=== PATIENT | female | born 1955 | race African-American/Black ===

== ENCOUNTER 2022-01-19 02:04 | Emergency (ER) | payer OTHER ==
--- OUTSIDE RECORDS SUMMARY | 2022-01-19 02:06 | XMS REPORT | Clinical Summary ---
:1955 Author Organization [facility] MD [facility] Address [address] [place] [address] Care Team Providers Name Role Phone Lul Tang MD Unavailable Katiana Ramirez RD Unavailable Unavailable Zeny Parr MD Primary Care Provider Allergies No known active allergies Medications Medication Sig Dispensed Refills Start Date End Date Status cholecalciferol, Take 1,000 0 Ac tive vitamin D3, 1,000 Units by units tablet mouth daily. cyanocobalamin Take 50 mcg 0 Act ting (VITAMIN B-12) 50 mcg by mouth tablet daily. multivitamin Take 1 0 Active (THERAGRAN) tablet tablet by mouth daily. pregabalin (LYRICA) Take 150 mg 0 Active 150 mg capsule by mouth twice daily. aspirin 81 mg EC Take 81 mg 0 Ac tive tablet by mouth. finasteride (PROSCAR) TAKE ONE (1) 0 09/14/2021 Active 1 mg tablet TABLET(S) BY MOUTH ONCE A DAY. spironolactone TAKE ONE (1) 0 11/03/2021 A ctive (ALDACTONE) 50 mg TABLET(S) BY tablet MOUTH ONCE A DAY. propranolol (INDERAL daily. 1 07/23/2017 01/19/20 22 Discontinued LA) 60 mg 24 hr capsule amLODIPine (NORVASC) daily. 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 Cancer Staging: Clinical stage from 11/13: Stage IB (cT1c, cN0, cM0, G3, ER: Negative, SC: Negative, HER2: Negative) - Signed by Andreina Huang MD on 11/13/2017 Pathologic stage from 06/16/2019: No Stag e Recommended (ypT1mi, pN0, cM0, G3, ER- , SC-, HER2-) - Signed by Rena Bai MD on 06/16/2019 Lump in right breast 10/30/2017 Mammography abnormal 10/30/2017 Encounters Date Type Specialty Care Team Description 01/18/2022 Consult Dermatology Vilma Reaves, Postmenopausa l androgenetic alopecia (Primary Dx); Loss of scalp h air; Itching of lesi on of skin; Pain of skin; Hypertrophic brian rgical scar 01/18/2022 Travel 12/25/2021 Orders Only Breast Surgical Rena Bai Loss of sc alp hair Oncology Susanna Pathak, (Primary Dx) 12/07/2021 Office Visit Breast Surgical Rena Bai Cancer of right female Oncology Susanna Pathak, breast, not ot herwise specified 12/07/2021 Ancillary Radiology Yasmany Peraza, Cancer of righ t female Procedure PA breast, not oth erwise specified 12/07/2021 Orders Only Oncology Daren, Triple-negative breast MANUEL Lau cancer <Female> (Primary Dx) 12/07/2021 Orders Only Thoracic Medicine Zeny Parr MD Triple-ne gative breast cancer <Female> (Primary Dx) 12/07/2021 Travel after 01/19/2021 Immunizations Name Administration Dates Next Due Influenza, Unspecified 02/18/2018 Surgical History Surgery Date Site/Laterality Comments COLONOSCOPY 05/19/2013 - Every 3 years - benign 05/18/2014 polyps. HYSTERECTOMY 05/19/1989 - one ovary left 05/18/1990 KNEE SURGERY 05/19/2004 - unsure exactly w hat kind 05/18/2005 of surgery, afte r fall TUMOR REMOVAL 05/19/1983 - malignant fatty tumor 05/18/1984 removal from LEF T leg COLONOSCOPY W/ BIOPSIES 11/05/2017 Medical History Medical History Date Comments Hypertension 20 years ago Regulated with medic ations Migraine Controlled with medi cation Loss of sense of smell 2014 Unspecified lump in unspecified 10/22/2017 Lump in RIGHT breast, Dr. Tang breast discovered 1 week ag o. 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 Mammography abnormal 2015, 2016 RIGHT breast - ivelisse tional view [place], no biopsies. History of radiation therapy 1983 Left leg an d lymph nodes after surgery for removal of malignant fatty tumor. Family History Medical History Relation Name Comments Prostate cancer Brother 1 Joseph Gould Diabetes Brother 2 Rickie Gould Hypertension Father Lai Mckeon Colon cancer Maternal Aunt Eden Smith Hypertension Mother Renea Mckeon Lung cancer Sister Antonietta Chua smoker Breast cancer Neg Hx Ovarian cancer Neg Hx Pancreatic cancer Neg Hx Relation Name Status Comments Brother 1 Joseph Gould Brother 2 Rickie Gould Father Lai Mckeon Maternal Aunt Eden Smith Mother Renea Mckeon Sister Antonietta Chua Social History Tobacco Use Types Packs/Day Years Used Date Never Smoker Smokeless Tobacco: Never Used Alcohol Use Standard Drinks/Week Comments No 0 (1 standard drink = 0.6 oz pure alcoho l) Sex Assigned at Date Recorded Not on file Job Start Date Occupation Industry Not on file Not on file Not on file COVID-19 Exposure Response Date Recorded In the last 10 days, have you been in contact with No / Unsu re 01/18/2022 2:07 PM CDT someone who was confirmed or suspected to have Coronavirus/COVID-19? 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 Plan of Treatment Date Type Specialty Care Team Description 06/10/2022 Office Visit Oncology Judi Mercedes, MANUEL [address] [facility] [address] [place], [place] [address] (Wo rk) 12/06/2022 Lab Lab Zeny Parr MD [address] [place], [place] [address] (Wo rk) 12/06/2022 Ancillary Procedure Radiology Zeny Parr M D [address] [place], [place] [address] (Wo rk) 12/06/2022 Office Visit Oncology Zeny Parr MD [address] [place], [place] [address] (Wo rk) Health Maintenance Due Date Last Done Comments COVID-19 Vaccination (3 - Booster for 01/01/2021 08/01/2020 , 07/11/2020 Pfizer series) Procedures Procedure Name Priority Date/Time Associated Comments Diagnosis MAMMO DIGITAL Routine 12/07/2021 9:53 AM Cancer of right Resul ts for this DIAGNOSTIC BILATERAL CDT female breast, not p rocedure are in W NAGI otherwise specified the resu lts section. after 01/19/2021 Results Mammography Digital Diagnostic Bilateral with Nagi (12/07/2021 9:53 AM CDT) Anatomical Region Laterality Modality Breast Bilateral Mammography Specimen (Source) Anatomical Collection Method Collection Time Re ceived Time Location / / Volume Laterality 12/07/2021 9:54 AM CDT Impressions 12/07/2021 9:54 AM CDT There is no mammographic evidence of malignancy. Follow-up mammogram in 1 year is recomme nded. BI-RADS Category 2: Benign Finding(s) Narrative 12/07/2021 9:54 AM CDT CLINICAL INDICATION: Patient is a 66 year old female and is s een for history of breast cancer MAMMO DIGITAL DIAGNOSTIC BILATERAL W WILLIAM O Digital Mammogram evaluated with Compute r Aided Detection (CAD). COMPARISON: The present examination has been compare d to prior imaging studies performed at an outside location on 04/02/2017, at [facility] on 02/11/2018, and at [facility] on 04/28/2018, 12/01/2018, 12/14/2019 and 11/24/2020. FINDINGS: The breast is heterogeneously dense, whi ch may obscure small masses. There is a post-surgical scar in the rig ht breast. Finding remains unchanged from the prior study. In the left breast, no dominant mass, di stortion, or suspicious calcifications are identified. Tomosynthesis performed in CC and MLO pr ojections. Procedure Note Maximino Preciado MD - 12/07/2021Formattin g of this note might be different from the original. CLINICAL INDICATION: Patient is a 66 year old female and is s een for history of breast cancer MAMMO DIGITAL DIAGNOSTIC BILATERAL W WILLIAM O Digital Mammogram evaluated with Compute r Aided Detection (CAD). COMPARISON: The present examination has been compare d to prior imaging studies performed at an outside location on 04/02/2017, at [facility] on 02/11/2018, and at [facility] on 04/28/2018, 12/01/2018, 12/14/2019 and 11/24/2020. FINDINGS: The breast is heterogeneously dense, whi ch may obscure small masses. There is a post-surgical scar in the rig ht breast. Finding remains unchanged from the prior study. In the left breast, no dominant mass, di stortion, or suspicious calcifications are identified. Tomosynthesis performed in CC and MLO pr ojections. IMPRESSION: There is no mammographic evidence of mal ignancy. Follow-up mammogram in 1 year is recomme nded. BI-RADS Category 2: Benign Finding(s) Yasmany PERALTA IMRah MAMMOGRAPHY ORDERABLES after 01/19/2021 Insurance Payer Benefit Plan Subscriber ID Effective Phone Address Typ e / Group Dates MEDICARE MEDICARE PART [id number] 2020-Prese [phone] [facility] Medicare A AND B nt [address] [place] [address] [employer] MANAGED A[employer] HMO [id number] 2020-Pres [address] HMO [id number] [place] [address] Grace Onofre Personal/Family Self 1955 [address] (Home) [place] [address] Grace Onofre Personal/Family Self 1955 [address] (Home) [place] [address] Care Teams Cardiovascular Technician Relationship Specialty Start Date End Date Lul Tang, PCP - External Referring 10/23/[address] [place] [address] [place], [place] [id number] Zeny Parr MD PCP - General Medical Oncology 03/11/[address] [place] [id number] Katiana Ramirez, RD Clinical Dietitian Nutrition 07/13/[address] [place] [id number]
--- OUTSIDE RECORDS SUMMARY | 2022-01-19 02:09 | XMS REPORT | Continuity of Care Document ---
:1955 Author Organization [facility] t Address [address] [place] [address] Care Team Providers Name Role Phone [phone] Primary Care Physician Unavailable AKIL CHENEY Attending Clinician Unavailable Akil Cheney MD Attending Clinician Gaviota Bai MD Attending Clinician [phone] GAVIOTA BAI Attending Clinician Unavailable Yasmany Mccall Attending Clinician YASMANY BOONE Attending Clinician Unavailable Judi Padilla Attending Clinician Theresa Parr MD Attending Clinician Josiah Jiménez Attending Clinician Gaviota Bai Attending Clinician [phone] TT, THERESA SANDERS Attending Clinician Unavailable Gaviota Bai Admitting Clinician [phone] TU, THERESA SANDERS Admitting Clinician Unavailable Payers Payer Name Policy Type Policy Number Effective Date Expiration Date Yousuf calzada MEDICARE PART A [id number] 2020 AND B 00:00:00 JOSE O [id number] 2020 00:00:00 Problems Condition Condition Condition Status Onset Resolution Last Treating Co mments Source Name Details Category Date Date Treatment Clinician Date 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 00:00: [place] cancer cancer 00 [facility] 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[place] of carcinoma carcinoma [place] upper 00 outer outer Anderso quadrant quadrant n of right of right Cancer female female Center breast breast Lump in Lump in Disease Active Univers right right 6- ity of breast breast 00:00: [place] 00 MD [facility] Mammograph Mammograph Disease Active U nivers y abnormal y abnormal - it y of 00:00: [place] 00 MD [facility] Essential Essential Problem 2018-12-01 Memoria (primary) (primary) 12:56:29 l hypertensi hypertensi He rmann on on 12/01/2018 [facility] Unspecifie Unspecifi Problem 2018-12-01 Memoria d ed 12:56:29 l osteoarthr osteoarthr He rmann itis, itis, unspecifie unspecifie d site d site 12/01/2018 [facility] 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) (current) Herm obinna drug drug therapy therapy 12/01/2018 [facility] Hypertensi Hypertens Problem Active 2021-11-10 Memoria ve ting 03:52:14 l disorder, disorder, Herm obinna systemic systemic arterial arterial (disorder) (disorder) Active Problem 11/10/2021 [facility] [place] Insomnia Insomnia Problem Active 2021-11-10 Memoria (disorder) (disorder) 03:52:14 l Active [place] Problem 11/10/2021 [facility] [place] Lumbosacra Lumbosacr Problem Active 2021-11-10 Memoria l plexus al plexus 03:52:14 l neuropathy neuropathy He rmann (disorder) (disorder) Active Problem 11/10/2021 [facility] [place] Lymphedema Lymphedem Problem Active 2021-11-10 Memoria (disorder) a 03:52:14 l (disorder) Manolo n Active Problem 11/10/2021 [facility] [place] Malignant Malignant Problem Active 2021-11-10 Memoria tumor of tumor of 03:52:14 l breast breast Omer (disorder) (disorder) Active Problem 11/10/2021 [facility] [place] Peripheral Periphera Problem Active 2021-11-10 Memoria nerve l nerve 03:52:14 l disease disease [place] (disorder) (disorder) Active Problem 11/10/2021 [facility] [place] Simple Simple Problem Active 2021-11-10 Mem oria obesity obesity 03:52:14 l (disorder) (disorder) He rmann Active Problem [facility]10[facility]21 [facility] [place] History of Past Illness Condition Condition Condition Status Onset Resolution Last Treating Co mments Source Name Details Category Date Date Treatment Clinician Date Encounter Problem 2018-12-02 2018-12-02 Memoria for other Encounter 2- 11:32:56 11:32:56 l administra for other 05:54: Her arellano tive administra 41 examinatio tive ns examinatio ns 06/23/2018 12/02/2018 [facility] [place] Malignant Malignant Problem 2018-12-01 2018-12-01 Memoria neoplasm neoplasm 1- 12:56:29 12:56:29 l of of 05:05: [place] unspecifie unspecifie 59 d site of d site of right right female female breast breast 05/22/2018 9 [facility] [place] [place] Allergies, Adverse Reactions, Alerts This patient has no known allergies or adverse reactions. Family History Family Member Diagnosis Comments Start Date Stop Date Source Natural brother Prostate cancer [facility] Natural brother Diabetes [facility] Natural father Hypertension [facility] Maternal aunt Colon cancer [facility] Natural mother Hypertension [facility] Natural sister Lung cancer [facility] Family member Breast cancer [facility] Family member Ovarian cancer [facility] Family member Pancreatic cancer [facility] Social History Social Habit Start Date Stop Date Quantity Comments Source Exposure to 2022-01-08 2022-01-18 Not sure [facility]-CoV-2 00:00:00 14:07:00 [place] MD Moncho limon (event) Cancer [place] Alcohol intake 2022-01-18 2022-01-18 Current [facility] 00:00:00 00:00:00 non-drinker of [place] MD Ariel botello alcohol (finding) Cancer Center Social History 2018-05-13 2018-05-[address] [facility] 17:57:45 17:57:45 Tobacco use and 2017-10-28 2017-10-28 Smokeless tobacco Un iversity of exposure 00:00:00 00:00:00 non-user [place] MD [facility] Sex Assigned At [birth year] [facility] 00:00:00 00:00:00 [place] [facility] Smoking Status Start Date Stop Date Source Never smoked tobacco [facility] Medications Ordered Filled Start Stop Current Ordering Indication Dosage Frequency Signature Comments Components Source Medication Medication Date Date Medication? Clinician (SIG) Name Name cholecalcif Yes 1000U Take 1,000 Univers ghassan, 9-02 Units by ity of vitamin D3, 14:19: mouth [place] 1,000 units 07 daily. tablet [facility] cyanocobala Yes 50ug Take 50 Uni vers min 9-02 mcg by ity of (VITAMIN 14:19: mouth [place] B-12) 50 07 daily. mcg tablet [facility] multivitami Yes 1{tbl} Take 1 Un nate n 9-02 tablet by ity of (THERAGRAN) 14:19: mouth [place] tablet 07 daily. MD [facility] pregabalin Yes 150mg Take 150 Un nate (LYRICA) 9-02 mg by ity of 150 mg 14:19: mouth [place] capsule 07 twice MD daily. [facility] aspirin 81 Yes 81mg Take 81 mg U nivers mg EC 9-02 by mouth. ity of tablet 14:19: [place] [facility] spironolact Yes TAKE ONE Un nate one 6-18 (1) ity of (ALDACTONE) 00:00: TABLET(S) [place] 50 mg 00 BY MOUTH tablet ONCE A [facility]. [facility] finasteride Yes TAKE ONE Un nate (PROSCAR) 1 4-29 (1) ity of mg tablet 00:00: TABLET(S) [place] as 00 BY MOUTH ONCE A . [facility] pregabalin Yes 100 mg = 1 M emoria 100 MG Oral 2-05 cap, PO, l Capsule 18:09: BID, # 60 Merissa nn [Lyrica] 00 cap, 3 Refill(s) pregabalin Yes 100 mg = 1 M emoria 100 MG Oral 2-05 cap, PO, l Capsule 18:09: BID, # 60 Merissa nn [Lyrica] 00 cap, 3 Refill(s) pregabalin No 150 mg = 1 M emoria 150 MG Oral 1-30 cap, PO, l Capsule 19:16: BID, # 60 Merissa nn [Lyrica] 00 cap, 2 Refill(s), called to pharmacy pregabalin No 150 mg = 1 M emoria 150 MG Oral 1-30 cap, PO, l Capsule 19:16: BID, # 60 Merissa nn [Lyrica] 00 cap, 2 Refill(s), called to pharmacy pregabalin 2018-05 Yes 150 mg = 1 M emoria 150 MG Oral 0-15 cap, PO, l Capsule 18:26: BID, # 60 Merissa nn [Lyrica] 28 cap, 2 Refill(s), called to pharmacy pregabalin 2018-05 Yes 150 mg = 1 M emoria 150 MG Oral 0-15 cap, PO, l Capsule 18:26: BID, # 60 Merissa nn [Lyrica] 28 cap, 2 Refill(s), called to pharmacy pregabalin Yes 150 mg = 1 M emoria 150 MG Oral 7-01 cap, PO, l Capsule 19:55: BID, # 60 Merissa nn [Lyrica] 01 cap, 2 Refill(s), called to pharmacy pregabalin Yes 150 mg = 1 M emoria 150 MG Oral 7-01 cap, PO, l Capsule 19:55: BID, # 60 Merissa nn [Lyrica] 01 cap, 2 Refill(s), called to pharmacy pregabalin Yes 150 mg = 1 M emoria 150 MG Oral 3-20 cap, PO, l Capsule 23:18: BID, # 60 Merissa nn [Lyrica] 00 cap, 2 Refill(s), called to pharmacy pregabalin Yes 150 mg = 1 M emoria 150 MG Oral 3-20 cap, PO, l Capsule 23:18: BID, # 60 Merissa nn [Lyrica] 00 cap, 2 Refill(s), called to pharmacy acetaminoph 2017-05 No Notes: Do M emoria en-codeine 07-15 not exceed l #3 16:55: 4gm/day of acetaminop hen. (Same as: Tylenol with Codeine # 3) Acetaminoph 2017-05 No Notes: Do M emoria en 07-15 not exceed l 16:55: 4 gm/day. (Same as: Tylenol) acetaminoph 2017-05 No Notes: Do M emoria en-codeine - not exceed l #3 16:55: 4gm/day of acetaminop hen. (Same as: Tylenol with Codeine # 3) Acetaminoph 2017-05 No Notes: Do M emoria en 07-15 not exceed l 16:55: 4 gm/day. (Same as: Tylenol) Meperidine 2017-05 No Notes: Memor ia 07-15 (Same as: l 16:45: Demerol) "Use Precaution in Elderly, Seizure disorders, and Renal impairment " Ondansetron 2017-05 No Notes: Geo michael 07-15 (Same as: l 16:45: Zofran) MEDICATION WASTE Product Size: 4 mg Product Wasted: ___ mg Naloxone 2017-05 No Notes: Memoria 2-27 Same as l 16:45: Narcan Flumazenil 2017-05 No Notes: Memor ia 2-27 (Same as: l 16:45: Romazicon) Hydromorpho 2017-05 No Notes: Geo michael ne 2-27 Same as: l 16:45: Dilaudid Morphine 2017-05 No 2 mg, 1 Memori a 2-27 mL, Route: l 16:45: IVP, Drug form: SOLN, Q5Min, Dosing Weight 78.892, kg, PRN Pain Score 4-6, Start date: 05/14/18 10:45:00 BUSINESS EDUCATION PROFESSOR, Duration: 5 doses or times, Stop date: Limited # of times Labetalol 2017-05 No Notes: Memori a 2-27 (Same as: l 16:45: Normodyne, Trandate) Push over 2 minutes Give bolus over 2-3 minutes. Calcium 2017-05 No 1,000 mL, Memor ia Chloride - Rate: 125 l 0.0014 16:45: ml/hr, MEQ/ML / 00 Infuse Potassium over: 8 Chloride hr, Route: 0.004 IV, Dosing MEQ/ML / Weight Sodium 78.892 kg, Chloride Total 0.103 Volume: MEQ/ML / 1,000, Sodium Start Lactate date: 0.028 05/14/18 MEQ/ML 10:45:00 Injectable BUSINESS EDUCATION PROFESSOR, Solution Duration: 30 day, Stop date: 06/13/18 10:44:00 BUSINESS EDUCATION PROFESSOR, 1.87, m2 Meperidine 2017-05 No Notes: Memor ia 2-27 (Same as: l 16:45: Demerol) "Use Precaution in Elderly, Seizure disorders, and Renal impairment " Ondansetron 2017-05 No Notes: Geo michael 2-27 (Same as: l 16:45: Zofran) MEDICATION WASTE Product Size: 4 mg Product Wasted: ___ mg Naloxone 2017-05 No Notes: Memoria 2-27 Same as l 16:45: Narcan Flumazenil 2017-05 No Notes: Memor ia 2- (Same as: l 16:45: Romazicon) Hydromorpho 2017-05 No Notes: Geo michael ne 07-15 Same as: l 16:45: Dilaudid Morphine 2017-05 No 2 mg, 1 Memori a 2-27 mL, Route: l 16:45: IVP, Drug form: SOLN, Q5Min, Dosing Weight 78.892, kg, PRN Pain Score 4-6, Start date: 05/14/18 10:45:00 BUSINESS EDUCATION PROFESSOR, Duration: 5 doses or times, Stop date: Limited # of times Labetalol 2017-05 No Notes: Memori a 2-27 (Same as: l 16:45: Normodyne, Trandate) Push over 2 minutes Give bolus over 2-3 minutes. Calcium 2017-05 No 1,000 mL, Memor ia Chloride 07-15 Rate: 125 l 0.0014 16:45: ml/hr, MEQ/ML / 00 Infuse Potassium over: 8 Chloride hr, Route: 0.004 IV, Dosing MEQ/ML / Weight Sodium 78.892 kg, Chloride Total 0.103 Volume: MEQ/ML / 1,000, Sodium Start Lactate date: 0.028 05/14/18 MEQ/ML 10:45:00 Injectable BUSINESS EDUCATION PROFESSOR, Solution Duration: 30 day, Stop date: 06/13/18 10:44:00 BUSINESS EDUCATION PROFESSOR, 1.87, m2 ondansetron 2017-05 No Route: IV, Memoria (ANES) 07-15 Drug form: l 16:34: INJ, ONCE, Stop date: 05/14/18 10:34:00 BUSINESS EDUCATION PROFESSOR ondansetron 2017-05 No Route: IV, Memoria (ANES) - Drug form: l 16:34: INJ, ONCE, Stop date: 05/14/18 10:34:00 BUSINESS EDUCATION PROFESSOR phenylephri 2017-05 No Route: IV, Memoria ne (ANES) 07-15 Drug form: l 15:14: INJ, ONCE, Stop date: 05/14/18 9:14:00 BUSINESS EDUCATION PROFESSOR phenylephri 2017-05 No Route: IV, Memoria ne (ANES) 07-15 Drug form: l 15:14: INJ, ONCE, Stop date: 05/14/18 9:14:00 BUSINESS EDUCATION PROFESSOR metoclopram 2017-05 No Route: IV, Memoria benoit (ANES) 07-15 Drug form: l 15:09: INJ, ONCE, [place] 00 Stop date: 05/14/18 9:09:00 BUSINESS EDUCATION PROFESSOR ceFAZolin 2017-05 No Route: IV, Me moria (ANES) 07-15 Drug form: l 15:09: INJ, ONCE, Stop date: 05/14/18 9:09:00 BUSINESS EDUCATION PROFESSOR fentaNYL 2017-05 No Route: IV, Mem oria (ANES) 07-15 Drug form: l 15:09: INJ, ONCE, Stop date: 05/14/18 9:09:00 BUSINESS EDUCATION PROFESSOR propofol 2017-05 No Route: IV, Mem oria (ANES) 07-15 Drug form: l 15:09: INJ, ONCE, Stop date: 05/14/18 9:09:00 BUSINESS EDUCATION PROFESSOR lidocaine 2017-05 No Route: IV, Me moria (ANES) 07-15 Drug form: l 15:09: INJ, ONCE, Stop date: 05/14/18 9:09:00 BUSINESS EDUCATION PROFESSOR metoclopram 2017-05 No Route: IV, Memoria benoit (ANES) 07-15 Drug form: l 15:09: INJ, ONCE, Stop date: 05/14/18 9:09:00 BUSINESS EDUCATION PROFESSOR ceFAZolin 2017-05 No Route: IV, Me moria (ANES) 07-15 Drug form: l 15:09: INJ, ONCE, Stop date: 05/14/18 9:09:00 BUSINESS EDUCATION PROFESSOR fentaNYL 2017-05 No Route: IV, Mem oria (ANES) 07-15 Drug form: l 15:09: INJ, ONCE, [place] 00 Stop date: 05/14/18 9:09:00 BUSINESS EDUCATION PROFESSOR propofol 2017-05 No Route: IV, Mem oria (ANES) 07-15 Drug form: l 15:09: INJ, ONCE, [place] 00 Stop date: 05/14/18 9:09:00 BUSINESS EDUCATION PROFESSOR lidocaine 2017-05 No Route: IV, Me moria (ANES) 07-15 Drug form: l 15:09: INJ, ONCE, [place] 00 Stop date: 05/14/18 9:09:00 BUSINESS EDUCATION PROFESSOR dexamethaso 2017-05 No Route: IV, Memoria ne (ANES) 07-15 Drug form: l 15:04: INJ, ONCE, [place] Stop date: 05/14/18 9:04:00 BUSINESS EDUCATION PROFESSOR midazolam 2017-05 No Route: IV, Me moria (ANES) 07-15 Drug form: l 15:04: SOLN, [place] 00 ONCE, Stop date: 05/14/18 9:04:00 BUSINESS EDUCATION PROFESSOR diphenhydrA 2017-05 No Route: IV, Memoria MINE (ANES) 07-15 Drug form: l 15:04: INJ, ONCE, [place] 00 Stop date: 05/14/18 9:04:00 BUSINESS EDUCATION PROFESSOR dexamethaso 2017-05 No Route: IV, Memoria ne (ANES) 07-15 Drug form: l 15:04: INJ, ONCE, Omer 00 Stop date: 05/14/18 9:04:00 BUSINESS EDUCATION PROFESSOR midazolam 2017-05 No Route: IV, Me moria (ANES) 07-15 Drug form: l 15:04: SOLN, [place] ONCE, Stop date: 05/14/18 9:04:00 BUSINESS EDUCATION PROFESSOR diphenhydrA 2017-05 No Route: IV, Memoria MINE (ANES) 07-15 Drug form: l 15:04: INJ, ONCE, [place] 00 Stop date: 05/14/18 9:04:00 BUSINESS EDUCATION PROFESSOR Lactated 2017-05 No Route: IV, Mem oria Ringers 07-15 Total l Injection 13:53: Volume: Merissa nn IV (ANES) 00 1,000, 1000 mL Start date: 05/14/18 7:53:00 BUSINESS EDUCATION PROFESSOR, Stop date: 05/14/18 8:53:00 BUSINESS EDUCATION PROFESSOR Lactated 2017-05 No Route: IV, Mem oria Ringers 07-15 Total l Injection 13:53: Volume: Merissa nn IV (ANES) 00 1,000, 1000 mL Start date: 05/14/18 7:53:00 BUSINESS EDUCATION PROFESSOR, Stop date: 05/14/18 8:53:00 BUSINESS EDUCATION PROFESSOR Famotidine 2017-05 No 20 mg, 1 Mem oria 20 MG Oral 07-15 tab, l Tablet 13:00: Route: PO, Merissa nn [Pepcid] 00 Drug form: TAB, PRE OP, Dosing Weight 79.091, kg, Start date: 05/14/18 7:00:00 BUSINESS EDUCATION PROFESSOR, Duration: 30 day, Stop date: 06/13/18 6:59:00 BUSINESS EDUCATION PROFESSOR Celebrex 2018-1 No 200 mg, Memori a 2-27 Route: PO, l 13:00: Drug form: [place] CAP ONCALL, Dosing Weight 79.091, kg, Start date: 05/14/18 7:00:00 BUSINESS EDUCATION PROFESSOR, Duration: 30 day, Stop date: 06/13/18 6:59:00 BUSINESS EDUCATION PROFESSOR Famotidine 2018- No 20 mg, Memor ia 2- Route: l 13:00: IVP, Omer ONCALL, Dosing Weight 79.091, kg, Start date: 05/14/18 7:00:00 BUSINESS EDUCATION PROFESSOR, Duration: 1 doses or times Famotidine 2018- No 20 mg, 1 Mem oria 20 MG Oral 2-27 tab, l Tablet 13:00: Route: PO, Merissa nn [Pepcid] 00 Drug form: TAB, PRE OP, Dosing Weight 79.091, kg, Start date: 05/14/18 7:00:00 BUSINESS EDUCATION PROFESSOR, Duration: 30 day, Stop date: 06/13/18 6:59:00 BUSINESS EDUCATION PROFESSOR Celebrex 2018-1 No 200 mg, Memori a 2-27 Route: PO, l 13:00: Drug form: Omer ABRAM ONCALL, Dosing Weight 79.091, kg, Start date: 05/14/18 7:00:00 BUSINESS EDUCATION PROFESSOR, Duration: 30 day, Stop date: 06/13/18 6:59:00 BUSINESS EDUCATION PROFESSOR Famotidine 2018-1 No 20 mg, Memor ia 2-27 Route: l 13:00: IVP, O[place] 00 ONCALL, Dosing Weight 79.091, kg, Start date: 05/14/18 7:00:00 BUSINESS EDUCATION PROFESSOR, Duration: 1 doses or times Acetaminoph 2018- No 1,000 mg, M emoria en 2- Route: PO, l 12:17: ONCE, Omer Dosing Weight 79.091, kg, PRN Pain Score 1-3, Start date: 05/14/18 6:17:00 BUSINESS EDUCATION PROFESSOR Calcium 2018-1 No 1,000 mL, Memor ia Chloride 07-15 Rate: 25 l 0.0014 12:17: ml/hr, Omer MEQ/ML / 00 Infuse Potassium over: 40 Chloride hr, Route: 0.004 IV, Dosing MEQ/ML / Weight Sodium 79.091 kg, Chloride Total 0.103 Volume: MEQ/ML / 1,000, Sodium Start Lactate date: 0.028 05/14/18 MEQ/ML 6:17:00 Injectable BUSINESS EDUCATION PROFESSOR, Solution Duration: 30 day, Stop date: 06/13/18 6:16:00 BUSINESS EDUCATION PROFESSOR, 1.88, m2 Acetaminoph 2017-05 No 1,000 mg, M emoria en 07-15 Route: PO, l 12:17: ONCE, Dosing Weight 79.091, kg, PRN Pain Score 1-3, Start date: 05/14/18 6:17:00 BUSINESS EDUCATION PROFESSOR Calcium 2017-05 No 1,000 mL, Memor ia Chloride 07-15 Rate: 25 l 0.0014 12:17: ml/hr, [place] MEQ/ML / 00 Infuse Potassium over: 40 Chloride hr, Route: 0.004 IV, Dosing MEQ/ML / Weight Sodium 79.091 kg, Chloride Total 0.103 Volume: MEQ/ML / 1,000, Sodium Start Lactate date: 0.028 18 MEQ/ML 6:17:00 Injectable BUSINESS EDUCATION PROFESSOR, Solution Duration: 30 day, Stop date: 06/13/18 6:16:00 BUSINESS EDUCATION PROFESSOR, 1.88, m2 pregabalin 2017-05 No 150 mg = 1 M emoria 150 MG Oral 2-12 cap, PO, l Capsule 15:26: BID, # 60 Merissa nn [Lyrica] 00 cap, 2 Refill(s) pregabalin 2017-05 No 150 mg = 1 M emoria 150 MG Oral 2-12 cap, PO, l Capsule 15:26: BID, # 60 Merissa nn [Lyrica] 00 cap, 2 Refill(s) Propranolol 2017-05 Yes 60 mg, PO, Memoria 2-12 Daily l 14:44: gabapentin 2017-05 No 600 mg, Geo michael 2-12 PO, TID, 0 l 14:44: Refill(s) Tramadol 2017-05 No 50 mg, PO, Mem oria 2-12 PRN, PRN l 14:44: Pain Amlodipine 2017-05 Yes 10 mg, PO, M emoria 2-12 Daily, 0 l 14:44: Refill(s) Propranolol 2017-05 Yes 60 mg, PO, Memoria 2-12 Daily l 14:44: gabapentin 2017-05 No 600 mg, Geo michael 2-12 PO, TID, 0 l 14:44: Refill(s) Tramadol 2017-05 No 50 mg, PO, Mem oria 2-12 PRN, PRN l 14:44: Pain Amlodipine 2017-05 Yes 10 mg, PO, M emoria 2-12 Daily, 0 l 14:44: Refill(s) cyanocobala Yes 1000ug QD Take 1,[address] [facility] [address] min 7-03 [facility]cg [facility] (VITAMIN 16:17: mouth Medical B-12) 1000 01 daily. [place] MCG tablet aspirin 81 Yes 81mg QD Take [address] MG EC 7-03 by [facility] tablet 16:17: daily. [address] amLODIPine Yes 10mg QD Take [address] (NORVASC) 7-03 by [facility] 10 MG 16:17: daily. Medical tablet [address] [place] [address] propranolol Yes 60mg QD Take [address] (INDERAL) 7-03 by mouth [facility] 60 MG 16:17: daily. Medical tablet [address] [place] [address] topiramate Yes 50mg Q.5D Take [address] (TOPAMAX) 7-03 by mouth 2 [facility] 50 MG 16:17: (two) Medical tablet 01 times Center daily. cholecalcif Yes 1000U QD Take 1,[address] ghassan, 7-03 Units by [facility] vitamin D3, 16:17: mouth Medic al (VITAMIN daily. [place] D3) 1,000 unit capsule propranolol 2021- No daily. Uni vers (INDERAL 07-23 ity of [place]) 60 mg 00:00: 00:00 [place] 24 hr 00 :00 capsule Andstephanieo n [facility] amLODIPine 2021- No daily. Univ ers (NORVASC) 07-23 ity of 10 mg 00:00: 00:00 Margarito tablet 00 :00 MD [facility] Immunizations Ordered Filled Immunization Date Status Comments [facility] e Immunization Name Name Influenza, 2018-02-18 [facility] Vital Signs Vital Name Observation Time Observation Value Comments Source Systolic blood 2022-01-18 19:13:21 115 mm[Hg] Univer sity of pressure Margarito [facility] Diastolic blood 2022-01-18 19:13:21 73 mm[Hg] Unive rsity of pressure [place] MD [facility] Heart rate 2022-01-18 19:13:21 77 /min [facility] [place] [facility] MD [facility] Body temperature 2022-01-18 19:13:21 [facility].89 [facility] Respiratory rate 2022-01-18 19:13:21 18 /min [facility] Body weight 2022-01-18 19:13:21 107.4 kg Universi ty [facility] MD [facility] BMI 2022-01-18 19:13:21 43.57 kg/m2 Universi ty [facility] MD [facility] Systolic (mm Hg) 2021-11-07 18:33:00 Geo rial [place] Diastolic (mm Hg) 2021-11-07 18:33:00 Mem orial [place] Heart Rate 2021-11-07 18:33:00 [facility] [place] Respitory Rate 2021-11-07 18:33:00 Memori al [place] Height 2021-11-07 18:33:00 154.94 cm [facility] [place] Weight 2021-11-07 18:33:00 [facility] [place] BMI Calculated 2021-11-07 18:33:00 Memori al [place] Systolic (mm Hg) 2021-02-06 15:36:00 Geo rial [place] Diastolic (mm Hg) 2021-02-06 15:36:00 Mem orial [place] Heart Rate 2021-02-06 15:36:00 [facility] [place] Respitory Rate 2021-02-06 15:36:00 Memori al [place] Height 2021-02-06 15:36:00 154.94 cm [facility] [place] Weight 2021-02-06 15:36:00 [facility] [place] BMI Calculated 2021-02-06 15:36:00 Memori al [place] Height 2020-05-05 21:30:00 157.48 cm [facility] [place] Weight 2020-05-05 21:30:00 [facility] [place] BMI Calculated 2020-05-05 21:30:00 Memori al [place] Systolic (mm Hg) 2020-05-05 21:30:00 Geo rial [place] Diastolic (mm Hg) 2020-05-05 21:30:00 Mem orial [place] Heart Rate 2020-05-05 21:30:00 [facility] [place] Respitory Rate 2020-05-05 21:30:00 Memori al [place] Systolic (mm Hg) 2019-06-23 17:48:00 Geo rial [place] Diastolic (mm Hg) 2019-06-23 17:48:00 Mem orial [place] Heart Rate 2019-06-23 17:48:00 [facility] [place] Respitory Rate 2019-06-23 17:48:00 Memori al [place] Height 2019-06-23 17:48:00 154.94 cm [facility] [place] Weight 2019-06-23 17:48:00 [facility] [place] BMI Calculated 2019-06-23 17:48:00 Memori al [place] Systolic (mm Hg) 2019-03-25 17:47:00 Geo rial [place] Diastolic (mm Hg) 2019-03-25 17:47:00 Mem orial [place] Heart Rate 2019-03-25 17:47:00 [facility] [place] Height 2019-03-25 17:47:00 152.4 cm [facility] [place] Weight 2019-03-25 17:47:00 [facility] [place] BMI Calculated 2019-03-25 17:47:00 Memori al [place] Systolic (mm Hg) 2018-12-31 19:32:00 Geo rial [place] Diastolic (mm Hg) 2018-12-31 19:32:00 Mem orial [place] Heart Rate 2018-12-31 19:32:00 [facility] [place] Respitory Rate 2018-12-31 19:32:00 Memori al [place] Height 2018-12-31 19:32:00 152.4 cm [facility] [place] Weight 2018-12-31 19:32:00 [facility] [place] BMI Calculated 2018-12-31 19:32:00 Memori al [place] Weight 2018-11-25 18:27:00 [facility] BMI Calculated 2018-11-25 18:27:00 Memori al [place] Height 2018-11-25 18:27:00 152.4 cm [facility] [place] Heart Rate 2018-11-25 18:27:00 [facility] [place] Systolic (mm Hg) 2018-11-25 18:27:00 Geo rial [place] Diastolic (mm Hg) 2018-11-25 18:27:00 Mem orial [place] Respitory Rate 2018-11-25 18:27:00 Memori al [place] BMI Calculated 2018-09-02 18:17:00 Memori al [place] Weight 2018-09-02 18:17:00 [facility] [place] Height 2018-09-02 18:17:00 154.94 cm [facility] Heart Rate 2018-09-02 18:17:00 [facility] [place] Respitory Rate 2018-09-02 18:17:00 Memori al [place] Systolic (mm Hg) 2018-09-02 18:17:00 Geo rial [place]mer Diastolic (mm Hg) 2018-09-02 18:17:00 Mem orial [place] Systolic (mm Hg) 2018-06-18 16:21:00 Geo rial [place] Diastolic (mm Hg) 2018-06-18 16:21:00 Mem orial [place] Heart Rate 2018-06-18 16:21:00 [facility] [place] Respitory Rate 2018-06-18 16:21:00 Memori al [place] Height 2018-06-18 16:21:00 149.86 cm [facility] [place] Weight 2018-06-18 16:21:00 [facility] BMI Calculated 2018-06-18 16:21:00 Memori al Omer BMI Calculated 2018-05-26 21:28:00 [facility] Height 2018-05-26 21:28:00 152.4 cm [facility] Weight 2018-05-26 21:28:00 [facility] Systolic (mm Hg) 2018-05-26 21:28:00 [facility] Diastolic (mm Hg) 2018-05-26 21:28:00 [facility] Respitory Rate 2018-05-26 21:28:00 [facility] Heart Rate 2018-05-26 21:28:00 [facility] Systolic (mm Hg) 2018-05-14 18:30:00 Geo [facility] Diastolic (mm Hg) 2018-05-14 18:30:00 [facility] Respitory Rate 2018-05-14 18:30:00 [facility] Systolic (mm Hg) 2018-05-14 18:00:00 [facility] Diastolic (mm Hg) 2018-05-14 18:00:00 [facility] Respitory Rate 2018-05-14 18:00:00 [facility] Respitory Rate 2018-05-14 17:45:00 [facility] Systolic (mm Hg) 2018-05-14 17:45:00 Geo [facility] Diastolic (mm Hg) 2018-05-14 17:45:00 [facility] Heart Rate 2018-05-14 12:30:00 [facility] Weight 2018-05-14 12:08:00 [facility] BMI Calculated 2018-05-14 12:08:00 [facility] Height 2018-05-13 16:45:00 154.94 cm [facility] BMI Calculated 2018-04-29 14:42:00 [facility] Height 2018-04-29 14:42:00 152.4 cm [facility] Weight 2018-04-29 14:42:00 [facility] Heart Rate 2018-04-29 14:42:00 [facility] Systolic (mm Hg) 2018-04-29 14:42:00 Geo [facility] Diastolic (mm Hg) 2018-04-29 14:42:00 [facility] Procedures Procedure Date / Time Performing Clinician Source Performed MAMMO DIGITAL 2021-12-07 14:53:00 Yasmany Boone [place] DIAGNOSTIC BILATERAL W MD [facility] Ar[facility] Biopsy [facility] Hyste[facility] Plan of Care Planned Activity Planned Date Details Comments Source Future Scheduled 2022-01-18 COVID-19 Vaccination Uni versity [place] Test 14:53:08 (3 - Booster for MD Perez Cancer Pfizer series) [code Center = COVID-19 Vaccination (3 - Booster for Pfizer series)] Encounters Start End Encounter Admission Attending Care Care Encounter Source Date/Time Date/Time Type Type Clinicians Facility Department ID 2022-11-07 2022-11-07 Outpatient MHIE IE [id number] [facility] 14:30:00 14:30:00 14 tolu [facility] 2022-11-07 2022-11-07 [id number] 14:30:00 14:30:00 14 tolu [facility] 2022-01-18 2022-01-18 Outpatient KENYA CHENEY MDA MDA [id number] 14:07:29 15:08:55 AKIL valverde 2022-01-18 2022-01-18 Carlos Cheney, 1.2.840.1 [id number] [facility] [place] [facility] 14:00:00 15:08:55 Akil 36147.1.1 ity of 3.412.2.7 [place] .3.021999 MD Sanchez8 [facility] 2022-01-18 2022-01-18 Travel 1.2.840.1 1.2.082.329 [id number] Univers 00:00:00 00:00:00 18538.1.1 350.1.13.41 ity of 3.412.2.7 [place].3.698 [place] .3.683592 084.8 MD Sanchez8 [facility] 2021-12-25 2021-12-25 Isamar Bai, 1.2.840.1 [id number] Univers 00:00:00 00:00:00 Only Gaviota Mullins 14173.1.1 it y of [place] 3.412.2.7 [place] .3.801680 MD Sanchez8 [facility] 2021-12-07 2021-12-07 Office Bhumika, 1.2.840.1 [id number] Univers 13:30:00 13:30:00 Visit Gaviota Mullins 49388.1.1 it y of [place] 3.412.2.7 [place] .3.049841 MD Sanchez8 [facility] 2021-12-07 2021-12-07 Outpatient KENYA BAI MDA MDA [id number] 10:43:24 11:24:57 GAVIOTA valverde 2021-12-07 2021-12-07 Omkar Boone, 1.2.840.1 [id number] Univers 09:15:00 10:15:00 Procedure Yasmany 90772.1.1 it y of 3.412.2.7 [place] .3.799595 MD Sanchez8 [facility] 2021-12-07 2021-12-07 Outpatient KENYA MELY YUSRA [facility] [id number] 09:16:23 09:16:23 YASMANY Bernal [facility] 2021-12-07 2021-12-07 Orders Daren, 1.2.840.1 [id number] Univers 00:00:00 00:00:00 Only Judi 75715.1.1 ity of 3.412.2.7 [place] .3.177677 MD Sanchez8 [facility] 2021-12-07 2021-12-07 Orders Keshav Theresa 1.2.840.1 [id number] Univers 00:00:00 00:00:00 Only 69009.1.1 ity of 3.412.2.7 [place] .3.464472 MD Sanchez8 [facility] 2021-12-07 2021-12-07 Travel 1.2.840.1 1.2.003.852 [id number] Univers 00:00:00 00:00:00 20038.1.1 350.1.13.41 ity of 3.412.2.7 2.[place].3.698 [place] .3.3077[place] 084.8 .[address] [facility] 2021-11-07 2021-11-08 Outpatient nullFlavo MNA [id number] [facility] 18:15:00 04:59:59 r Neurology 13 l Harleen Tello 2021-11-07 2021-11-08 Outpatient nullFlavo MNA [id number] [facility] 18:15:00 04:59:59 r Neurology 13 l Harleen Tello 2021-11-07 2021-11-07 Outpatient KATELIN Jiménez [id number] 13:15:00 23:59:59 Josiah Hoyt 2021-11-07 2021-11-07 Outpatient MHIE IE [id number] [facility] 13:15:00 13:15:00 13 l Omer 2021-02-06 2021-02-07 Outpatient nullFlavo MNA [id number] [facility] 15:15:00 04:59:59 r Neurology 12 l Harleen Tello 2021-02-06 2021-02-07 Outpatient nullFlavo MNA [id number] [facility] 15:15:00 04:59:59 r Neurology 12 l Harleen Mccallann 2021-02-06 2021-02-06 Outpatient Tino [facility] [id number] 10:15:00 23:59:59 Josiah 12 Lai 2021-02-06 2021-02-06 Outpatient MHIE IE [id number] [facility] 10:15:00 10:15:00 12 tolu Tello 2020-12-08 2020-12-08 Outpatient KENYA YUSRA BAI MDA [id number] 11:03:18 11:45:16 GAVIOTA valverde 2020-11-24 2020-11-24 Outpatient KENYA BOONE MDA MDA [id number] MD 10:41:14 10:41:14 YASMANY valverde 2020-05-05 2020-05-06 Outpatient nullFlavo MNA [id number] [facility] 21:15:00 05:59:59 r Neurology 11 l Harleen Mccallann 2020-05-05 2020-05-06 Outpatient nullFlavo MNA [id number] [facility] 21:15:00 05:59:59 r Neurology 11 l Harleen Omer 2020-05-05 2020-05-05 Outpatient Tino [facility] [id number] 15:15:00 23:59:59 Josiah 11 Lai 2020-05-05 2020-05-05 Outpatient MHIE MHIE [id number] [facility] 15:15:00 15:15:00 11 l Omer 2020-01-10 2020-01-12 Outside nullFlavo MNA [id number] [facility]oria 17:42:23 04:59:59 Medical r Neurology 02 l [facility] 2020-01-10 2020-01-12 Outside nullFlavo MNA [id number] [facility] 17:42:23 04:59:59 Medical r Neurology 02 l Records Harleen Tello 2020-01-10 2020-01-11 Outpatient MHMISCHER MHMISCHER [id number] 12:42:23 23:59:59 02 2019-10-20 2019-10-20 Ambulatory nullFlavo MNA [id number] [facility] 18:15:00 18:15:00 Pre-Reg r Neurology 10 l Harleen Tello 2019-10-20 2019-10-20 Ambulatory nullFlavo MNA [id number] [facility] 18:15:00 18:15:00 Pre-Reg r Neurology 10 l Harleen Tello 2019-10-20 2019-10-20 Outpatient MHIE MHIE [id number] [facility] 13:15:00 13:15:00 10 tolu Tello 2019-10-20 2019-10-20 [id number] 13:15:00 13:15:00 Josiah Keenan Lai 2019-06-23 2019-06-24 Outpatient nullFlavo MNA [id number] Memoria 17:30:00 05:59:59 r Neurology 09 l Harleen Tello 2019-06-23 2019-06-24 Outpatient nullFlavo MNA [id number] [facility] 17:30:00 05:59:59 r Neurology 09 l Harleen Tello 2019-06-23 2019-06-23 [facility] [id number] 11:30:00 23:59:59 Josiah 09 Lai 2019-06-23 2019-06-23 Outpatient MHIE MHIE [id number] Memoria 11:30:00 11:30:00 09 tolu Tello 2019-03-25 2019-03-26 Outpatient nullFlavo MNA [id number] [facility] 17:30:00 05:59:59 r Neurology 08 tolu Tello 2019-03-25 2019-03-26 Outpatient nullFlavo MNA [id number] [facility] 17:30:00 05:59:59 r Neurology 08 tolu Tello 2019-03-25 2019-03-25 [facility]patient [facility] [id number] 11:30:00 23:59:59 Josiah 08 Lai 2019-03-25 2019-03-25 Outpatient MHIE MHIE [id number] [facility] 11:30:00 11:30:00 08 tolu Tello 2018-12-31 2019-01-01 Outpatient nullFlavo MNA [id number] [facility] 21:00:00 04:59:59 r Neurology 07 tolu Tello 2018-12-31 2019-01-01 Outpatient nullFlavo MNA [id number] [facility] 21:00:00 04:59:59 r Neurology 07 tolu Can[facility]o [facility] 2018-12-31 2018-12-31 [id number] 16:00:00 23:59:59 Josiah Bryce Hoyt 2018-12-31 2018-12-31 Outpatient MHIE MHIE [id number] [facility] 16:00:00 16:00:00 07 tolu Tello 2018-11-25 2018-11-26 Outpatient nullFlavo MNA [id number] [facility] 18:30:00 04:59:59 r Neurology 06 tolu [facility] [place] 2018-11-25 2018-11-26 Outpatient nullFlavo MNA [id number] [facility] 18:30:00 04:59:59 r Neurology 06 tolu [facility] 2018-11-25 2018-11-25 [id number] 13:30:00 23:59:59 Josiah Jed Hoyt 2018-11-25 2018-11-25 Outpatient MHIE IE [id number] [facility] 13:30:00 13:30:00 06 tolu [place] 2018-09-02 2018-09-03 Outpatient nullFlavo MNA [id number] [facility] 18:15:00 04:59:59 r Neurology 05 tolu [facility]o [facility] 2018-09-02 2018-09-03 Outpatient nullFlavo MNA [id number] [facility] 18:15:00 04:59:59 r Neurology 05 tolu [facility]seco [facility] 2018-09-02 2018-09-02 Outpatient BEBE JiménezSCHCRYSTAL [facility] [id number] 13:15:00 23:59:59 Josiahcameron Hoyt 2018-09-02 2018-09-02 Outpatient MHIE MHIE [id number] Memoria 13:15:00 13:15:00 05 tolu Omer 2018-07-14 2018-07-14 Outpatient MHIE MHIE [id number] [facility]oria 13:45:00 13:45:00 02 tolu [place] 2018-07-14 2018-07-14 Outpatient MHIE MHIE [id number] [facility]oria 13:45:00 13:45:00 02 tolu Omer 2018-07-01 2018-07-01 Outpatient MHIE MHIE [id number] [facility]oria 11:30:00 11:30:00 04 tolu Omer 2018-07-01 2018-07-01 Outpatient MHIE MHIE [id number] [facility] 11:30:00 11:30:00 04 tolu Omer 2018-06-18 2018-06-19 Outpatient nullFlavo MNA [id number] [facility] 16:00:00 05:59:59 r Neurology 03 l [facility] 2018-06-18 2018-06-19 Outpatient nullFlavo MNA [id number] [facility] 16:00:00 05:59:59 r Neurology 03 l [facility] 2018-06-17 2018-06-19 Phone nullFlavo MNA [id number] [facility]oria 19:26:00 05:59:59 Message r Neurology 00 l [facility] 2018-06-17 2018-06-19 Phone nullFlavo MNA [id number] [facility]oria 19:26:00 05:59:59 Message r Neurology 00 l [facility] 2018-06-18 2018-06-18 Outpatient Tino MISCHER MHMISCHER [id number] 10:00:00 23:59:59 Josiah Luna Lai 2018-06-17 2018-06-18 Outpatient MHMISCHER MHMISCHER [id number] 13:26:00 23:59:59 00 2018-06-18 2018-06-18 Outpatient MHIE MHIE [id number] Memoria 10:00:00 10:00:00 03 tolu Omer 2018-05-26 2018-05-27 Outpatient nullFlavo MNA [id number] [facility] 21:15:00 05:59:59 r Neurology 01 tolu [facility] 2018-05-26 2018-05-27 Outpatient nullFlavo MNA [id number] [facility] 21:15:00 05:59:59 r Neurology 01 l [facility] St[facility]ikolay Tello 2018-05-26 2018-05-26 Outpatient BEBE [facility]SCHER [facility] [id number] 15:15:00 23:59:59 Josiah Kayley Hoyt 2018-05-26 2018-05-26 Outpatient MHIE MHIE [id number] Memoria 15:15:00 15:15:00 01 tolu Tello 2018-05-14 2018-05-15 Outpt Diag nullFlavo [facility] [id number] Memoria 14:59:00 05:59:00 Services r Outpatient 01 l Imaging [facility] 2018-05-14 2018-05-15 Outpt Diag nullFlavo [facility] [id number] Memoria 14:59:00 05:59:00 Services r Outpatient 01 l [facility] 2018-05-14 2018-05-14 Outpatient IRVIN Bai [facility] [id number] 08:59:00 23:59:00 Monique [place] 2018-05-14 2018-05-14 Day nullFlavo [facility] [id number] Memoria 12:10:58 18:48:00 Surgery r [facility] 00 l [facility] [place] 2018-05-14 2018-05-14 Day nullFlavo [facility] [id number] [facility] 12:10:58 18:48:00 Surgery r [facility] 00 l [facility] Mer[place] 2018-05-14 2018-05-14 Outpatient Bhumika SL [facility] [id number] 06:10:58 12:48:00 Monique [place] 2018-05-13 2018-05-14 Outpt Diag nullFlavo [facility] [id number] Memoria 15:07:00 05:59:00 Services r Outpatient 00 l [facility] 2018-05-13 2018-05-14 Outpt Diag nullFlavo [facility] [id number] Memoria 15:07:00 05:59:00 Services r Outpatient 00 l [facility] 2018-05-13 2018-05-13 Outpatient Bhumika [id number] 09:07:00 23:59:00 MoniqueSusanna [place] 2018-04-29 2018-04-30 Outpatient nullFlavo [facility] [id number] Memoria 14:00:00 05:59:59 r Neurology 00 l [facility] Tello 2018-04-29 2018-04-30 Outpatient nullFlavo MNA [id number] Memoria 14:00:00 05:59:59 r Neurology 00 l Harleen Mccallann 2018-04-29 2018-04-29 Outpatient T[facility] [id number] 08:00:00 23:59:59 Josiah 00 Lai 2018-04-29 2018-04-29 Outpatient NATASHAIE EJ [id number] Memoria 08:00:00 08:00:00 00 l [facility]mer Results Test Description Test Time Test Comments Results Result Comments Source ANEMIA STUDY 2018-06-15 20:01:00 Test Item Value Reference Range Interpretation Comme nts Vitamin B12 Lvl (test code = Vitamin B12 Lvl) [facility]t 200-1100 [id number] 20:01:00 Test Item Value Reference Range Interpretation Comments Vitamin B12 Lvl (test code = Vitamin no gt 200-1100 B12 Lvl) [facility]2019-01-28 20:01:00 Test Item Value Reference Range Interpretation Comments VITAMIN B1 (THIAMINE) WHOLE BLOOD (test 98 78-185 code = VITAMIN B1 (THIAMINE) WHOLE BLOOD) [facility] 20:01:00 Test Item Value Reference Range Interpretation Comments KENNY Ser Interp (test code = KENNY SEE COMMENT Ser Interp) [facility]2019-01-28 20:01:00 Test Item Value Reference Range Interpretation Comments VITAMIN B1 (THIAMINE) WHOLE BLOOD (test 98 78-185 code = VITAMIN B1 (THIAMINE) WHOLE BLOOD) [facility]ByudtjuIXSZQHLDKQ5092-98-08 20:01:00 Test Item Value Reference Range Interpretation Comments KENNY Ser Interp (test code = KENNY SEE COMMENT Ser Interp) [facility]2018-12-26 18:10:00 Test Item Value Reference Range Interpretation Comments Creatinine Lvl (test code = Creatinine 1.01 0.50-1.40 Lvl) [facility]2018-12-26 18:10:00 Test Item Value Reference Range Interpretation Comments Sodium Lvl (test code = Sodium Lvl) 140 135-145 [facility]2018-12-26 18:10:00 Test Item Value Reference Range Interpretation Comments BUN (test code = BUN) 34 7-22 [facility]2018-12-26 18:10:00 Test Item Value Reference Range Interpretation Comments B/C Ratio (test code = B/C Ratio) 34 1 6-25 [facility]2018-12-26 18:10:00 Test Item Value Reference Range Interpretation Comments AGAP (test code = AGAP) 13.5 10.0-20.0 [facility]2018-12-26 18:10:00 Test Item Value Reference Range Interpretation Comments A/G Ratio (test code = A/G Ratio) 0.9 1 0.7-1.6 [place] 197588-12-26 18:10:00 Test Item Value Reference Range Interpretation Comments Globulin (test code = Globulin) 4.0 2.7-4.2 [facility]fygdWSXSRXPGIY2599-35-60 18:10:00 Test Item Value Reference Range Interpretation Comments Platelet (test code = Platelet) 195 133-450 [facility] MarshallIlvmjrfSIEPIHIQLF6932-54-75 18:10:00 Test Item Value Reference Range Interpretation Comments MPV (test code = MPV) 8.5 7.4-10.4 [facility] MarshallIegmzfzGAJXZHWUAQ8550-58-31 18:10:00 Test Item Value Reference Range Interpretation Comments RDW (test code = RDW) 15.2 11.5-14.5 [facility] MarshallIefqyehMESNYJOEUK9134-08-05 18:10:00 Test Item Value Reference Range Interpretation Comments Hct (test code = Hct) 35.1 36.0-48.0 [facility] MarshallGzpurmoWCHFGXOXHC9035-37-34 18:10:00 Test Item Value Reference Range Interpretation Comments MCH (test code = MCH) 30.2 pg 27.0-31.0 [facility] MarshallLbehcepAIIFVXCMNO5361-71-16 18:10:00 Test Item Value Reference Range Interpretation Comments MCV (test code = MCV) 93.7 80.0-98.0 [facility] MarshallRplmafvIUTNYGOKJP5745-56-44 18:10:00 Test Item Value Reference Range Interpretation Comments MCHC (test code = MCHC) 32.2 32.0-36.0 [facility] MarshallCctwclwUBBPSUJJAS3478-05-91 18:10:00 Test Item Value Reference Range Interpretation Comments Hgb (test code = Hgb) 11.3 12.0-16.0 [place] 270568-12-26 18:10:00 Test Item Value Reference Range Interpretation Comments RBC (test code = RBC) 3.75 4.20-5.40 [facility] MarshallNltpqbiIZQIDNTPQW0929-99-73 18:10:00 Test Item Value Reference Range Interpretation Comments WBC (test code = WBC) 5.4 3.7-10.4 [facility] M[id number] 18:10:00 Test Item Value Reference Range Interpretation Comments Basophils (test code = 0.8 See_Comment [Aut omated message] The Basophils) system which ge nerated this result tra nsmitted reference range : <=1.0. The reference r payam was not used to int erpret this result as normal/abnormal . [facility] MarshallMqqauivCEVIHTEXUC3771-46-35 18:10:00 Test Item Value Reference Range Interpretation Comments Eosinophils # (test code 0.1 See_Comment [A utomated message] The = Eosinophils #) system wh h generated this result tra nsmitted reference range : <=0.5. The reference r payam was not used to int erpret this result as normal/abnormal . [facility] MarshallFmvjbexWCNGPKMZBA7044-49-63 18:10:00 Test Item Value Reference Range Interpretation Comments Monocytes # (test code 0.5 See_Comment [Aut omated message] The = Monocytes #) system which generated this result tra nsmitted reference range : <=0.8. The reference r payam was not used to int erpret this result as normal/abnormal . [facility] MarshallEtomrikEGYWNPUWZF4725-21-59 18:10:00 Test Item Value Reference Range Interpretation Comments Eosinophils (test code = 2.2 See_Comment [A utomated message] The Eosinophils) system which ge nerated this result tra nsmitted reference range : <=4.0. The reference r payam was not used to int erpret this result as normal/abnormal . [facility] MarshallKexfiqbRONUJAFQMJ1168-04-37 18:10:00 Test Item Value Reference Range Interpretation Comments Monocytes (test code = Monocytes) 9.7 2.0-12.0 [facility] MarshallFtwxojaEQSOTZWPYI6794-68-22 18:10:00 Test Item Value Reference Range Interpretation Comments Lymphocytes # (test code = Lymphocytes 1.4 1.0-5.5 #) [facility] M[id number] 18:10:00 Test Item Value Reference Range Interpretation Comments Neutrophils # (test code = Neutrophils 3.4 1.5-8.1 #) [facility] MarshallCpghtldWWWCZJHUJW9352-41-31 18:10:00 Test Item Value Reference Range Interpretation Comments Segs (test code = Segs) 61.7 45.0-75.0 [place] 270568-12-26 18:10:00 Test Item Value Reference Range Interpretation Comments Lymphocytes (test code = Lymphocytes) 25.6 20.0-40.0 [place] 270568-12-26 18:10:00 Test Item Value Reference Range Interpretation Comments RBC (test code = RBC) 3.75 4.20-5.40 [place] 197588-12-26 18:10:00 Test Item Value Reference Range Interpretation Comments eGFR (test code = eGFR) 69 [facility]2018-12-26 18:10:00 Test Item Value Reference Range Interpretation Comments Albumin Lvl (test code = Albumin Lvl) 3.5 3.5-5.0 [facility]2018-12-26 18:10:00 Test Item Value Reference Range Interpretation Comments AST (test code = AST) 19 See_Comment [Auto mated message] The system which ge nerated this result transmit belia reference range : <=37. The reference range was not used to interpr et this result as leidy l/abnormal. [facility]2018-12-26 18:10:00 Test Item Value Reference Range Interpretation Comments ALT (test code = ALT) 19 See_Comment [Auto mated message] The system which ge nerated this result transmit belia reference range : <=65. The reference range was not used to interpr et this result as leidy l/abnormal. [facility]2018-12-26 18:10:00 Test Item Value Reference Range Interpretation Comments Alk Phos (test code = Alk Phos) 34 39-136 [facility]2018-12-26 18:10:00 Test Item Value Reference Range Interpretation Comments Bili Total (test code = Bili Total) 0.8 0.2-1.3 [place] 197588-12-26 18:10:00 Test Item Value Reference Range Interpretation Comments Glucose Lvl (test code = Glucose Lvl) 93 70-99 [place] 197588-12-26 18:10:00 Test Item Value Reference Range Interpretation Comments Total Protein (test code = Total 7.5 6.4-8.4 Protein) [facility]2018-12-26 18:10:00 Test Item Value Reference Range Interpretation Comments Calcium Lvl (test code = Calcium Lvl) 10.0 8.5-10.5 [facility]2018-12-26 18:10:00 Test Item Value Reference Range Interpretation Comments CO2 (test code = CO2) 25 24-32 [facility] M[id number] 18:10:00 Test Item Value Reference Range Interpretation Comments WBC (test code = WBC) 5.4 3.7-10.4 [facility]2018-12-26 18:10:00 Test Item Value Reference Range Interpretation Comments Chloride Lvl (test code = Chloride Lvl) 105 95-109 [facility]2018-12-26 18:10:00 Test Item Value Reference Range Interpretation Comments Potassium Lvl (test code = Potassium 3.5 3.5-5.1 Lvl) [facility] M[id number] 18:10:00 Test Item Value Reference Range Interpretation Comments Basophils (test code = 0.8 See_Comment [Aut omated message] The Basophils) system which ge nerated this result tra nsmitted reference range : <=1.0. The reference r payam was not used to int erpret this result as normal/abnormal . [facility] M[id number] 18:10:00 Test Item Value Reference Range Interpretation Comments Eosinophils # (test code 0.1 See_Comment [A utomated message] The = Eosinophils #) system whic h generated this result tra nsmitted reference range : <=0.5. The reference r payam was not used to int erpret this result as normal/abnormal . [facility] Ma[id number] 18:10:00 Test Item Value Reference Range Interpretation Comments Monocytes # (test code 0.5 See_Comment [Aut omated message] The = Monocytes #) system which generated this result tra nsmitted reference range : <=0.8. The reference r payam was not used to int erpret this result as normal/abnormal . [facility] M[id number] 18:10:00 Test Item Value Reference Range Interpretation Comments Eosinophils (test code = 2.2 See_Comment [A utomated message] The Eosinophils) system which ge nerated this result tra nsmitted reference range : <=4.0. The reference r payam was not used to int erpret this result as normal/abnormal . [place] 270568-12-26 18:10:00 Test Item Value Reference Range Interpretation Comments Monocytes (test code = Monocytes) 9.7 2.0-12.0 [facility] M[id number] 18:10:00 Test Item Value Reference Range Interpretation Comments Lymphocytes # (test code = Lymphocytes 1.4 1.0-5.5 #) [facility] M[id number] 18:10:00 Test Item Value Reference Range Interpretation Comments Neutrophils # (test code = Neutrophils 3.4 1.5-8.1 #) [place] 270568-12-26 18:10:00 Test Item Value Reference Range Interpretation Comments Segs (test code = Segs) 61.7 45.0-75.0 [place] 270568-12-26 18:10:00 Test Item Value Reference Range Interpretation Comments Lymphocytes (test code = Lymphocytes) 25.6 20.0-40.0 [facility]2018-12-26 18:10:00 Test Item Value Reference Range Interpretation Comments eGFR (test code = eGFR) 69 [facility]2018-12-26 18:10:00 Test Item Value Reference Range Interpretation Comments Albumin Lvl (test code = Albumin Lvl) 3.5 3.5-5.0 [facility]2018-12-26 18:10:00 Test Item Value Reference Range Interpretation Comments AST (test code = AST) 19 See_Comment [Auto mated message] The system which ge nerated this result transmit belia reference range : <=37. The reference range was not used to interpr et this result as leidy l/abnormal. [place] [id number] 18:10:00 Test Item Value Reference Range Interpretation Comments ALT (test code = ALT) 19 See_Comment [Auto mated message] The system which ge nerated this result transmit belia reference range : <=65. The reference range was not used to interpr et this result as leidy l/abnormal. [place] 197588-12-26 18:10:00 Test Item Value Reference Range Interpretation Comments Alk Phos (test code = Alk Phos) 34 39-136 [facility]2018-12-26 18:10:00 Test Item Value Reference Range Interpretation Comments Bili Total (test code = Bili Total) 0.8 0.2-1.3 [facility]2018-12-26 18:10:00 Test Item Value Reference Range Interpretation Comments Glucose Lvl (test code = Glucose Lvl) 93 70-99 [facility]2018-12-26 18:10:00 Test Item Value Reference Range Interpretation Comments Total Protein (test code = Total 7.5 6.4-8.4 Protein) [facility]2018-12-26 18:10:00 Test Item Value Reference Range Interpretation Comments Calcium Lvl (test code = Calcium Lvl) 10.0 8.5-10.5 [facility]2018-12-26 18:10:00 Test Item Value Reference Range Interpretation Comments CO2 (test code = CO2) 25 24-32 [facility]2018-12-26 18:10:00 Test Item Value Reference Range Interpretation Comments Chloride Lvl (test code = Chloride Lvl) 105 95-109 [facility]2018-12-26 18:10:00 Test Item Value Reference Range Interpretation Comments Potassium Lvl (test code = Potassium 3.5 3.5-5.1 Lvl) [facility]2018-12-26 18:10:00 Test Item Value Reference Range Interpretation Comments Creatinine Lvl (test code = Creatinine 1.01 0.50-1.40 Lvl) [facility]2018-12-26 18:10:00 Test Item Value Reference Range Interpretation Comments Sodium Lvl (test code = Sodium Lvl) 140 135-145 [facility]2018-12-26 18:10:00 Test Item Value Reference Range Interpretation Comments BUN (test code = BUN) 34 7-22 [facility]2018-12-26 18:10:00 Test Item Value Reference Range Interpretation Comments B/C Ratio (test code = B/C Ratio) 34 1 6-25 [facility]2018-12-26 18:10:00 Test Item Value Reference Range Interpretation Comments AGAP (test code = AGAP) 13.5 10.0-20.0 [facility] [id number] 18:10:00 Test Item Value Reference Range Interpretation Comments A/G Ratio (test code = A/G Ratio) 0.9 1 0.7-1.6 [facility] [id number] 18:10:00 Test Item Value Reference Range Interpretation Comments Globulin (test code = Globulin) 4.0 2.7-4.2 [id number] 18:10:00 Test Item Value Reference Range Interpretation Comments Platelet (test code = Platelet) 195 133-450 [facility] [id number] 18:10:00 Test Item Value Reference Range Interpretation Comments MPV (test code = MPV) 8.5 7.4-10.4 [facility] [id number] 18:10:00 Test Item Value Reference Range Interpretation Comments RDW (test code = RDW) 15.2 11.5-14.5 [facility] [id number] 18:10:00 Test Item Value Reference Range Interpretation Comments Hct (test code = Hct) 35.1 36.0-48.0 [facility] [id number] 18:10:00 Test Item Value Reference Range Interpretation Comments MCH (test code = MCH) 30.2 pg 27.0-31.0 [facility] [id number] 18:10:00 Test Item Value Reference Range Interpretation Comments MCV (test code = MCV) 93.7 80.0-98.0 [facility] [id number] 18:10:00 Test Item Value Reference Range Interpretation Comments MCHC (test code = MCHC) 32.2 32.0-36.0 [facility] [id number] 18:10:00 Test Item Value Reference Range Interpretation Comments Hgb (test code = Hgb) 11.3 12.0-16.0 [facility] INS W/PORT [id number] 17:06:00Reason for Exam:->C50.919FINAL REPORT HISTORY: Breast cancer PROCEDURE: Following informed written consent, the patient's left cervical region and anterior chest wall were prepped draped in the usual sterile manner and maximum sterile barrier techniques were utilized. 2% lidocaine was given locally for anesthesia. Additionally, the patient received 1 mg IV Versed and 50 mcg IV fentanyl for conscious sedation and pain control. Vital signs were monitored and remained stable. Conscious sedation and continuous patient monitoring were performed by the attending radiologist and a registered nurse for approximately 30 minutes during the procedure. Access was gained to the left internal jugular vein using ultrasound guidance a micropuncture needle. A short transverse incision was made in the left anterior chest wall. Using blunt dissection, a subcutaneous pocket was created just beneath the incision. The por ta catheter was tunneled from the pocket to the jugular access site in place through a peel-away sheath into position centrally under fluoroscopic control. The catheter was cut to appropriate length and attached to the portacatheter reservoir which was subsequently buried in the subcutaneous. The pocket was irrigated using an antibiotic solution enclosed using 3-0 Monocryl resorbable suture. Steri-Strips, dermabond and a sterile bandage were applied. There were no immediate complications. Patient was discharged from the department in stable condition. FINDINGS: Spot film of the chest following portacatheter placement demonstrates the portacatheter to lie in expected position with its tip over the caval atrial junction. There is no pneumothorax. Ultrasound image obtained prior to port placement demonstrates a patent and compressible left internal jugular vein without evidence for thrombosis. Ultrasound image of the left internal jugular vein was obtained and archived on PACs. IMPRESSION: 1. Successful uncomplicated placement of a left internal jugular chest port. Fluoroscopy time: 0.5 minutesEstimated dose in (Ka,r): 4 mGy Signed: Shavon Hubbard MDReport Verified Date/Time: 11/18/2017 17:06:51 Reading Location: [facility] Radiology Reading Room RAD, CHEST, 1 VIEW, NON [id number] 16:03:00Reason for Exam:->[id number] FINAL REPORT Chest, 1 view. History: Port-A-Cath placement. Comparison: None available. Discussion: Left chest wall Port-A-Cath with tip overlying the cavoatrial junction. No pneumothorax. The cardiomediastinal silhouette and pulmonary vasculature are unremarkable. The lungs are clear without evidence of consolidation or effusion. Left humerus is oriented inferior to the glenoid.Otherwise the soft tissues and osseous structures are intact. IMPRESSION: Left chest wall Port-A-Cath with tip overlying the cavoatrial junction, no pneumothorax. Signed: Kirk Morris MDReport Verified Date/Time: 11/18/2017 16:03:06 Reading Location: [address] Transitional Reading Room CBC W/PLT COUNT & AUTO [id number] 13:03:00 Test Item Value Reference Range Interpretation Comments WHITE BLOOD CELL COUNT (BEAKER) 5.1 K/ L 4.0-10.0 (test code = 775) RED BLOOD CELL COUNT (BEAKER) 5.02 M/ L 4.00-5.00 H (test code = 761) HEMOGLOBIN (BEAKER) (test code = 13.9 GM/DL 12.0-15.0 410) HEMATOCRIT (BEAKER) (test code = 43.7 % 36.0-45.0 411) MEAN CORPUSCULAR VOLUME (BEAKER) 87.1 fL 82.0-99.0 (test code = 753) MEAN CORPUSCULAR HEMOGLOBIN 27.8 pg 27.0-33.0 (BEAKER) (test code = 751) MEAN CORPUSCULAR HEMOGLOBIN CONC 31.9 GM/DL 32.0-36.0 L (BEAKER) (test code = 752) RED CELL DISTRIBUTION WIDTH 14.9 % 10.3-14.2 H (BEAKER) (test code = 412) PLATELET COUNT (BEAKER) (test 222 K/CU MM 150-430 code = 756) MEAN PLATELET VOLUME (BEAKER) 8.4 fL 6.5-10.5 (test code = 754) NUCLEATED RED BLOOD CELLS 0 /100 WBC 0-0 (BEAKER) (test code = 413) NEUTROPHILS RELATIVE PERCENT 45 % (BEAKER) (test code = 429) LYMPHOCYTES RELATIVE PERCENT 43 % (BEAKER) (test code = 430) MONOCYTES RELATIVE PERCENT 8 % (BEAKER) (test code = 431) EOSINOPHILS RELATIVE PERCENT 3 % (BEAKER) (test code = 432) BASOPHILS RELATIVE PERCENT 1 % (BEAKER) (test code = 437) NEUTROPHILS ABSOLUTE COUNT 2.30 K/ L 1.80-8.00 (BEAKER) (test code = 670) LYMPHOCYTES ABSOLUTE COUNT 2.20 K/ L 1.48-4.50 (BEAKER) (test code = 414) MONOCYTES ABSOLUTE COUNT (BEAKER) 0.40 K/ L 0.00-1.30 (test code = 415) EOSINOPHILS ABSOLUTE COUNT 0.20 K/ L 0.00-0.50 (BEAKER) (test code = 416) BASOPHILS ABSOLUTE COUNT (BEAKER) 0.00 K/ L 0.00-0.20 (test code = 417) [id number] 12:58:00 Test Item Value Reference Range Interpretation Comments PROTIME (BEAKER) (test code = 759) 10.4 sec 9.3-12.0 INR (BEAKER) (test code = 370) 1.0 <=5.9 PARTIAL THROMBOPLASTIN TIME (BEAKER) 23.4 sec 23.0-35.0 (test code = 760) RECOMMENDED COUMADIN/WARFARIN INR THERAPY RANGESSTANDARD DOSE: 2.0 - 3.0 Includes: PROPHYLAXIS for venous thrombosis, systemic embolization; TREATMENT for venous thrombosis and/or pulmonary embolus.HIGH RISK: Target INR is 2.5-3.5 for patients with mechanical heart valves.Final Information (Auto Output)Final Information (Auto Output)Final Information (Auto Output)
[2022-01-19 03:40] LABS: Absolute Lymphocytes (CBC) 1.3 K/uL (0.7-4.9); Hematocrit 39.6 % (36.0-45.0); Lymphocytes % 17.6 % (15.3-44.8); MCV 85.4 fL (80-100); MPV 7.6 fL (7.6-11.3); RBC Red Blood Cell Count 4.64 M/uL (3.86-4.86)
[2022-01-19 03:44] LABS: Protime INR 1.02
[2022-01-19] MEDS ORDERED: KETOROLAC 30 MG/ML INJ ONE (03:45)
[2022-01-19] MEDS ORDERED: MORPHINE 2 MG/ML SYR ONE (03:45)
[2022-01-19] MEDS ORDERED: ASPIRIN 81 MG CHEWABLE TABLET ONE (03:45)
[2022-01-19] MEDS ORDERED: ONDANSETRON 4 MG/2 ML VIAL ONE (03:45)
[2022-01-19 04:24] LABS: Albumin 3.5 g/dL (3.4-5.0); Bilirubin Direct 0.1 mg/dL (0-0.2); Bilirubin Total 0.6 mg/dL (0.2-1.0); Magnesium 1.9 mg/dL (1.8-2.4); Potassium 4.4 mmol/L (3.5-5.1); Protein, Total 7.7 g/dL (6.4-8.2); Troponin High Sensitivity 7.9 pg/mL (<58.9)
--- NOTE | 2022-01-19 04:38 | EDPHYS ---
Physician Documentation [facility] Name: Grace Onofre Age: 66 yrs Sex: Female : 1955 Arrival Date: 01/19/2022 Time: 02:09 Bed 6 Private MD: DANIELLE Physician Fran Todd HPI: 01/19 02:41 This 66 yrs old Black Female presents to ER via Ambulatory with complaints of Arm Pain, christina LEFT. 02:41 The patient or guardian complains of pain, that is acute. The complaints affect the christina left bicep, dorsal aspect of left forearm, left tricep and palmar aspect of left forearm. Context: The problem was sustained at home, resulted from unknown cause. Onset: The symptoms/episode began/occurred and improved. Treatment prior to arrival includes: no previous treatment. Modifying factors: The symptoms are alleviated by nothing. the symptoms are aggravated by nothing. Associated signs and symptoms: The patient has no apparent associated signs or symptoms. Severity of symptoms: At their worst the symptoms were mild, in the emergency department the symptoms are unchanged. The patient has not experienced similar symptoms in the past. Historical: - Allergies: 02:19 No Known Allergies; as6 - Home Meds: 02:19 finasteride 1 mg oral tab 1 tab once daily [Active]; spironolactone 50 mg Oral tab 1 as6 tab once daily [Active]; pregabalin 150 mg Oral cap 1 cap 2 times per day [Active]; - PMHx: 02:19 Hypertensive disorder; as6 - PSHx: 02:19 breast; Total abdominal hysterectomy; as6 - Immunization history:: Client reports receiving the 2nd dose of the Covid vaccine, [employer]. - Social history:: Smoking status: Patient denies any tobacco usage or history of. - Family history:: not pertinent. ROS: 02:41 Constitutional: Negative for fever, chills, and weight loss, Eyes: Negative for injury, christina pain, redness, and discharge, ENT: Negative for injury, pain, and discharge, Neck: Negative for injury, pain, and swelling, Cardiovascular: Negative for chest pain, palpitations, and edema, Respiratory: Negative for shortness of breath, cough, wheezing, and pleuritic chest pain, Abdomen/GI: Negative for abdominal pain, nausea, vomiting, diarrhea, and constipation, Back: Negative for injury and pain, : Negative for injury, bleeding, discharge, and swelling, MS/Extremity: Negative for injury and deformity, Skin: Negative for injury, rash, and discoloration, Neuro: Negative for headache, weakness, numbness, tingling, and seizure, Psych: Negative for depression, anxiety, suicide ideation, homicidal ideation, and hallucinations, Allergy/Immunology: Negative for hives, rash, and allergies, Endocrine: Negative for neck swelling, polydipsia, polyuria, polyphagia, and marked weight changes, Hematologic/Lymphatic: Negative for swollen nodes, abnormal bleeding, and unusual bruising. Exam: 02:41 Constitutional: This is a well developed, well nourished patient who is awake, alert, christina and in no acute distress. Head/Face: Normocephalic, atraumatic. Eyes: Pupils equal round and reactive to light, extra-ocular motions intact. Lids and lashes normal. Conjunctiva and sclera are non-icteric and not injected. Cornea within normal limits. Periorbital areas with no swelling, redness, or edema. ENT: Nares patent. No nasal discharge, no septal abnormalities noted. Tympanic membranes are normal and external auditory canals are clear. Oropharynx with no redness, swelling, or masses, exudates, or evidence of obstruction, uvula midline. Mucous membranes moist. Neck: Trachea midline, no thyromegaly or masses palpated, and no cervical lymphadenopathy. Supple, full range of motion without nuchal rigidity, or vertebral point tenderness. No Meningismus. Chest/axilla: Normal chest wall appearance and motion. Nontender with no deformity. No lesions are appreciated. Cardiovascular: Regular rate and rhythm with a normal S1 and S2. No gallops, murmurs, or rubs. Normal PMI, no JVD. No pulse deficits. Respiratory: Lungs have equal breath sounds bilaterally, clear to auscultation and percussion. No rales, rhonchi or wheezes noted. No increased work of breathing, no retractions or nasal flaring. Abdomen/GI: Soft, non-tender, with normal bowel sounds. No distension or tympany. No guarding or rebound. No evidence of tenderness throughout. Back: No spinal tenderness. No costovertebral tenderness. Full range of motion. Skin: Warm, dry with normal turgor. Normal color with no rashes, no lesions, and no evidence of cellulitis. MS/ Extremity: Pulses equal, no cyanosis. Neurovascular intact. Full, normal range of motion. Neuro: Awake and alert, GCS 15, oriented to person, place, time, and situation. Cranial nerves II-XII grossly intact. Motor strength 5/5 in all extremities. Sensory grossly intact. Cerebellar exam normal. Normal gait. Psych: Awake, alert, with orientation to person, place and time. Behavior, mood, and affect are within normal limits. 02:41 Musculoskeletal/extremity: ROM: Circulation is intact in all extremities. Sensation intact. Compartment Syndrome exam of affected extremity: is normal. DVT Exam: No signs of deep vein thrombosis. no pain, no swelling, no tenderness, negative Homans' sign noted on exam, no appreciated bluish discoloration, no erythema, no increased warmth. 03:34 ECG was reviewed by the Attending Physician. [facility] Vital Signs: 02:16 BP 128 / 66; Pulse 85; Resp 18 S; Temp 97.9(O); Pulse Ox 100% on R/A; Weight 106.59 kg as6 (R); Height 5 ft. 2 in. (157.48 cm) (R); Pain 5/10; 02:34 BP 159 / 98; Pulse 80; Resp 16 S; Pulse Ox 100% on R/A; Pain 5/10; ha1 03:44 Pulse 82; Resp 16; Pulse Ox 100% on R/A; kd3 05:16 BP 127 / 76; Pulse 78; Resp 17; Pulse Ox 100% on R/A; ll3 02:16 Body Mass Index 42.98 (106.59 kg, 157.48 cm) as6 MDM: 02:24 Patient medically screened. [facility] 02:44 Differential diagnosis: contusion, tendonitis. Data reviewed: vital signs, nurses [facility] notes, lab test result(s), EKG, radiologic studies, CT scan, plain films. Data interpreted: Pulse oximetry: is not applicable for this patient encounter. on room air is 100 %. Test interpretation: by ED physician or midlevel provider: ECG, plain radiologic studies. Counseling: I had a detailed discussion with the patient and/or guardian regarding: the historical points, exam findings, and any diagnostic results supporting the discharge/admit diagnosis, lab results, radiology results. 09/03 02:41 Order name: Basic Metabolic Panel; Complete Time: 04:35 [facility] 01/19 02:41 Order name: CBC with Diff; Complete Time: 03:50 [facility] 01/19 02:41 Order name: LFT's; Complete Time: 04:35 [facility] 01/19 02:41 Order name: Magnesium; Complete Time: 04:35 [facility] 01/19 02:41 Order name: NT PRO-BNP; Complete Time: 04:35 [facility] 01/19 02:41 Order name: PT-INR; Complete Time: 03:50 [facility] 01/19 02:41 Order name: Troponin HS; Complete Time: 04:35 [facility] 01/19 02:41 Order name: XRAY Chest (1 view) [facility] 01/19 02:41 Order name: EKG; Complete Time: 02:42 [facility] 01/19 04:36 Order name: Troponin High Sensitivity [facility] 01/19 02:41 Order name: Cardiac monitoring; Complete Time: 03:13 [facility] 01/19 02:41 Order name: EKG - Nurse/Tech; Complete Time: 03:13 [facility] 01/19 02:41 Order name: IV Saline Lock; Complete Time: 03:33 [facility] 01/19 02:41 Order name: Labs collected and sent; Complete Time: 03:33 [facility] 01/19 02:41 Order name: O2 Per Protocol; Complete Time: 03:12 [facility] 01/19 02:41 Order name: O2 Sat Monitoring; Complete Time: 03:12 [facility] EC:34 Rate is 75 beats/min. Rhythm is regular. QRS Lyman is Normal. IN interval is normal. QRS christina interval is normal. QT interval is normal. No Q waves. T waves are Normal. No ST changes noted. Clinical impression: NSR w/ Non-specific ST/T Changes and No evidence of ischemia. Interpreted by me. Reviewed by me. Administered Medications: 03:43 Drug: Ketorolac 15 mg Route: IVP; Site: right antecubital; kd3 05:34 Follow up: Response: No adverse reaction ha1 03:43 Drug: morphine 2 mg Route: IVP; Infused Over: 4 mins; Site: right antecubital; kd3 05:34 Follow up: Response: No adverse reaction; Marked relief of symptoms ha1 03:43 Drug: Zofran (Ondansetron) 4 mg Route: IVP; Site: right antecubital; kd3 05:34 Follow up: Response: No adverse reaction ha1 03:44 Drug: Aspirin Chewable Tablet 162 mg Route: PO; kd3 05:34 Follow up: Response: No adverse reaction ha1 Disposition Summary: 01/19/22 04:37 Discharge Ordered Location: Home christina Problem: new christina Symptoms: have improved christina Condition: Stable christina Diagnosis - Essential (primary) hypertension christina - Pain in left arm christina - Unspecified symptoms and signs involving the musculoskeletal system christina Followup: christina - With: Private Physician - When: 2 - 3 days - Reason: Recheck today's complaints, Continuance of care, Re-evaluation by your physician Followup: christina - With: Michael Corrales MD - When: 2 - 3 days - Reason: Recheck today's complaints, Continuance of care, Re-evaluation by your physician Discharge Instructions: - Discharge Summary Sheet chirstina - Hypertension, Adult christina - Musculoskeletal Pain christina - Hypertension, Adult, [id number] christina - How to Take Your Blood Pressure, [id number] christina - Aspirin and Your Heart christina - Managing Your Hypertension christina - Preventing Hypertension christina Forms: - Medication Reconciliation Form christina - Thank You Letter christina - Antibiotic Education christina - Prescription Opioid Use christina Prescriptions: - Tylenol-Codeine #3 300 mg-30 mg Oral - take 2 tablet by ORAL route every 6 hours; 20 tablet; Refills: 0, Product christina Selection Permitted Signatures: Dispatcher [employer] Fran Moody MD MD cha Slawson, Ashby, RN RN as6 Savana Price RN RN kd3 Korin Allred RN ha1
--- NOTE | 2022-01-19 04:38 | ER ---
Nurse's Notes [facility] Name: Grace Onofre Age: 66 yrs Sex: Female : 1955 Arrival Date: 01/19/2022 Time: 02:09 Bed 6 Private MD: Diagnosis: Essential (primary) hypertension;Pain in left arm;Unspecified symptoms and signs involving the musculoskeletal system Presentation: 01/19 02:16 Chief complaint: Patient states: "About an hour ago a sharp pain went down my arm". as6 Coronavirus screen: At this time, the client does not indicate any symptoms associated with coronavirus-19. Ebola Screen: No symptoms or risks identified at this time. Initial Sepsis Screen: Does the patient meet any 2 criteria? No. Patient's initial sepsis screen is negative. Does the patient have a suspected source of infection? No. Patient's initial sepsis screen is negative. Risk Assessment: Do you want to hurt yourself or someone else? Patient reports no desire to harm self or others. Onset of symptoms was January 19, 2022. 02:16 Method Of Arrival: Ambulatory as6 02:16 Acuity: PARKER 4 as6 Historical: - Allergies: 02:19 No Known Allergies; as6 - Home Meds: 02:19 finasteride 1 mg oral tab 1 tab once daily [Active]; spironolactone 50 mg Oral tab 1 as6 tab once daily [Active]; pregabalin 150 mg Oral cap 1 cap 2 times per day [Active]; - PMHx: 02:19 Hypertensive disorder; as6 - PSHx: 02:19 breast; Total abdominal hysterectomy; as6 - Immunization history:: Client reports receiving the 2nd dose of the Covid vaccine, pfizer. - Social history:: Smoking status: Patient denies any tobacco usage or history of. - Family history:: not pertinent. Screenin:17 Abuse screen: Denies threats or abuse. Denies injuries from another. Nutritional ll3 screening: No deficits noted. Tuberculosis screening: No symptoms or risk factors identified. Fall Risk None identified. Assessment: 02:29 General: Appears in no apparent distress. Behavior is calm, cooperative. Pain: ha1 Complains of pain in left arm Pain does not radiate. Pain at worst was 10 out of 10 on a pain scale. Quality of pain is described as stabbing, throbbing. Neuro: Level of Consciousness is awake, alert, obeys commands, Oriented to person, place, time, situation. Cardiovascular: Denies chest pain, shortness of breath, Heart tones S1 S2 present Capillary refill < 3 seconds Patient's skin is warm and dry. Respiratory: No deficits noted. Airway is patent Trachea midline Respiratory effort is even, unlabored, Respiratory pattern is regular, symmetrical, Breath sounds are clear bilaterally. GI: No signs and/or symptoms were reported involving the gastrointestinal system. Abdomen is non-distended, obese. : No signs and/or symptoms were reported regarding the genitourinary system. EENT: No signs and/or symptoms were reported regarding the EENT system. Derm: . pt. reports lymphedema on left leg. Vital Signs: 02:16 BP 128 / 66; Pulse 85; Resp 18 S; Temp 97.9(O); Pulse Ox 100% on R/A; Weight 106.59 kg as6 (R); Height 5 ft. 2 in. (157.48 cm) (R); Pain 5/10; 02:34 BP 159 / 98; Pulse 80; Resp 16 S; Pulse Ox 100% on R/A; Pain 5/10; ha1 03:44 Pulse 82; Resp 16; Pulse Ox 100% on R/A; kd3 05:16 BP 127 / 76; Pulse 78; Resp 17; Pulse Ox 100% on R/A; ll3 02:16 Body Mass Index 42.98 (106.59 kg, 157.48 cm) as6 ED Course: 02:09 Patient arrived in ED. bp1 02:19 Triage completed. as6 02:23 Arm band placed on. as6 02:24 Fran Todd MD is Attending Physician. christina 02:28 Korin Allred, ABI is Primary Nurse. ha1 03:14 Missed attempt(s): 20 gauge in right antecubital area. 22 gauge in left antecubital ll3 area. 03:30 No provider procedures requiring assistance completed. Inserted saline lock: 22 gauge ll3 in right forearm, using aseptic technique. Blood collected. 04:36 Michael Corrales MD is Referral Physician. christina 04:38 XRAY Chest (1 view) In Process Unspecified. EDMS 05:17 Patient has correct armband on for positive identification. Bed in low position. Call ll3 light in reach. Side rails up X 1. 05:34 IV discontinued, intact, bleeding controlled, No redness/swelling at site. Pressure ha1 dressing applied. Administered Medications: 03:43 Drug: Ketorolac 15 mg Route: IVP; Site: right antecubital; kd3 05:34 Follow up: Response: No adverse reaction ha1 03:43 Drug: morphine 2 mg Route: IVP; Infused Over: 4 mins; Site: right antecubital; kd3 05:34 Follow up: Response: No adverse reaction; Marked relief of symptoms ha1 03:43 Drug: Zofran (Ondansetron) 4 mg Route: IVP; Site: right antecubital; kd3 05:34 Follow up: Response: No adverse reaction ha1 03:44 Drug: Aspirin Chewable Tablet 162 mg Route: PO; kd3 05:34 Follow up: Response: No adverse reaction ha1 Medication: 05:18 VIS not applicable for this client. ll3 Outcome: 04:37 Discharge ordered by MD. vasquez 05:34 Discharged to home ambulatory. ha1 05:34 Condition: stable 05:34 Discharge instructions given to patient, Instructed on discharge instructions, follow up and referral plans. medication usage, Demonstrated understanding of instructions, follow-up care, medications, Prescriptions given X 1. 05:35 Patient left the ED. ha1 Signatures: Dispatcher [employer] EDFran Hale MD MD cha Paniauga, Brittany bp1 Slawson, Ashby, RN RN as6 Rudy Saunders RN RN ll3 Savana Price RN RN kd3 Korin Allred RN RN ha1
[2022-01-19 08:05] VITALS: TEMP 97.9; O2SAT 100
[2022-01-19 08:14] VITALS: BP 127/76
--- NOTE | 2022-01-19 08:34 | RAD REPORT ---
EXAM DESCRIPTION: RAD - Chest Single View - 01/19/2022 4:37 am CLINICAL HISTORY: CHEST PAIN COMPARISON: Chest Pa And Lat (2 Views) dated 05/06/2018; CHEST PA AND LAT 2 VIEW dated 04/07/2009; C HEST PA AND LAT 2 VIEW dated 12/18/2004 FINDINGS: Lines: None. Lungs: Decreased lung volumes with increased prominence of the pulmonary interstitium. Pleural: No significant pleural effusions or pneumothorax. Cardiac: Cardiomegaly. Mediastinum: Within normal limits. Bones: No acute fractures. Other: Surgical clips in the right axilla. IMPRESSION: Nonspecific increased interstitial markings that may reflect edema and/or pneumonia.
--- NOTE | 2022-01-19 09:19 | EKG ---
Test Date: 2022-01-19 Test Time: 03:09:30 Rubber Tile Floor Layer: MONTY MEASUREMENT RESULTS: Intervals: Rate: 75 TX: 146 QRSD: 84 QT: 382 QTc: 426 [place]: P: 58 TX: 146 QRS: 0 T: 16 INTERPRETIVE STATEMENTS: Normal sinus rhythm Possible Anterior infarct, age undetermined Abnormal ECG Compared to ECG 05/04/2018 15:02:39 Myocardial infarct finding now present Sinus tachycardia no longer present Electronically Signed On 01-19-22 09:18:28 CDT by Michael Corrales
== END 2022-01-19 05:35 | disposition home or self-care (01) ==
LOC: ER 02:04
DX: M79.602 Pain in left arm (principal); R29.91 Unspecified symptoms and signs involving the musculoskeletal system; I10 Essential (primary) hypertension
CPT/HCPCS: 93005; 85025; 80048; 36415; 83735; 85610; 80076; 84484 ×2; 83880; 71045; 96375; 96374; 99284; J2270; J2405

== ENCOUNTER 2022-05-12 18:30 | Observation (INO) | payer OTHER ==
--- OUTSIDE RECORDS SUMMARY | 2022-05-12 18:34 | XMS REPORT | Clinical Summary ---
:1955 Author Organization [facility] MD [facility] Address [address] [place] [address] Care Team Providers Name Role Phone Lul Tang MD Unavailable Katiana Ramirez RD Unavailable Unavailable Zeny Parr MD Primary Care Provider Allergies No known active allergies Medications Medication Sig Dispensed Refills Start Date End Date Status cholecalciferol, Take 1,000 0 Ac tive vitamin D3, 1,000 Units by units tablet mouth daily. cyanocobalamin Take 50 mcg 0 Act ting (VITAMIN B-12) 50 by mouth mcg tablet daily. multivitamin Take 1 0 Active (THERAGRAN) tablet tablet by mouth daily. pregabalin (LYRICA) Take 150 mg 0 Active 150 mg capsule by mouth twice daily. aspirin 81 mg EC Take 81 mg 0 Ac tive tablet by mouth. spironolactone TAKE ONE 0 11/03/2021 Acti ve (ALDACTONE) 50 mg (1) tablet TABLET(S) BY MOUTH ONCE A DAY. propranolol (INDERAL daily. 1 07/23/2017 01/19/20 2 Discontinued LA) 60 mg 24 hr 2 capsule amLODIPine (NORVASC) daily. 1 07/23/2017 01/19/20 2 Discontinued 10 mg tablet 2 finasteride TAKE ONE 0 09/14/2021 Discont inued (Not (PROSCAR) 1 mg (1) 2 Appli cable) tablet TABLET(S) BY MOUTH ONCE A DAY. Active Problems Problem Noted Date Triple-negative breast [...] Encounters Date Type Specialty Care Team Description 03/25/2022 Office Visit Dermatology Vilma Reaves, Loss of scalp hair; Itching of lesi on of skin; Pain of skin; Hypertrophic brian rgical scar; Postmenopausal androgenetic alopecia; Infiltrating du ct carcinoma, NOS of upper-outer quadrant of breast <Female; Right> 03/25/2022 Travel 01/18/2022 Consult Dermatology Vilma Reaves, Postmenopausa l androgenetic alopecia (Primary Dx); Loss of scalp h air; Itching of lesi on of skin; Pain of skin; Hypertrophic brian rgical scar 01/18/2022 Travel 12/25/2021 Orders Only Breast Surgical Rena Bai Loss of sc alp hair Oncology Susanna Pathak (Primary Dx) 12/07/2021 Office Visit Breast Surgical Rena Bia Cancer of right female Oncology Susanna Pathak, breast, not ot herwise specified 12/07/2021 Ancillary Radiology Yasmany Peraza, Cancer of righ t female Procedure PA breast, not oth erwise specified 12/07/2021 Orders Only Oncology Daren, Triple-negative breast Judi, CIGAR HEAD HOLER cancer <Female> (Primary Dx) 12/07/2021 Orders Only Thoracic Medicine Zeny Parr MD Triple-ne gative breast cancer <Female> (Primary Dx) 12/07/2021 Travel after 05/12/2021 Immunizations Name Administration Dates Next Due Influenza, [...] Tobacco Use Types Packs/Day Years Used Date Smoking Tobacco: Never Smokeless Tobacco: Never Alcohol Use Standard Drinks/Week Comments No 0 (1 standard drink = 0.6 oz pure alcoho l) Sex Assigned at Date Recorded Not on file Job Start Date Occupation Industry Not on file Not on file Not on file Obstetrics History Para Term AB IAB SAB Ectopic Multiple Living Live Births 3 2 Date Outcome GA Total Labor/2nd/3rd Weight Sex Delivery Anes PTL Nilam A 1 A5 Name Clin Labor Para Para Last Filed Vital Signs Vital Sign Reading Time Taken Comments Blood Pressure 121/81 03/25/2022 1:35 PM NURSING INFORMATION SYSTEMS COORDINATOR Pulse 84 03/25/2022 1:35 PM NURSING INFORMATION SYSTEMS COORDINATOR Temperature 36.8 C (98.2 F) 03/25/2022 1:35 PM NURSING INFORMATION SYSTEMS COORDINATOR Respiratory Rate 18 03/25/2022 1:35 PM NURSING INFORMATION SYSTEMS COORDINATOR Oxygen Saturation - - Inhaled Oxygen Concentration - - Weight 109.4 kg (241 lb 2.9 oz) 03/25/2022 1:35 PM NURSING INFORMATION SYSTEMS COORDINATOR Height - - Body Mass Index 44.38 05/08/2018 11:00 AM NURSING INFORMATION SYSTEMS COORDINATOR Plan of Treatment Date Type Specialty Care Team Description 05/24/2022 Follow-Up Dermatology Vilma Reaves M D [address] [place], [place] [address] (Wo rk) 06/10/2022 Follow-Up Oncology Judi Mercedes FNP [address] [facility] [address] [place], [place] [address] (Wo rk) 12/06/2022 Lab Lab Zeny Parr MD [address] [place], [place] [address] (Wo rk) 12/06/2022 Ancillary Procedure Radiology Zeny Parr M D [address] [place], [place] [address] (Wo rk) 12/06/2022 Follow-Up Oncology Zeny Parr MD [address] [place], [place] [address] (Wo rk) Health Maintenance Due Date Last Done Comments COVID-19 Vaccination (3 - Booster for 09/26/2020 08/01/2020 , 07/11/2020 Pfizer series) Procedures Procedure Name Priority Date/Time Associated Comments Diagnosis MAMMO DIGITAL Routine 12/07/2021 9:53 AM Cancer of right Resul ts for this DIAGNOSTIC BILATERAL CDT female breast, not p rocedure are in W NAGI otherwise specified the resu lts section. after 05/12/2021 Results Mammography Digital Diagnostic Bilateral with Nagi [...] at an outside location on 04/02/2017, at [facility] on 02/11/2018, and at [facility] on 04/28/2018, 12/01/2018, 12/14/2019 and 11/24/2020. FINDINGS: [...] at an outside location on 04/02/2017, at [facility] on 02/11/2018, and at [facility] on 04/28/2018, 12/01/2018, 12/14/2019 and 11/24/2020. FINDINGS: [...] BI-RADS Category 2: Benign Finding(s) Yasmany PERALTA IMG MAMMOGRAPHY ORDERABLES after 05/12/2021 Insurance Payer Benefit Plan Subscriber ID Effective Phone Address Typ e / Group Dates MEDICARE MEDICARE PART [id number] 2020-Prese [phone] [place] Medicare A AND B nt [address] [employer] [place] [phone] [employer] MANAGED AETNA HMO [id number] 2020-Pres [address] HMO CARE ent [id number] [place] [address] Grace Onofre Personal/Family Self 1955 [address] (Home) [place] [address] Grace Onofre Personal/Family Self 1955 [address] (Home) [place] [address] 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 [place], [place] [id number] Zeny Parr MD PCP - General Medical Oncology 03/11/[address] [place] [id number] Clinical Dietitian Nutrition 07/13/[address] [place] [id number]
--- OUTSIDE RECORDS SUMMARY | 2022-05-12 18:38 | XMS REPORT | Continuity of Care Document ---
:1955 Author Organization [facility] t Address [address] [place] [address] Care Team Providers Name Role Phone [phone] Primary Care Physician Unavailable Akil Cheney MD Attending Clinician AKIL CHENEY Attending Clinician Unavailable Gaviota Bai MD Attending Clinician [phone] Yasmany Mccall Attending Clinician Theresa Parr MD Attending Clinician Judi Padilla Attending Clinician Josiah Jiménez Attending Clinician GAVIOTA BAI Attending Clinician Unavailable YASMANY BOONE Attending Clinician Unavailable Gaviota Bai Attending Clinician TU, THERESA SANDERS Attending Clinician Unavailable Gaviota Bai Admitting Clinician [phone] TU, THERESA SANDERS Admitting Clinician Unavailable Payers Payer Name Policy Type Policy Number Effective Date Expiration Date S ource Problems Condition Condition Condition Status Onset Resolution [...] Lump in Disease Active Univers right right 6-14 ity of breast breast 00:00: [place] 00 MD Domingo valverde [facility] Mammograph Mammograph Disease Active U nivers y abnormal y abnormal - it y of 00:00: [place] 00 MD [facility] Essential Essential Problem 2018-12-01 Memoria (primary) (primary) 12:56:29 l hypertensi hypertensi Domingo ann on on 12/01/2018 [facility] Unspecifie Unspecifi Problem 2018-12-01 Memoria d ed 12:56:29 l osteoarthr osteoarthr He ann itis, itis, unspecifie unspecifie d site d site 12/01/2018 [facility] 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) (current) Herm obinna drug drug therapy therapy 12/01/2018 [facility] Hypertensi Hypertens Problem Active 2021-11-10 Memoria ve ting 03:52:14 l disorder, disorder, Herm obinna systemic systemic arterial arterial (disorder) (disorder) Active Problem 11/10/2021 [facility], OPID [place], [facility] Insomnia Insomnia Problem Active 2021-11-10 Memoria (disorder) (disorder) 03:52:14 l Active [place] Problem 11/10/2021 [facility], OPID [place], [facility] Lumbosacra Lumbosacr Problem Active 2021-11-10 Memoria l plexus al plexus 03:52:14 l neuropathy neuropathy He rmann (disorder) (disorder) Active Problem 11/10/2021 [facility], OPID [place],[facility] Lymphedema Lymphedem Problem Active 2021-11-10 Memoria (disorder) a 03:52:14 l (disorder) Manolo n Active Problem 11/10/2021 [facility] [place],[facility] Malignant Malignant Problem Active 2021-11-10 Memoria tumor of tumor of 03:52:14 l breast breast Omer (disorder) (disorder) Active Problem 11/10/2021 [facility] OPID [place],[facility] Peripheral Periphera Problem Active 2021-11-10 Memoria nerve l nerve 03:52:14 l disease disease Omer (disorder) (disorder) Active Problem 11/10/2021 [facility] [place],[facility] Simple Simple Problem Active 2021-11-10 Geo michael obesity obesity 03:52:14 l (disorder) (disorder) He rmann Active Problem 11/10/2021 [facility] OPID [place],[facility] History of Past Illness Condition Condition Condition Status Onset Resolution Last Treating Co mments Source Name Details Category Date Date Treatment Clinician Date Encounter Encounter Problem 2018-12-02 2018-12-02 Memoria for other for other 2-05 11:32:56 11:32:56 l administra administra 05:54: He rmobinna tive tive 41 examinatio examinatio ns ns 06/23/201812/02/201 9 MH OPID [place] Malignant Malignant Problem 2018-12-01 2018-12-01 Memoria neoplasm neoplasm 1-04 12:56:29 12:56:29 l of of 05:05: Omer unspecifie unspecifie 59 d site of d site of right right female female breast breast 05/22/2018 12/01/2018 MH OPID [place],[facility] Allergies, Adverse Reactions, Alerts This patient has no known allergies or adverse reactions. Family History Family Member Diagnosis Comments Start Date Stop Date Source Natural brother Prostate cancer [facility] Natural brother Diabetes [facility] Natural father Hypertension [facility] Maternal [facility] Natural mother [facility]pertension [facility] Natural sister [facility] Family member Breast cancer [facility] Family member Ovarian cancer [facility] Family member Pancreatic cancer Univ ersity [facility] Social History Social Habit Start Date Stop Date Quantity Comments Source Exposure to 2022-01-08 2022-01-18 [facility] 14[facility]07[facility]00 [place] MD Ivan son (event) [facility] [place] Social History 2018-05-13 2018-05-13 [facility] nino 17:57:45 17:57:45 Alcohol intake 2017-11-18 2017-11-[address] [facility] es 00:00:00 00:00:00 non-drinker of Medical Ce nter alcohol (finding) Tobacco use and 2017-11-17 2017-11-[address] [facility] kes exposure 00:00:00 00:00:00 [facility] Sex Assigned At [address] [facility] k[facility] 00:00:00 00:00:00 [facility] Smoking Status Start Date Stop Date Source Never smoked tobacco [facility] Medications Ordered Filled Start Stop Current Ordering Indication Dosage Frequency Signature Comments Components Source Medication Medication Date Date Medication? Clinician (SIG) Name Name cholecalcif 2021-05 Yes 1000U Take 1,000 Univers ghassan, 1-07 Units by ity of vitamin D3, 13:34: mouth [place] 1,000 units 51 [facility] cyanocobala 2021-05 Yes 50ug Take 50 Uni vers min 1-07 mcg by ity of (VITAMIN 13:34: mouth [place] B-12) 50 51 daily. [facility] 2021-05 Yes 1{tbl} Take 1 Un nate n 1-07 tablet by ity of (THERAGRAN) 13:34: mouth [place] tablet 51 daily. MD Domingo valverde [facility] pregabalin 2021-05 Yes 150mg Take 150 Un nate (LYRICA) 1-07 mg by ity of 150 mg 13:34: mouth [place] capsule 51 twice [facility]. [facility] aspirin 81 2021-05 Yes 81mg Take 81 mg U nivers mg EC 1-07 by mouth. ity of tablet 13:34: [place] 51 [facility] cholecalcif Yes 1000U Take 1,000 Univers ghassan, 9-02 Units by ity of vitamin D3, 14:19: mouth [place] 1,000 units 07 daily. MD hartman [facility] cyanocobala Yes 50ug Take 50 Uni vers min 02 mcg by ity of (VITAMIN 14:19: mouth [place] B-12) 50 07 daily. mcg tablet [facility] multivitami Yes 1{tbl} Take 1 Un nate n 01-18 tablet by ity of (THERAGRAN) 14:19: mouth [place] tablet 07 daily. [facility] pregabalin Yes 150mg Take 150 Un nate (LYRICA) 02 mg by ity of 150 mg 14:19: mouth [place] capsule 07 twice MD daily. [facility] aspirin 81 Yes 81mg Take 81 mg U nivers mg EC 01-18 by mouth. ity of tablet 14:19: [place] 07 [facility] spironolact Yes TAKE ONE Un nate one 6-18 (1) ity of (ALDACTONE) 00:00: TABLET(S) [place] 50 mg 00 BY MOUTH tablet ONCE A . [facility] spironolact Yes TAKE ONE Un nate one 6-18 (1) ity of (ALDACTONE) 00:00: TABLET(S) [place] 50 mg 00 BY MOUTH tablet ONCE A . [facility] finasteride Yes TAKE ONE Un nate (PROSCAR) 1 09-14 (1) ity of mg tablet 00:00: TABLET(S) [place] 00 BY MOUTH ONCE A . [facility] finasteride 2021- No TAKE ONE U nivers (PROSCAR) 05 22- 11-07 (1) ity of mg tablet 00:00: 00:00 [place] :00 BY MOUTH ONCE A . [facility] pregabalin Yes 100 mg = 1 [...] 2017-05 No Notes: Do M emoria en 2- not exceed l 16:55: 4 gm/day. [place] 00 (Same as: Tylenol) acetaminoph 2017-05 No Notes: Do M emoria en-codeine 2- not exceed l #3 16:55: 4gm/day of acetaminop hen. (Same as: Tylenol with Codeine # 3) Acetaminoph 2017-05 No Notes: Do M emoria en 2- not exceed l 16:55: 4 gm/day. [place] 00 (Same as: Tylenol) acetaminoph 2017-05 No Notes: Do M emoria en-codeine 2-27 not exceed l #3 16:55: 4gm/day of acetaminop hen. (Same as: Tylenol with Codeine # 3) Acetaminoph 2017-05 No Notes: Do M emoria en 2-27 not exceed l 16:55: 4 gm/day. [place] 00 (Same as: Tylenol) Meperidine 2017-05 No Notes: Memor ia 2- (Same as: l 16:45: Demerol) "Use Precaution [...] Hydromorpho 2017-05 No Notes: Geo michael ne 2- Same as: l 16:45: Dilaudid Morphine 2017-05 No 2 mg, 1 Memori a 2-27 mL, Route: l 16:45: IVP, Drug form: SOLN, Q5Min, Dosing Weight 78.892, kg, PRN Pain Score 4-6, Start date: 05/14/18 10:45:00 MATERIAL LOADER, Duration: 5 doses or times, Stop date: Limited # of times Labetalol 2017-05 No Notes: Memori a 2-27 (Same as: l 16:45: Normodyne, Trandate) Push over 2 minutes Give bolus over 2-3 minutes. Calcium 2017-05 No 1,000 mL, Memor ia Chloride 2-27 Rate: 125 l 0.0014 16:45: ml/hr, Omer MEQ/ML / 00 Infuse Potassium over: 8 Chloride hr, Route: 0.004 IV, Dosing MEQ/ML / Weight Sodium 78.892 kg, Chloride Total 0.103 Volume: MEQ/ML / 1,000, Sodium Start Lactate date: 0.028 05/14/18 MEQ/ML 10:45:00 Injectable MATERIAL LOADER, Solution Duration: 30 day, Stop date: 06/13/18 10:44:00 MATERIAL LOADER, 1.87, m2 Meperidine 2017-05 No Notes: Memor [...] Pain Score 4-6, Start date: 05/14/18 10:45:00 MATERIAL LOADER, Duration: 5 doses or times, Stop date: Limited # of times Labetalol 2017-05 No Notes: Memori a 2-27 (Same as: l 16:45: Normodyne, Trandate) Push over 2 minutes Give bolus over 2-3 minutes. Calcium 2018 No 1,000 mL, Memor ia Chloride 2-27 Rate: 125 l 0.0014 16:45: ml/hr, MEQ/ML / 00 Infuse Potassium over: 8 Chloride hr, Route: 0.004 IV, Dosing MEQ/ML / Weight Sodium 78.892 kg, Chloride Total 0.103 Volume: MEQ/ML / 1,000, Sodium Start Lactate date: 0.028 05/14/18 MEQ/ML 10:45:00 Injectable MATERIAL LOADER, Solution Duration: 30 day, Stop date: 06/13/18 10:44:00 MATERIAL LOADER, 1.87, m2 Meperidine 2017-05 No Notes: Memor [...] Pain Score 4-6, Start date: 05/14/18 10:45:00 MATERIAL LOADER, Duration: 5 doses or times, Stop date: Limited # of times Labetalol 2017-05 No Notes: Memori a 2-27 (Same as: l 16:45: Normodyne, Trandate) Push over 2 minutes Give bolus over 2-3 minutes. Calcium 2017-05 No 1,000 mL, Memor ia Chloride 2-27 Rate: 125 l 0.0014 16:45: ml/hr, MEQ/ML / 00 Infuse Potassium over: 8 Chloride hr, Route: 0.004 IV, Dosing MEQ/ML / Weight Sodium 78.892 kg, Chloride Total 0.103 Volume: MEQ/ML / 1,000, Sodium Start Lactate date: 0.028 05/14/18 MEQ/ML 10:45:00 Injectable MATERIAL LOADER, Solution Duration: 30 day, Stop date: 06/13/18 10:44:00 MATERIAL LOADER, 1.87, m2 ondansetron 2017-05 No Route: IV, Memoria (ANES) 2- Drug form: l 16:34: INJ, ONCE, Stop date: 05/14/18 10:34:00 MATERIAL LOADER ondansetron 2017-05 No Route: IV, Memoria (ANES) 07-15 Drug form: l 16:34: INJ, ONCE, Stop date: 05/14/18 10:34:00 MATERIAL LOADER ondansetron 2017-05 No Route: IV, Memoria (ANES) 07-15 Drug form: l 16:34: INJ, ONCE, Stop date: 05/14/18 10:34:00 MATERIAL LOADER phenylephri 2017-05 No Route: IV, Memoria ne (ANES) 07-15 Drug form: l 15:14: INJ, ONCE, Stop date: 05/14/18 9:14:00 MATERIAL LOADER phenylephri 2017-05 No Route: IV, Memoria ne (ANES) 07-15 Drug form: l 15:14: INJ, ONCE, Stop date: 05/14/18 9:14:00 MATERIAL LOADER phenylephri 2017-05 No Route: IV, Memoria ne (ANES) 07-15 Drug form: l 15:14: INJ, ONCE, Stop date: 05/14/18 9:14:00 MATERIAL LOADER metoclopram 2017-05 No Route: IV, Memoria benoit (ANES) 07-15 Drug form: l 15:09: INJ, ONCE, Stop date: 05/14/18 9:09:00 MATERIAL LOADER ceFAZolin 2017-05 No Route: IV, Me moria (ANES) 07-15 Drug form: l 15:09: INJ, ONCE, Stop date: 05/14/18 9:09:00 MATERIAL LOADER fentaNYL 2017- No Route: IV, Mem oria (ANES) 07-15 Drug form: l 15:09: INJ, ONCE, Stop date: 05/14/18 9:09:00 MATERIAL LOADER propofol 2017-05 No Route: IV, Mem oria (ANES) 07-15 Drug form: l 15:09: INJ, ONCE, Stop date: 05/14/18 9:09:00 MATERIAL LOADER lidocaine 2017- No Route: IV, Me moria (ANES) 07-15 Drug form: l 15:09: INJ, ONCE, Stop date: 05/14/18 9:09:00 MATERIAL LOADER metoclopram 2017-05 No Route: IV, Memoria benoit (ANES) 07-15 Drug form: l 15:09: INJ, ONCE, Stop date: 05/14/18 9:09:00 MATERIAL LOADER ceFAZolin 2017-05 No Route: IV, Me moria (ANES) 07-15 Drug form: l 15:09: INJ, ONCE, Stop date: 05/14/18 9:09:00 MATERIAL LOADER fentaNYL 2017-05 No Route: IV, Mem oria (ANES) 07-15 Drug form: l 15:09: INJ, ONCE, Stop date: 05/14/18 9:09:00 MATERIAL LOADER propofol 2017-05 No Route: IV, Mem oria (ANES) 07-15 Drug form: l 15:09: INJ, ONCE, Stop date: 05/14/18 9:09:00 MATERIAL LOADER lidocaine 2017-05 No Route: IV, Me moria (ANES) 07-15 Drug form: l 15:09: INJ, ONCE, Stop date: 05/14/18 9:09:00 MATERIAL LOADER metoclopram 2017-05 No Route: IV, Memoria benoit (ANES) 07-15 Drug form: l 15:09: INJ, ONCE, Stop date: 05/14/18 9:09:00 MATERIAL LOADER ceFAZolin 2017-05 No Route: IV, Me moria (ANES) 07-15 Drug form: l 15:09: INJ, ONCE, Stop date: 05/14/18 9:09:00 MATERIAL LOADER fentaNYL 2017-05 No Route: IV, Mem oria (ANES) 07-15 Drug form: l 15:09: INJ, ONCE, Stop date: 05/14/18 9:09:00 MATERIAL LOADER propofol 2017-05 No Route: IV, Mem oria (ANES) 07-15 Drug form: l 15:09: INJ, ONCE, Stop date: 05/14/18 9:09:00 MATERIAL LOADER lidocaine 2017-05 No Route: IV, Me moria (ANES) 07-15 Drug form: l 15:09: INJ, ONCE, Stop date: 05/14/18 9:09:00 MATERIAL LOADER midazolam 2017-05 No Route: IV, Me moria (ANES) 07-15 Drug form: l 15:04: SOLN, [place] 00 ONCE, Stop date: 05/14/18 9:04:00 MATERIAL LOADER diphenhydrA 2017-05 No Route: IV, Memoria MINE (ANES) 07-15 Drug form: l 15:04: INJ, ONCE, [place] Stop date: 05/14/18 9:04:00 MATERIAL LOADER dexamethaso 2017-05 No Route: IV, Memoria ne (ANES) 07-15 Drug form: l 15:04: INJ, ONCE, [place] 00 Stop date: 05/14/18 9:04:00 MATERIAL LOADER midazolam 2017-05 No Route: IV, Me moria (ANES) 07-15 Drug form: l 15:04: SOLN, [place] 00 ONCE, Stop date: 05/14/18 9:04:00 MATERIAL LOADER diphenhydrA 2017-05 No Route: IV, Memoria MINE (ANES) 07-15 Drug form: l 15:04: INJ, ONCE, [place] 00 Stop date: 05/14/18 9:04:00 MATERIAL LOADER dexamethaso 2017-05 No Route: IV, Memoria ne (ANES) 07-15 Drug form: l 15:04: INJ, ONCE, [place] 00 Stop date: 05/14/18 9:04:00 MATERIAL LOADER midazolam 2017-05 No Route: IV, Me moria (ANES) 07-15 Drug form: l 15:04: SOLN, [place] 00 ONCE, Stop date: 05/14/18 9:04:00 MATERIAL LOADER diphenhydrA 2017-05 No Route: IV, Memoria MINE (ANES) 07-15 Drug form: l 15:04: INJ, ONCE, [place] 00 Stop date: 05/14/18 9:04:00 MATERIAL LOADER dexamethaso 2017-05 No Route: IV, Memoria ne (ANES) 07-15 Drug form: l 15:04: INJ, ONCE, O[place] 00 Stop date: 05/14/18 9:04:00 MATERIAL LOADER Lactated 2017-05 No Route: IV, Mem oria Ringers 07-15 Total l Injection 13:53: Volume: Merissa nn IV (ANES) 00 1,000, 1000 mL Start date: 05/14/18 7:53:00 MATERIAL LOADER, Stop date: 05/14/18 8:53:00 MATERIAL LOADER Lactated 2018-1 No Route: IV, Mem oria Ringers 2-27 Total l Injection 13:53: Volume: Merissa nn IV (ANES) 00 1,000, 1000 mL Start date: 05/14/18 7:53:00 MATERIAL LOADER, Stop date: 05/14/18 8:53:00 MATERIAL LOADER Lactated 2018-1 No Route: IV, Mem oria Ringers 2-27 Total l Injection 13:53: Volume: Merissa nn IV (ANES) 00 1,000, 1000 mL Start date: 05/14/18 7:53:00 MATERIAL LOADER, Stop date: 05/14/18 8:53:00 MATERIAL LOADER Famotidine 2018- No 20 mg, 1 Mem oria 20 MG Oral 2-27 tab, l Tablet 13:00: Route: PO, Merissa nn [Pepcid] 00 Drug form: TAB, PRE OP, Dosing Weight 79.091, kg, Start date: 05/14/18 7:00:00 MATERIAL LOADER, Duration: 30 day, Stop date: 06/13/18 6:59:00 MATERIAL LOADER Celebrex 2018-1 No 200 mg, Memori a 2-27 Route: PO, l 13:00: Drug form: Omer Wade CAP ONCALL, Dosing Weight 79.091, kg, Start date: 05/14/18 7:00:00 MATERIAL LOADER, Duration: 30 day, Stop date: 06/13/18 6:59:00 MATERIAL LOADER Famotidine 2018- No 20 mg, Memor ia 2-27 Route: l 13:00: IVPOmer 00 ONCALL, Dosing Weight 79.091, kg, Start date: 05/14/18 7:00:00 MATERIAL LOADER, Duration: 1 doses or times Famotidine 2018- No 20 mg, 1 Mem oria 20 MG Oral 2-27 tab, l Tablet 13:00: Route: PO, Merissa nn [Pepcid] 00 Drug form: TAB, PRE OP, Dosing Weight 79.091, kg, Start date: 05/14/18 7:00:00 MATERIAL LOADER, Duration: 30 day, Stop date: 06/13/18 6:59:00 MATERIAL LOADER Celebrex 2018-1 No 200 mg, Memori a 2-27 Route: PO, l 13:00: Drug form: O[place] 00 BRAULIO VALVERDE, Dosing Weight 79.091, kg, Start date: 05/14/18 7:00:00 MATERIAL LOADER, Duration: 30 day, Stop date: 06/13/18 6:59:00 MATERIAL LOADER Famotidine 2017- No 20 mg, Memor ia 07-15 Route: l 13:00: IVP, ONCALL, Dosing Weight 79.091, kg, Start date: 05/14/18 7:00:00 MATERIAL LOADER, Duration: 1 doses or times Famotidine 2017- No 20 mg, 1 Mem oria 20 MG Oral 2-27 tab, l Tablet 13:00: Route: PO, Merissa nn [Pepcid] Drug form: TAB, PRE OP, Dosing Weight 79.091, kg, Start date: 05/14/18 7:00:00 MATERIAL LOADER, Duration: 30 day, Stop date: 06/13/18 6:59:00 MATERIAL LOADER Celebrex 2017- No 200 mg, Memori a 2 Route: PO, l 13:00: Drug form: O[place] 00 BRAULIO VALVERDE, Dosing Weight 79.091, kg, Start date: 05/14/18 7:00:00 MATERIAL LOADER, Duration: 30 day, Stop date: 06/13/18 6:59:00 MATERIAL LOADER Famotidine 2017- No 20 mg, Memor ia 07-15 Route: l 13:00: IVP, ONCALL, Dosing Weight 79.091, kg, Start date: 05/14/18 7:00:00 MATERIAL LOADER, Duration: 1 doses or times Acetaminoph 2017- No 1,000 mg, M emoria en 07-15 Route: PO, l 12:17: ONCE, Dosing Weight 79.091, kg, PRN Pain Score 1-3, Start date: 05/14/18 6:17:00 MATERIAL LOADER Calcium 2018- No 1,000 mL, Memor ia Chloride 07-15 Rate: 25 l 0.0014 12:17: ml/hr, [place] MEQ/ML / 00 Infuse Potassium over: 40 Chloride hr, Route: 0.004 IV, Dosing MEQ/ML / Weight Sodium 79.091 kg, Chloride Total 0.103 Volume: MEQ/ML / 1,000, Sodium Start Lactate date: 0.028 12/27/18 MEQ/ML 6:17:00 Injectable MATERIAL LOADER, Solution Duration: 30 day, Stop date: 06/13/18 6:16:00 MATERIAL LOADER, 1.88, m2 Acetaminoph 2017-05 No 1,000 mg, M emoria en 07-15 Route: PO, l 12:17: ONCE, Dosing Weight 79.091, kg, PRN Pain Score 1-3, Start date: 05/14/18 6:17:00 MATERIAL LOADER Calcium 2017-05 No 1,000 mL, Memor ia Chloride 2 Rate: 25 l 0.0014 12:17: ml/hr, [place] MEQ/ML / 00 Infuse Potassium over: 40 Chloride hr, Route: 0.004 IV, Dosing MEQ/ML / Weight Sodium 79.091 kg, Chloride Total 0.103 Volume: MEQ/ML / 1,000, Sodium Start Lactate date: 0.028 05/14/18 MEQ/ML 6:17:00 Injectable MATERIAL LOADER, Solution Duration: 30 day, Stop date: 06/13/18 6:16:00 MATERIAL LOADER, 1.88, m2 Acetaminoph 2017-05 No 1,000 mg, M emoria en 07-15 Route: PO, l 12:17: ONCE, Dosing Weight 79.091, kg, PRN Pain Score 1-3, Start date: 05/14/18 6:17:00 MATERIAL LOADER Calcium 2017-05 No 1,000 mL, Memor ia Chloride 07-15 Rate: 25 l 0.0014 12:17: ml/hr, [place] MEQ/ML / 00 Infuse Potassium over: 40 Chloride hr, Route: 0.004 IV, Dosing MEQ/ML / Weight Sodium 79.091 kg, Chloride Total 0.103 Volume: MEQ/ML / 1,000, Sodium Start Lactate date: 0.028 05/14/18 MEQ/ML 6:17:00 Injectable MATERIAL LOADER, Solution Duration: 30 day, Stop date: 06/13/18 6:16:00 MATERIAL LOADER, 1.88, m2 pregabalin 2017-05 No 150 mg [...] emoria 2-12 Daily, 0 l 14:44: Refill(s) aspirin 81 Yes 81mg QD Take [address] [facility] EC 11-18 by [facility] tablet 16:17: daily. [address] amLODIPine 2018-0 Yes 10mg QD Take [address] (NORVASC) 7-03 by mouth [facility] 10 MG 16:17: daily. Medical tablet [address] [place] [address] propranolol 2018-0 Yes 60mg QD Take [address] (INDERAL) 7-03 by mouth [facility] 60 MG 16:17: daily. Medical tablet [address] [place] [address] topiramate 2018-0 Yes 50mg Q.5D Take [address] (TOPAMAX) 7-03 by mouth 2 [facility] 50 MG 16:17: (two) Medical tablet 01 times [place] daily. cholecalcif 2018-0 Yes 1000U QD Take 1,[address] [facility] ghassan, 7-03 Units by [facility] vitamin D3, 16:17: mouth Medic al (VITAMIN daily. [place] D3) 1,000 unit capsule cyanocobala 2017-0 Yes 1000ug QD Take 1,[address] min 7-03 mcg by [facility] (VITAMIN 16:17: mouth Medical B-12) 1000 01 daily. [facility] tablet aspirin 81 Yes 81mg QD Take [address] MG EC 7-03 by mouth [facility] tablet 16:17: daily. [address] amLODIPine 0 Yes 10mg QD Take [address] (NORVASC) 7-03 by mouth [facility] 10 MG 16:17: daily. Medical tablet [address] [place] [address] propranolol 0 Yes 60mg QD Take [address] (INDERAL) 7-03 by mouth [facility] 60 MG 16:17: daily. Medical tablet [address] [place] [address] topiramate 2018-0 Yes 50mg Q.5D Take [address] (TOPAMAX) 7-03 by mouth 2 [facility] 50 MG 16:17: (two) Medical tablet times [place] daily. cholecalcif 2018-0 Yes 1000U QD Take 1,[address] ghassan, 7-03 Units by [facility] vitamin D3, 16:17: mouth Medic al (VITAMIN 01 daily. [place] D3) 1,000 unit capsule cyanocobala 2018-0 Yes 1000ug QD Take 1,[address] min 7-03 mcg by [facility] (VITAMIN 16:17: mouth Medical B-12) 1000 01 daily. [place] MCG tablet propranolol 2021- No daily. Uni vers (INDERAL 3-01-18 ity of [place]) 60 mg 00:00: 00:00 [place] 24 hr 00 :00 capsule [facility] amLODIPine 2021- No daily. [facility] [place] ers ([facility]) 07-23 ity of 10 mg 00:00: 00:00 [place] tablet 00 :00 MD [facility] propranolol 2021- No daily. Uni vers (INDERAL 07-23 [place]y of [place]) 60 mg 00:00: 00:00 [place] 24 hr 00 :00 capsule [facility] amLODIPine 2021- No daily. [facility] [place] ers ([facility]) 07-23 ity of 10 mg 00:00: 00:00 [place] tablet 00 :00 MD Domingo valverde [facility] Immunizations Ordered Filled Immunization Date Status Comments [facility] e Immunization Name Name Influenza, 2018-02-18 Completed [facility]00 [facility] Influenza, 2018-02-18 Completed [facility] 00[facility]00:00 [facility] Vital Signs Vital Name Observation Time Observation Value Comments Source Systolic blood 2022-03-25 19:35:58 121 mm[Hg] Univer sity of pressure [facility] Diastolic blood 2022-03-25 19:35:58 81 mm[Hg] Unive rsity of pressure [facility] Heart rate 2022-03-25 19:35:58 84 /min [facility] Body temperature 2022-03-25 19:35:58 36.78 [facility] [place] [facility] Respiratory rate 2022-03-25 19:35:58 18 /min [facility] Body weight 2022-03-25 19:35:58 109.4 kg [facility] BMI 2022-03-25 19:35:58 44.38 kg/m2 [facility] Systolic blood 2022-01-18 19:13:21 115 mm[Hg] Univer sity of pressure [facility] Diastolic blood 2022-01-18 19:13:21 73 mm[Hg] Unive rsity of pressure [facility] Heart rate 2022-01-18 19:13:21 77 /min [facility] Body temperature 2022-01-18 19:13:21 36.89 [facility] MD [facility] Respiratory rate 2022-01-18 19:13:21 18 /min [facility] Body weight 2022-01-18 19:13:21 107.4 kg [facility] BMI 2022-01-18 19:13:21 43.57 kg/m2 [facility] Systolic (mm Hg) 2021-11-07 18:33:00 Geo rial [place] Diastolic (mm Hg) 2021-11-07 18:33:00 Mem orial [place] Heart Rate 2021-11-07 18:33:00 [facility] [place] Respitory Rate 2021-11-07 18:33:00 Memori al [place] Height 2021-11-07 18:33:00 154.94 cm [facility] Weight 2021-11-07 18:33:00 [facility] BMI Calculated 2021-11-07 18:33:00 [facility] Systolic (mm Hg) 2021-02-06 15:36:00 [facility] Diastolic (mm Hg) 2021-02-06 15:36:00 [facility] [place] Heart Rate 2021-02-06 15:36:00 [facility] Respitory Rate 2021-02-06 15:36:00 [facility] [place] Height 2021-02-06 15:36:00 154.94 cm [facility] Weight 2021-02-06 15:36:00 [facility] BMI Calculated 2021-02-06 15:36:00 [facility] Height 2020-05-05 21:30:00 157.48 cm [facility] Weight 2020-05-05 21:30:00 [facility] BMI Calculated 2020-05-05 21:30:00 [facility] Systolic (mm Hg) 2020-05-05 21:30:00 [facility] Diastolic (mm Hg) 2020-05-05 21:30:00 [facility] [place] Heart Rate 2020-05-05 21:30:00 [facility] Respitory Rate 2020-05-05 21:30:00 [facility] Systolic (mm Hg) 2019-06-23 17:48:00 [facility] [place] Diastolic (mm Hg) 2019-06-23 17:48:00 [facility] Heart Rate 2019-06-23 17:48:00 [facility] Respitory Rate 2019-06-23 17:48:00 [facility] [place] Height 2019-06-23 17:48:00 154.94 cm [facility] Weight 2019-06-23 17:48:00 [facility] BMI Calculated 2019-06-23 17:48:00 [facility] Systolic (mm Hg) 2019-03-25 17:47:00 [facility] Diastolic (mm Hg) 2019-03-25 17:47:00 [facility] [place] Heart Rate 2019-03-25 17:47:00 [facility] Height 2019-03-25 17:47:00 152.4 cm [facility] Weight 2019-03-25 17:47:00 [facility] BMI Calculated 2019-03-25 17:47:00 [facility] Systolic (mm Hg) 2018-12-31 19:32:00 [facility] [place] Diastolic (mm Hg) 2018-12-31 19:32:00 [facility] Heart Rate 2018-12-31 19:32:00 [facility] Respitory Rate 2018-12-31 19:32:00 [facility] Height 2018-12-31 19:32:00 152.4 cm [facility] Weight 2018-12-31 19:32:00 [facility] BMI Calculated 2018-12-31 19:32:00 [facility] [place] Weight 2018-11-25 18:27:00 [facility] BMI Calculated 2018-11-25 18:27:00 [facility] Height 2018-11-25 18:27:00 152.4 cm [facility] Heart Rate 2018-11-25 18:27:00 [facility] Systolic (mm Hg) 2018-11-25 18:27:00 [facility] Diastolic (mm Hg) 2018-11-25 18:27:00 [facility] Respitory Rate 2018-11-25 18:27:00 [facility] BMI Calculated 2018-09-02 18:17:00 [facility] [place] Weight 2018-09-02 18:17:00 [facility] Height 2018-09-02 18:17:00 154.94 cm [facility] Heart Rate 2018-09-02 18:17:00 [facility] Respitory Rate 2018-09-02 18:17:00 [facility] Systolic (mm Hg) 2018-09-02 18:17:00 [facility] [place] Diastolic (mm Hg) 2018-09-02 18:17:00 [facility] [place] Systolic (mm Hg) 2018-06-18 16:21:00 [facility] Diastolic (mm Hg) 2018-06-18 16:21:00 [facility] Heart Rate 2018-06-18 16:21:00 [facility] Respitory Rate 2018-06-18 16:21:00 [facility] Height 2018-06-18 16:21:00 149.86 cm [facility] Weight 2018-06-18 16:21:00 [facility] BMI Calculated 2018-06-18 16:21:00 [facility] BMI Calculated 2018-05-26 21:28:00 [facility] [place] Height 2018-05-26 21:28:00 152.4 cm [facility] Weight 2018-05-26 21:28:00 [facility] Systolic (mm Hg) 2018-05-26 21:28:00 [facility] [place] Diastolic (mm Hg) 2018-05-26 21:28:00 [facility] Respitory Rate 2018-05-26 21:28:00 [facility] Heart Rate 2018-05-26 21:28:00 [facility] Systolic (mm Hg) 2018-05-14 18:30:00 [facility] [place] Diastolic (mm Hg) 2018-05-14 18:30:00 [facility] Respitory Rate 2018-05-14 18:30:00 [facility] [place] Systolic (mm Hg) 2018-05-14 18:00:00 [facility] Diastolic (mm Hg) 2018-05-14 18:00:00 [facility] [place] Respitory Rate 2018-05-14 18:00:00 [facility] [place] Respitory Rate 2018-05-14 17:45:00 [facility] [place] Systolic (mm Hg) 2018-05-14 17:45:00 [facility] [place] Diastolic (mm Hg) 2018-05-14 17:45:00 [facility] Heart Rate 2018-05-14 12:30:00 [facility] Weight 2018-05-14 12:08:00 [facility] BMI Calculated 2018-05-14 12:08:00 [facility] [place] Height 2018-05-13 16:45:00 154.94 cm [facility] BMI Calculated 2018-04-29 14:42:00 [facility] [place] Height 2018-04-29 14:42:00 152.4 cm [facility] Weight 2018-04-29 14:42:00 [facility] Heart Rate 2018-04-29 14:42:00 [facility] Systolic (mm Hg) 2018-04-29 14:42:00 [facility] [place] Diastolic (mm Hg) 2018-04-29 14:42:00 [facility] Procedures Procedure Date / Time Performing Clinician Source Performed MAMMO DIGITAL 2021-12-07 14:53:00 [facility] Y[place] [facility] [place] DIAGNOSTIC BILATERAL W MD [facility] Plan of Care Planned Activity Planned Date Details Comments Source Future Scheduled 2022-03-27 COVID-19 Vaccination [facility] [place] Test 07:38:55 (3 - Booster for MD Perez [facility] Pfizer series) [code Center = COVID-19 Vaccination (3 - Booster for Pfizer series)] Future Scheduled 2022-01-18 COVID-19 Vaccination [facility] [place] Test 14:53:08 (3 - Booster for MD [facility] Pfizer series) [code Center = COVID-19 Vaccination (3 - Booster for Pfizer series)] Encounters Start End Encounter Admission Attending Care Care Encounter Source Date/Time Date/Time Type Type Clinicians Facility Department ID 2022-11-07 2022-11-07 Outpatient ELE MARLOW [id number] [facility] 14:30:00 14:30:00 14 tolu Tello 2022-11-07 2022-11-07 Outpatient ELE MARLOW [id number] [facility] 14:30:00 14:30:00 14 tolu Tello 2022-03-25 2022-03-25 Tanya Cheney 1.2.840.1 [id number] [facility] 13:40:00 14:16:41 Visit Akil 86087.1.1 ity of 3.412.2.7 [place] .3.838493 MD [facility] 2022-03-25 2022-03-25 Outpatient KENYA CHENEY MDA [facility] [id number] 13:29:45 14:16:41 AKIL [facility] 2022-03-25 2022-03-25 Travel 1.2.840.1 1.2.657.000 [id number] Univers 00:00:00 00:00:00 25531.1.1 350.1.13.41 ity of 3[place]412.2.[place] 084.8 MD [facility] 2022-01-18 2022-01-18 Consult KENYA Cheney, 1.2.840.1 [id number] Univers 14:00:00 15:08:55 Akil 46678.1.1 ity of 3.412.2.7 [place] .3.709785 MD [facility] 2022-01-18 2022-01-18 Consult Jean Paul, 1.2.840.1 [id number] Univers 14:00:00 15:08:55 Akil 59780.1.1 ity of 3.412.2.7 [place] .3.407512 MD [facility] 2022-01-18 2022-01-18 Travel 1.2.840.1 1.2.451.542 [id number] Univers 00:00:00 00:00:00 93399.1.1 350.1.13.41 ity of 3.412.2.[place].698 [place] .[place].432[place] 084.8 MD [facility] 2022-01-18 2022-01-18 Travel 1.2.840.1 1.2.716.055 [id number] Univers 00:00:00 00:00:00 69158.1.1 350.1.13.41 ity of 3.412.2.[place].698 [place]3.3529[place] 08Deangelo.8 MD Sanchez8 [facility] 2021-12-25 2021-12-25 Orders Refinetti, 1.2.840.1 [id number] [facility] 00:00:00 00:00:00 Only Gaviota Mullins 93421.1.1 it y of [place] 3.412.2.7 [place] .3.075032 MD Sanchez8 [facility] 2021-12-25 2021-12-25 Orders Refinetti, 1.2.840.1 [id number] Univers 00:00:00 00:00:00 Only Gaviota Mullins 14838.1.1 it y of [place] 3.412.2.7 [place] .3.980778 MD Sanchez8 [facility] 2021-12-07 2021-12-07 Office Refinetti, 1.2.840.1 [id number] Univers 13:30:00 13:30:00 Visit Gaviota Mullins 96114.1.1 it y of [place] 3.412.2.7 [place] .3.759151 MD Sanchez8 [facility] 2021-12-07 2021-12-07 Office EL Refinetti, 1.2.840.1 [id number] Univers 13:30:00 13:30:00 Visit Gaviota Mullins 26858.1.1 it y of [place] 3.412.2.7 [place] .3.930950 MD [facility] 2021-12-07 2021-12-07 Ancillary Stu, 1.2.840.1 [id number] Univers 09:15:00 10:15:00 Procedure Yasmany 69787.1.1 it y of 3.412.2.7 [place] .3.493525 MD [facility] 2021-12-07 2021-12-07 Ancillary EL Stu, 1.2.840.1 [id number] Univers 09:15:00 10:15:00 Juanita Jade 36633.1.1 it y of 3.412.2.7 [place] .3.036363 MD [facility] 2021-12-07 2021-12-07 Travel 1.2.840.1 1.2.998.860 [id number] Univers 00:00:00 00:00:00 57508.1.1 350.1.13.41 ity of 3.412.2.[place]3.698 [place]3.3525[place] 084.8 MD [facility] 2021-12-07 2021-12-07 Theresa Cardenas 1.2.840.1 [id number] Univers 00:00:00 00:00:00 Only 79007.1.1 ity of 3.412.2.7 [place] .3.688316 MD [facility] 2021-12-07 2021-12-07 Travel 1.2.840.1 1.2.777.715 [id number] [facility] 00:00:00 00:00:00 21144.1.1 350.1.13.41 [place]y of 3.412.2.[place].3.698 [place].9522[place] 084.8 MD [facility] 2021-12-07 2021-12-07 Orders Daren, 1.2.840.1 [id number] Univers 00:00:00 00:00:00 Only Judi 06010.1.1 ity of 3.412.2.7 [place] .3.960762 MD [facility] 2021-12-07 2021-12-07 Orders Daren, 1.2.840.1 [id number] Univers 00:00:00 00:00:00 Only Judi 79728.1.1 ity of 3.412.2.7 [place] .3.165543 MD [facility] 2021-12-07 2021-12-07 Theresa Cardenas 1.2.840.1 [id number] Univers 00:00:00 00:00:00 Only 53827.1.1 ity of 3.412.2.7 [place] .3.637638 .8 Domingo valverde [facility] 2021-11-07 2021-11-08 Outpatient nullFlavo MNA [id number] [facility] 18:15:00 04:59:59 r Neurology 13 l Harleen Mccallann 2021-11-07 2021-11-08 Outpatient nullFlavo MNA [id number] [facility] 18:15:00 04:59:59 r Neurology 13 l Harleen Mccallann 2021-11-07 2021-11-07 Outpatient NATASHA JiménezMISCHER MHMISCHER [id number] 13:15:00 23:59:59 Josiah 13 Lai 2021-11-07 2021-11-07 Outpatient MHIE MHIE [id number] [facility] 13:15:00 13:15:00 13 tolu Omer 2021-02-06 2021-02-07 Outpatient nullFlavo MNA [id number] [facility] 15:15:00 04:59:59 r Neurology 12 l Harleen Tello 2021-02-06 2021-02-07 Outpatient nullFlavo MNA [id number] [facility] 15:15:00 04:59:59 r Neurology 12 l Harleen Tello 2021-02-06 2021-02-06 Outpatient NATASHA JiménezMISCHER MISCHER [id number] 10:15:00 23:59:59 Josiah 12 Lai 2021-02-06 2021-02-06 Outpatient MHIE MHIE [id number] [facility] 10:15:00 10:15:00 12 tolu Omer 2020-12-08 2020-12-08 Outpatient KENYA BAI MDA MDA [id number] 11:03:18 11:45:16 GAVIOTA valverde 2020-11-24 2020-11-24 Outpatient KENYA BOONE MDA MDA [id number] 10:41:14 10:41:14 YASMANY valverde 2020-05-05 2020-05-06 Outpatient nullFlavo MNA [id number] [facility] 21:15:00 05:59:59 r Neurology 11 l Harleen Tello 2020-05-05 2020-05-06 Outpatient nullFlavo MNA [id number] [facility] 21:15:00 05:59:59 r Neurology 11 l Harleen Tello 2020-05-05 2020-05-05 [id number] 15:15:00 23:59:59 Josiah 11 Lai 2020-05-05 2020-05-05 Outpatient MHIE IE [id number] [facility]oria 15:15:00 15:15:00 11 l Omer 2020-01-10 2020-01-12 Outside nullFlavo MNA [id number] [facility] 17:42:23 04:59:59 Medical r Neurology 02 l Records Harleen [place] 2020-01-10 2020-01-12 Outside nullFlavo MNA [id number] [facility] 17:42:23 04:59:59 Medical r Neurology 02 l Records Harleen [place] 2020-01-10 2020-01-11 Outpatient [facility] [id number] 12:42:23 23:59:59 02 2019-10-20 2019-10-20 Ambulatory nullFlavo MNA [id number] [facility] 18:15:00 18:15:00 Pre-Reg r Neurology 10 l Harleen Tello 2019-10-20 2019-10-20 Ambulatory nullFlavo MNA [id number] [facility] 18:15:00 18:15:00 Pre-Reg r Neurology 10 l Harleen [place] 2019-10-20 2019-10-20 Outpatient MHIE IE [id number] [facility]oria 13:15:00 13:15:00 10 tolu [place] 2019-10-20 2019-10-20 Outpatient Tino [facility] [id number] 13:15:00 13:15:00 Josiah 10 Lai 2019-06-23 2019-06-24 Outpatient nullFlavo MNA [id number] [facility] 17:30:00 05:59:59 r Neurology 09 l Harleen Tello 2019-06-23 2019-06-24 Outpatient nullFlavo MNA [id number] [facility] 17:30:00 05:59:59 r Neurology 09 l Harleen Tello 2019-06-23 2019-06-23 [id number] 11:30:00 23:59:59 Josiah Gerardo Hoyt 2019-06-23 2019-06-23 Outpatient MHIE MHIE [id number] [facility] 11:30:00 11:30:00 09 tolu Tello 2019-03-25 2019-03-26 Outpatient nullFlavo MNA [id number] [facility] 17:30:00 05:59:59 r Neurology 08 tolu Tello 2019-03-25 2019-03-26 Outpatient nullFlavo MNA [id number] [facility] 17:30:00 05:59:59 r Neurology 08 tolu Tello 2019-03-25 2019-03-25 [id number] 11:30:00 23:59:59 Josiah Mariela Hoyt 2019-03-25 2019-03-25 Outpatient MHIE MHIE [id number] [facility]oria 11:30:00 11:30:00 08 tolu [place] 2018-12-31 2019-01-01 Outpatient nullFlavo MNA [id number] Mem[facility] 21:00:00 04:59:59 r Neurology 07 tolu Tello 2018-12-31 2019-01-01 Outpatient nullFlavo MNA [id number] [facility] 21:00:00 04:59:59 r Neurology 07 tolu Tello 2018-12-31 2018-12-31 [facility] [id number] 16:00:00 23:59:59 Josiah Bryce Hoyt 2018-12-31 2018-12-31 Outpatient MHIE IE [id number] Memoria 16:00:00 16:00:00 07 tolu Tello 2018-11-25 2018-11-26 Outpatient nullFlavo MNA [id number] [facility]oria 18:30:00 04:59:59 r Neurology 06 tolu Tello 2018-11-25 2018-11-26 Outpatient nullFlavo MNA [id number] Memoria 18:30:00 04:59:59 r Neurology 06 tolu Tello 2018-11-25 2018-11-25 Out[id number] 13:30:00 23:59:59 Josiah Jed Hoyt 2018-11-25 2018-11-25 Outpatient MHIE MHIE [id number] Memoria 13:30:00 13:30:00 06 tolu Tello 2018-09-02 2018-09-03 Outpatient nullFlavo MNA [id number] [facility] 18:15:00 04:59:59 r Neurology 05 tolu Tello 2018-09-02 2018-09-03 Outpatient nullFlavo MNA [id number] Mem[facility] 18:15:00 04:59:59 r Neurology 05 tolu Breckenridge [place] 2018-09-02 2018-09-02 Outpatient [facility] [id number] 13:15:00 23:59:59 Josiah 05 Lai 2018-09-02 2018-09-02 Outpatient MHIE MHIE [id number] Memoria 13:15:00 13:15:00 05 tolu [place] 2018-07-14 2018-07-14 Outpatient MHIE MHIE [id number] [facility]oria 13:45:00 13:45:00 02 tolu Omer 2018-07-14 2018-07-14 Outpatient MHIE MHIE [id number] [facility]oria 13:45:00 13:45:00 02 tolu [place] 2018-07-01 2018-07-01 Outpatient MHIE MHIE [id number] [facility] 11:30:00 11:30:00 04 tolu [place] 2018-07-01 2018-07-01 Outpatient MHIE MHIE [id number] [facility] 11:30:00 11:30:00 04 tolu Omer 2018-06-18 2018-06-19 Outpatient nullFlavo MNA [id number] [facility] 16:00:00 05:59:59 r Neurology 03 l Breckenridge Omer 2018-06-18 2018-06-19 Outpatient nullFlavo MNA [id number] [facility] 16:00:00 05:59:59 r Neurology 03 l [place] Omer 2018-06-17 2018-06-19 Phone nullFlavo MNA [id number] Memoria 19:26:00 05:59:59 Message r Neurology 00 l [place] Omer 2018-06-17 2018-06-19 Phone nullFlavo MNA [id number] [facility]oria 19:26:00 05:59:59 Message r Neurology 00 l [place] Omer 2018-06-18 2018-06-18 [facility] [id number] 10:00:00 23:59:59 Josiah Luna Hoyt 2018-06-17 2018-06-18 Outpatient MHMISCHER MHMISCHER [id number] 13:26:00 23:59:59 00 2018-06-18 2018-06-18 Outpatient MHIE MHIE [id number] [facility]oria 10:00:00 10:00:00 03 l [place] 2018-05-26 2018-05-27 Outpatient nullFlavo MNA [id number] Memoria 21:15:00 05:59:59 r Neurology 01 l [place] 2018-05-26 2018-05-27 Outpatient nullFlavo MNA [id number] Memoria 21:15:00 05:59:59 r Neurology 01 l Harleen Oemr 2018-05-26 2018-05-26 [id number] 15:15:00 23:59:59 Josiah Lai 2018-05-26 2018-05-26 Outpatient MHIE MHIE [id number] [facility]oria 15:15:00 15:15:00 01 l [place] 2018-05-14 2018-05-15 Outpt Diag nullFlavo [facility] [id number] Memoria 14:59:00 05:59:00 Services r Outpatient 01 l Imaging Omer Immaculata 2018-05-14 2018-05-15 Outpt Diag nullFlavo [facility] [id number] Memoria 14:59:00 05:59:00 Services r Outpatient 01 l [facility] Immaculata 2018-05-14 2018-05-14 Outpatient Refinetti, MH29 MH29 [id number] 08:59:00 23:59:00 MoniqueSusanna [place] 2018-05-14 2018-05-14 Day nullFlavo [facility] [id number] [facility]oria 12:10:58 18:48:00 Surgery r [place] 00 l Immaculata Merissa 2018-05-14 2018-05-14 Day nullFlavo [facility] [id number] [facility] 12:10:58 18:48:00 Surgery r [facility]mer 00 l Immaculata Merissa 2018-05-14 2018-05-14 Outpatient Refinetti, MHSL MHSL [id number] 06:10:58 12:48:00 Moniqueirena [place] 2018-05-13 2018-05-14 Outpt Diag nullFlavo [facility] [id number] Memoria 15:07:00 05:59:00 Services r Outpatient 00 l [facility] Immaculata 2018-05-13 2018-05-14 Outpt Diag nullFlavo [facility] [id number] Memoria 15:07:00 05:59:00 Services r Outpatient 00 l Imaging [place] Immaculata 2018-05-13 2018-05-13 Outpatient Bhumika, 29 [facility] [id number] 09:07:00 23:59:00 Monique 00 Lawson 2018-04-29 2018-04-30 Outpatient nullFlavo SDA [id number] Memoria 14:00:00 05:59:59 r Neurology 00 l Harleen Tello 2018-04-29 2018-04-30 Outpatient nullFlavo MNA [id number] [facility] 14:00:00 05:59:59 r Neurology 00 l Harleen Tello 2018-04-29 2018-04-29 [facility] [id number] 08:00:00 23:59:59 Josiah 00 Lai 2018-04-29 2018-04-29 Outpatient [facility] [id number] Memoria 08:00:00 08:00:00 00 l Omer Results Test Description Test Time Test Comments Results Result Comments Source ANEMIA STUDY 2018-06-15 20:01:00 Test Item Value Reference Range Interpretation Comme nts Vitamin B12 Lvl (test code = Vitamin B12 Lvl) no gt 200-1100 [facility] [id number] 20:01:00 Test Item Value Reference Range Interpretation Comments VITAMIN B1 (THIAMINE) WHOLE BLOOD (test 98 78-185 code = VITAMIN B1 (THIAMINE) WHOLE BLOOD) [id number] 20:01:00 Test Item Value Reference Range Interpretation Comments KENNY Ser Interp (test code = KENNY SEE COMMENT Ser Interp) [facility] [id number] 20:01:00 Test Item Value Reference Range Interpretation Comments Vitamin B12 Lvl (test code = Vitamin no gt 200-1100 B12 Lvl) [facility] [id number] 20:01:00 Test Item Value Reference Range Interpretation Comments VITAMIN B1 (THIAMINE) WHOLE BLOOD (test 98 78-185 code = VITAMIN B1 (THIAMINE) WHOLE BLOOD) [id number] 20:01:00 Test Item Value Reference Range Interpretation Comments KENNY Ser Interp (test code = KENNY SEE COMMENT Ser Interp) [facility] [place] [facility]2019-01-28 20:01:00 Test Item Value Reference Range Interpretation Comments Vitamin B12 Lvl (test code = Vitamin no gt 200-1100 B12 Lvl) [facility]2019-01-28 20:01:00 Test Item Value Reference Range Interpretation Comments VITAMIN B1 (THIAMINE) WHOLE BLOOD (test 98 78-185 code = VITAMIN B1 (THIAMINE) WHOLE BLOOD) [id number] 20:01:00 Test Item Value Reference Range Interpretation Comments KENNY Ser Interp (test code = KENNY SEE COMMENT Ser Interp) [facility]2018-12-26 18:10:00 Test Item Value Reference Range Interpretation Comments eGFR (test code = eGFR) 69 [facility]2018-12-26 18:10:00 Test Item Value Reference Range Interpretation Comments Albumin Lvl (test code = Albumin Lvl) 3.5 3.5-5.0 [facility]2018-12-26 18:10:00 Test Item Value Reference Range Interpretation Comments AST (test code = AST) 19 See_Comment [Auto mated message] The system which ge nerated this result transmit belia reference range : <=37. The reference range was not used to interpr et this result as leidy l/abnormal. [facility]2018-12-26 18:10:00 Test Item Value Reference Range Interpretation Comments ALT (test code = ALT) 19 See_Comment [Auto mated message] The system which ge nerated this result transmit belia reference range : <=65. The reference range was not used to interpr et this result as leidy l/abnormal. [facility]2018-12-26 18:10:00 Test Item Value Reference Range Interpretation Comments Alk Phos (test code = Alk Phos) 34 39-136 [facility]2018-12-26 18:10:00 Test Item Value Reference Range Interpretation Comments Bili Total (test code = Bili Total) 0.8 0.2-1.3 [facility]2018-12-26 18:10:00 Test Item Value Reference Range Interpretation Comments Glucose Lvl (test code = Glucose Lvl) 93 70-99 [facility]2018-12-26 18:10:00 Test Item Value Reference Range Interpretation Comments Total Protein (test code = Total 7.5 6.4-8.4 Protein) [facility]2018-12-26 18:10:00 Test Item Value Reference Range Interpretation Comments Calcium Lvl (test code = Calcium Lvl) 10.0 8.5-10.5 [facility]2018-12-26 18:10:00 Test Item Value Reference Range Interpretation Comments CO2 (test code = CO2) 25 24-32 [facility]2018-12-26 18:10:00 Test Item Value Reference Range Interpretation Comments Chloride Lvl (test code = Chloride Lvl) 105 95-109 [facility]2018-12-26 18:10:00 Test Item Value Reference Range Interpretation Comments Potassium Lvl (test code = Potassium 3.5 3.5-5.1 Lvl) [facility]2018-12-26 18:10:00 Test Item Value Reference Range Interpretation Comments Creatinine Lvl (test code = Creatinine 1.01 0.50-1.40 Lvl) [facility]2018-12-26 18:10:00 Test Item Value Reference Range Interpretation Comments Sodium Lvl (test code = Sodium Lvl) 140 135-145 [facility]2018-12-26 18:10:00 Test Item Value Reference Range Interpretation Comments BUN (test code = BUN) 34 7-22 [facility]2018-12-26 18:10:00 Test Item Value Reference Range Interpretation Comments B/C Ratio (test code = B/C Ratio) 34 1 6-25 [facility]2018-12-26 18:10:00 Test Item Value Reference Range Interpretation Comments AGAP (test code = AGAP) 13.5 10.0-20.0 [facility]2018-12-26 18:10:00 Test Item Value Reference Range Interpretation Comments A/G Ratio (test code = A/G Ratio) 0.9 1 0.7-1.6 [place] 110138-12-26 18:10:00 Test Item Value Reference Range Interpretation Comments Globulin (test code = Globulin) 4.0 2.7-4.2 [facility] HospitalEwgyppaASFRSMCJDD6386-30-28 18:10:00 Test Item Value Reference Range Interpretation Comments Platelet (test code = Platelet) 195 133-450 [facility] HospitalKxjqbfuIAHDTGYQMH3429-76-29 18:10:00 Test Item Value Reference Range Interpretation Comments MPV (test code = MPV) 8.5 7.4-10.4 [facility] H[id number] 18:10:00 Test Item Value Reference Range Interpretation Comments RDW (test code = RDW) 15.2 11.5-14.5 [facility] HospitalGllabmmSEAZNELIXE8587-67-48 18:10:00 Test Item Value Reference Range Interpretation Comments Hct (test code = Hct) 35.1 36.0-48.0 [facility] HospitalJblfffjCXBNNKRBHV9019-07-27 18:10:00 Test Item Value Reference Range Interpretation Comments MCH (test code = MCH) 30.2 pg 27.0-31.0 [facility] HospitalWzwnzbpXTJNDTOFPD3542-48-05 18:10:00 Test Item Value Reference Range Interpretation Comments MCV (test code = MCV) 93.7 80.0-98.0 [facility] H[id number] 18:10:00 Test Item Value Reference Range Interpretation Comments MCHC (test code = MCHC) 32.2 32.0-36.0 [facility] HospitalEnaxrduQSEOWCWPKX0073-29-09 18:10:00 Test Item Value Reference Range Interpretation Comments Hgb (test code = Hgb) 11.3 12.0-16.0 [facility] HospitalCwxlqhhVYYAWCFXCR6723-01-58 18:10:00 Test Item Value Reference Range Interpretation Comments RBC (test code = RBC) 3.75 4.20-5.40 [facility] H[id number] 18:10:00 Test Item Value Reference Range Interpretation Comments WBC (test code = WBC) 5.4 3.7-10.4 [place] [id number] 18:10:00 Test Item Value Reference Range Interpretation Comments Basophils (test code = 0.8 See_Comment [Aut omated message] The Basophils) system which ge nerated this result tra nsmitted reference range : <=1.0. The reference r payam was not used to int erpret this result as normal/abnormal . [facility] Hos[id number] 18:10:00 Test Item Value Reference Range Interpretation Comments Eosinophils # (test code 0.1 See_Comment [A utomated message] The = Eosinophils #) system whic h generated this result tra nsmitted reference range : <=0.5. The reference r payam was not used to int erpret this result as normal/abnormal . [facility] H[id number] 18:10:00 Test Item Value Reference Range Interpretation Comments Monocytes # (test code 0.5 See_Comment [Aut omated message] The = Monocytes #) system which generated this result tra nsmitted reference range : <=0.8. The reference r payam was not used to int erpret this result as normal/abnormal . [facility] Hospit[id number] 18:10:00 Test Item Value Reference Range Interpretation Comments Eosinophils (test code = 2.2 See_Comment [A utomated message] The Eosinophils) system which ge nerated this result tra nsmitted reference range : <=4.0. The reference r payam was not used to int erpret this result as normal/abnormal . [facility] Hospit[id number] 18:10:00 Test Item Value Reference Range Interpretation Comments Monocytes (test code = Monocytes) 9.7 2.0-12.0 [facility] Hos[id number] 18:10:00 Test Item Value Reference Range Interpretation Comments Lymphocytes # (test code = Lymphocytes 1.4 1.0-5.5 #) [facility] Hospit[id number] 18:10:00 Test Item Value Reference Range Interpretation Comments Neutrophils # (test code = Neutrophils 3.4 1.5-8.1 #) [facility] H[id number] 18:10:00 Test Item Value Reference Range Interpretation Comments Segs (test code = Segs) 61.7 45.0-75.0 [facility] Hospit[id number] 18:10:00 Test Item Value Reference Range Interpretation Comments Lymphocytes (test code = Lymphocytes) 25.6 20.0-40.0 [facility]2018-12-26 18:10:00 Test Item Value Reference Range Interpretation Comments eGFR (test code = eGFR) 69 [facility]2018-12-26 18:10:00 Test Item Value Reference Range Interpretation Comments Albumin Lvl (test code = Albumin Lvl) 3.5 3.5-5.0 [facility]2018-12-26 18:10:00 Test Item Value Reference Range Interpretation Comments AST (test code = AST) 19 See_Comment [Auto mated message] The system which ge nerated this result transmit belia reference range : <=37. The reference range was not used to interpr et this result as leidy l/abnormal. [place] 110138-12-26 18:10:00 Test Item Value Reference Range Interpretation Comments ALT (test code = ALT) 19 See_Comment [Auto mated message] The system which ge nerated this result transmit belia reference range : <=65. The reference range was not used to interpr et this result as leidy l/abnormal. [place] 110138-12-26 18:10:00 Test Item Value Reference Range Interpretation Comments Alk Phos (test code = Alk Phos) 34 39-136 [facility]2018-12-26 18:10:00 Test Item Value Reference Range Interpretation Comments Bili Total (test code = Bili Total) 0.8 0.2-1.3 [place] 110138-12-26 18:10:00 Test Item Value Reference Range Interpretation Comments Glucose Lvl (test code = Glucose Lvl) 93 70-99 [place] 110138-12-26 18:10:00 Test Item Value Reference Range Interpretation Comments Total Protein (test code = Total 7.5 6.4-8.4 Protein) [facility]2018-12-26 18:10:00 Test Item Value Reference Range Interpretation Comments Calcium Lvl (test code = Calcium Lvl) 10.0 8.5-10.5 [facility]2018-12-26 18:10:00 Test Item Value Reference Range Interpretation Comments CO2 (test code = CO2) 25 24-32 [place] 110138-12-26 18:10:00 Test Item Value Reference Range Interpretation Comments Chloride Lvl (test code = Chloride Lvl) 105 95-109 [place] 110138-12-26 18:10:00 Test Item Value Reference Range Interpretation Comments Potassium Lvl (test code = Potassium 3.5 3.5-5.1 Lvl) [facility]2018-12-26 18:10:00 Test Item Value Reference Range Interpretation Comments Creatinine Lvl (test code = Creatinine 1.01 0.50-1.40 Lvl) [facility]2018-12-26 18:10:00 Test Item Value Reference Range Interpretation Comments Sodium Lvl (test code = Sodium Lvl) 140 135-145 [facility]2018-12-26 18:10:00 Test Item Value Reference Range Interpretation Comments BUN (test code = BUN) 34 7-22 [facility]2018-12-26 18:10:00 Test Item Value Reference Range Interpretation Comments B/C Ratio (test code = B/C Ratio) 34 1 6-25 [place] 110138-12-26 18:10:00 Test Item Value Reference Range Interpretation Comments AGAP (test code = AGAP) 13.5 10.0-20.0 [facility]2018-12-26 18:10:00 Test Item Value Reference Range Interpretation Comments A/G Ratio (test code = A/G Ratio) 0.9 1 0.7-1.6 [place] 110138-12-26 18:10:00 Test Item Value Reference Range Interpretation Comments Globulin (test code = Globulin) 4.0 2.7-4.2 [place] 383728-12-26 18:10:00 Test Item Value Reference Range Interpretation Comments Platelet (test code = Platelet) 195 133-450 [facility] HospitalImaxdcmDCGGOJXYOR7594-92-74 18:10:00 Test Item Value Reference Range Interpretation Comments MPV (test code = MPV) 8.5 7.4-10.4 [place] 383728-12-26 18:10:00 Test Item Value Reference Range Interpretation Comments RDW (test code = RDW) 15.2 11.5-14.5 [place] 383728-12-26 18:10:00 Test Item Value Reference Range Interpretation Comments Hct (test code = Hct) 35.1 36.0-48.0 [place] 383728-12-26 18:10:00 Test Item Value Reference Range Interpretation Comments MCH (test code = MCH) 30.2 pg 27.0-31.0 [facility] Hospit[id number] 18:10:00 Test Item Value Reference Range Interpretation Comments MCV (test code = MCV) 93.7 80.0-98.0 [facility] HospitalTqtzgbgZJLMUUEKDU6365-25-30 18:10:00 Test Item Value Reference Range Interpretation Comments MCHC (test code = MCHC) 32.2 32.0-36.0 [facility] HospitalRrazjbdALKSAHOHHT2834-94-08 18:10:00 Test Item Value Reference Range Interpretation Comments Hgb (test code = Hgb) 11.3 12.0-16.0 [place] 383728-12-26 18:10:00 Test Item Value Reference Range Interpretation Comments RBC (test code = RBC) 3.75 4.20-5.40 [facility] HospitalZcerpkyOHRPOASDBK0380-15-08 18:10:00 Test Item Value Reference Range Interpretation Comments WBC (test code = WBC) 5.4 3.7-10.4 [facility] HospitalPgffrjgQHUXPLOFAF1311-33-28 18:10:00 Test Item Value Reference Range Interpretation Comments Basophils (test code = 0.8 See_Comment [Aut omated message] The Basophils) system which ge nerated this result tra nsmitted reference range : <=1.0. The reference r payam was not used to int erpret this result as normal/abnormal . [facility] HospitalKepjonfMXPDBOBOWS0743-33-16 18:10:00 Test Item Value Reference Range Interpretation Comments Eosinophils # (test code 0.1 See_Comment [A utomated message] The = Eosinophils #) system wh h generated this result tra nsmitted reference range : <=0.5. The reference r payam was not used to int erpret this result as normal/abnormal . [facility] HospitalCpofldgWRWGNXPGTB6054-31-70 18:10:00 Test Item Value Reference Range Interpretation Comments Monocytes # (test code 0.5 See_Comment [Aut omated message] The = Monocytes #) system which generated this result tra nsmitted reference range : <=0.8. The reference r payam was not used to int erpret this result as normal/abnormal . [facility] HospitalFmutukkJUCXSTIJUW7795-54-76 18:10:00 Test Item Value Reference Range Interpretation Comments Eosinophils (test code = 2.2 See_Comment [A utomated message] The Eosinophils) system which ge nerated this result tra nsmitted reference range : <=4.0. The reference r payam was not used to int erpret this result as normal/abnormal . [facility] HospitalXcpgrjaTKXGTSWFGJ0555-91-37 18:10:00 Test Item Value Reference Range Interpretation Comments Monocytes (test code = Monocytes) 9.7 2.0-12.0 [facility] HospitalCivgobkSYMJSBNJPD5385-32-43 18:10:00 Test Item Value Reference Range Interpretation Comments Lymphocytes # (test code = Lymphocytes 1.4 1.0-5.5 #) [facility] HospitalEqlpbvxOCWAHMGYQL0991-54-62 18:10:00 Test Item Value Reference Range Interpretation Comments Neutrophils # (test code = Neutrophils 3.4 1.5-8.1 #) [facility] HospitalFijbpioSNGHDGJUOC2701-81-04 18:10:00 Test Item Value Reference Range Interpretation Comments Segs (test code = Segs) 61.7 45.0-75.0 [place] 383728-12-26 18:10:00 Test Item Value Reference Range Interpretation Comments Lymphocytes (test code = Lymphocytes) 25.6 20.0-40.0 [facility]2018-12-26 18:10:00 Test Item Value Reference Range Interpretation Comments Creatinine Lvl (test code = Creatinine 1.01 0.50-1.40 Lvl) [facility]2018-12-26 18:10:00 Test Item Value Reference Range Interpretation Comments Sodium Lvl (test code = Sodium Lvl) 140 135-145 [facility]2018-12-26 18:10:00 Test Item Value Reference Range Interpretation Comments BUN (test code = BUN) 34 7-22 [facility]2018-12-26 18:10:00 Test Item Value Reference Range Interpretation Comments B/C Ratio (test code = B/C Ratio) 34 1 6-25 [place] 110138-12-26 18:10:00 Test Item Value Reference Range Interpretation Comments AGAP (test code = AGAP) 13.5 10.0-20.0 [place] 110138-12-26 18:10:00 Test Item Value Reference Range Interpretation Comments A/G Ratio (test code = A/G Ratio) 0.9 1 0.7-1.6 [place] 110138-12-26 18:10:00 Test Item Value Reference Range Interpretation Comments Globulin (test code = Globulin) 4.0 2.7-4.2 [facility] Hospit[id number] 18:10:00 Test Item Value Reference Range Interpretation Comments Platelet (test code = Platelet) 195 133-450 [facility] Hospit[id number] 18:10:00 Test Item Value Reference Range Interpretation Comments MPV (test code = MPV) 8.5 7.4-10.4 [place] 383728-12-26 18:10:00 Test Item Value Reference Range Interpretation Comments RDW (test code = RDW) 15.2 11.5-14.5 [facility] HospitalMevkwmlPNCAFAXUDS7643-60-15 18:10:00 Test Item Value Reference Range Interpretation Comments Hct (test code = Hct) 35.1 36.0-48.0 [facility] HospitalVenlzvyDUFETUDGXP6605-96-65 18:10:00 Test Item Value Reference Range Interpretation Comments MCH (test code = MCH) 30.2 pg 27.0-31.0 [facility] HospitalXgmiqeaATKPPCXCTC3343-16-62 18:10:00 Test Item Value Reference Range Interpretation Comments MCV (test code = MCV) 93.7 80.0-98.0 [facility] HospitalKiafazmMEKCCZVXEP1575-13-63 18:10:00 Test Item Value Reference Range Interpretation Comments MCHC (test code = MCHC) 32.2 32.0-36.0 [facility] HospitalTpwuazoCZMSIADOXD8663-91-00 18:10:00 Test Item Value Reference Range Interpretation Comments Hgb (test code = Hgb) 11.3 12.0-16.0 [facility] HospitalYpdkmyaOZKFBSJAEG5690-87-28 18:10:00 Test Item Value Reference Range Interpretation Comments RBC (test code = RBC) 3.75 4.20-5.40 [place] 383728-12-26 18:10:00 Test Item Value Reference Range Interpretation Comments WBC (test code = WBC) 5.4 3.7-10.4 [facility] HospitalIapkyyrVTWVIDWKJD7187-94-36 18:10:00 Test Item Value Reference Range Interpretation Comments Basophils (test code = 0.8 See_Comment [Aut omated message] The Basophils) system which ge nerated this result tra nsmitted reference range : <=1.0. The reference r payam was not used to int erpret this result as normal/abnormal . [facility] HospitalMwanzcsQDJLNAYMVX0016-03-40 18:10:00 Test Item Value Reference Range Interpretation Comments Eosinophils # (test code 0.1 See_Comment [A utomated message] The = Eosinophils #) system whic h generated this result tra nsmitted reference range : <=0.5. The reference r payam was not used to int erpret this result as normal/abnormal . [facility] HospitalJwfdfsxFVLVPAGAZY7769-42-35 18:10:00 Test Item Value Reference Range Interpretation Comments Monocytes # (test code 0.5 See_Comment [Aut omated message] The = Monocytes #) system which generated this result tra nsmitted reference range : <=0.8. The reference r payam was not used to int erpret this result as normal/abnormal . [facility] HospitalQgnlgvqAKPTVTBNTC6858-57-64 18:10:00 Test Item Value Reference Range Interpretation Comments Eosinophils (test code = 2.2 See_Comment [A utomated message] The Eosinophils) system which ge nerated this result tra nsmitted reference range : <=4.0. The reference r payam was not used to int erpret this result as normal/abnormal . [facility] HospitalPfymprlSRPTZITFCT2486-08-31 18:10:00 Test Item Value Reference Range Interpretation Comments Monocytes (test code = Monocytes) 9.7 2.0-12.0 [facility] HospitalXvoahdjALYYZTYRWW2492-35-09 18:10:00 Test Item Value Reference Range Interpretation Comments Lymphocytes # (test code = Lymphocytes 1.4 1.0-5.5 #) [facility] HospitalRaqbgfjIEDJNFTVFW1896-06-43 18:10:00 Test Item Value Reference Range Interpretation Comments Neutrophils # (test code = Neutrophils 3.4 1.5-8.1 #) [facility] Hospit[id number] 18:10:00 Test Item Value Reference Range Interpretation Comments Segs (test code = Segs) 61.7 45.0-75.0 [facility] HospitalMxavmfeDJUXBEOATB8848-52-61 18:10:00 Test Item Value Reference Range Interpretation Comments Lymphocytes (test code = Lymphocytes) 25.6 20.0-40.0 [facility]2018-12-26 18:10:00 Test Item Value Reference Range Interpretation Comments eGFR (test code = eGFR) 69 [place] 110138-12-26 18:10:00 Test Item Value Reference Range Interpretation Comments Albumin Lvl (test code = Albumin Lvl) 3.5 3.5-5.0 [place] 110138-12-26 18:10:00 Test Item Value Reference Range Interpretation Comments AST (test code = AST) 19 See_Comment [Auto mated message] The system which ge nerated this result transmit belia reference range : <=37. The reference range was not used to interpr et this result as leidy l/abnormal. [place] 110138-12-26 18:10:00 Test Item Value Reference Range Interpretation Comments ALT (test code = ALT) 19 See_Comment [Auto mated message] The system which ge nerated this result transmit belia reference range : <=65. The reference range was not used to interpr et this result as leidy l/abnormal. [place] 110138-12-26 18:10:00 Test Item Value Reference Range Interpretation Comments Alk Phos (test code = Alk Phos) 34 39-136 [place] 110138-12-26 18:10:00 Test Item Value Reference Range Interpretation Comments Bili Total (test code = Bili Total) 0.8 0.2-1.3 [place] 110138-12-26 18:10:00 Test Item Value Reference Range Interpretation Comments Glucose Lvl (test code = Glucose Lvl) 93 70-99 [place] 110138-12-26 18:10:00 Test Item Value Reference Range Interpretation Comments Total Protein (test code = Total 7.5 6.4-8.4 Protein) [place] 110138-12-26 18:10:00 Test Item Value Reference Range Interpretation Comments Calcium Lvl (test code = Calcium Lvl) 10.0 8.5-10.5 [place] 110138-12-26 18:10:00 Test Item Value Reference Range Interpretation Comments CO2 (test code = CO2) 25 24-32 [place] 110138-12-26 18:10:00 Test Item Value Reference Range Interpretation Comments Chloride Lvl (test code = Chloride Lvl) 105 95-109 [place] 110138-12-26 18:10:00 Test Item Value Reference Range Interpretation Comments Potassium Lvl (test code = Potassium 3.5 3.5-5.1 Lvl) [facility], [facility] INS W/PORT [id number] 17:06:00Reason for Exam:->C50.919FINAL REPORT HISTORY: Breast cancer [...] MDReport Verified Date/Time: 11/18/2017 17:06:51 Reading Location: [facility] Radiology Reading Room RAD, CHEST, 1 VIEW, NON [id number] 16:03:00Reason for Exam:->C50.919 FINAL REPORT Chest, 1 [...] cavoatrial junction, no pneumothorax. Signed: Kirk Morris Verified Date/Time: 11/18/2017 16:03:06 Reading Location: [address] Transitional Reading Room CBC W/PLT COUNT & AUTO [id number] 13:03:00 Test Item Value Reference Range Interpretation [...] K/ L 0.00-0.20 (test code = 417) PT/[id number] 12:58:00 Test Item Value Reference Range Interpretation [...]
[2022-05-12] MEDS ORDERED: ASPIRIN 81 MG CHEWABLE TABLET ONE (19:24)
[2022-05-12] MEDS ORDERED: NA CHLORIDE 0.9% 1,000 ML ONE (19:24)
[2022-05-12 19:50] LABS: Urine Blood 1+ (Negative); Urine Glucose Negative (Negative); Urine Protein Negative (Negative); Urine Specific Gravity >=1.030 (1.005-1.030); Urine pH 5.5 (5.0-7.0)
--- NOTE | 2022-05-12 20:03 | RAD REPORT ---
EXAM DESCRIPTION: RAD - Chest Single View - 05/12/2022 7:39 pm CLINICAL HISTORY: CHEST PAIN Chest pain. COMPARISON: Chest Single View dated 01/19/2022; Chest Pa And Lat (2 Views) dated 05/06/2018; CHEST PA AND LAT 2 VIEW dated 04/07/2009; CHEST PA AND LAT 2 VIEW dated 12/18/2004 FINDINGS: Portable technique limits examination quality. Interstitial markings are mildly prominent. The heart is mildly prominent size. No displaced fracture s. IMPRESSION: Mild CHF.
--- NOTE | 2022-05-12 20:14 | RAD REPORT ---
EXAM DESCRIPTION: US - Extrem Venous W Compress Nish - 05/12/2022 8:08 pm CLINICAL HISTORY: PAIN Bilateral leg edema and swelling. COMPARISON: EXT VENOUS UNI LTD dated 02/23/2008 TECHNIQUE: Real-time sonographic interrogation of the left and right lower extremity deep venous sys tems was performed. FINDINGS: Normal compressibility, flow augmentation, phasic flow and spontaneous flow is identified in both the left and right lower extremity deep venous systems. IMPRESSION: No sonographic evidence of left or right lower extremity deep venous thrombosis.
[2022-05-12 20:38] LABS: Absolute Lymphocytes (CBC) 1.1 K/uL (0.7-4.9); Hematocrit 39.6 % (36.0-45.0); Lymphocytes % 18.3 % (15.3-44.8); MCV 88.1 fL (80-100); MPV 7.7 fL (7.6-11.3)
[2022-05-12 20:40] LABS: Protime INR 1.05
[2022-05-12 20:51] LABS: SARS-CoV-2 Antigen Rapid Res Negative (Negative)
[2022-05-12 20:55] LABS: Albumin 3.7 g/dL (3.4-5.0); Bilirubin Direct 0.1 mg/dL (0-0.2); Bilirubin Total 0.6 mg/dL (0.2-1.0); Potassium 4.6 mmol/L (3.5-5.1); Protein, Total 8.2 g/dL (6.4-8.2)
[2022-05-12 20:57] LABS: Troponin High Sensitivity 8.8 pg/mL (<58.9)
--- NOTE | 2022-05-12 21:23 | RAD REPORT ---
EXAM DESCRIPTION: CT - Chest For Pe Angio - 05/12/2022 9:14 pm CLINICAL HISTORY: Chest pain. chest pain COMPARISON: Extrem Venous W Compress Nish dated 05/12/2022 TECHNIQUE: CT angiogram of the pulmonary arteries was performed with MIP. All CT scans are performed using dose optimization technique as appropriate and may include automated exposure control or mA/KV adjustment according to patient size. FINDINGS: Small filling defects are seen in the medial right lower lobe segmental pulmonary arterial branches. No additional pulmonary embolism. No acute aortic finding demonstrated. The lungs are clear. No significant pericardial or pleural fluid. No concerning bony finding. IMPRESSION: Positive for mild pulmonary thromboembolism in the medial right lower lobe segmental bra nches. No acute lung findings.
--- NOTE | 2022-05-12 22:18 | ER ---
Nurse's Notes [facility] Name: Grace Onofre Age: 66 yrs Sex: Female : 1955 Arrival Date: 05/12/2022 Time: 18:32 Bed 6 Private MD: Diagnosis: Pulmonary embolism without acute cor pulmonale Presentation: 05/12 18:38 Chief complaint: Intermittent right sided chest pain and pain that radiates left arm x hb 30 minutes. Coronavirus screen: At this time, the client does not indicate any symptoms associated with coronavirus-19. Ebola Screen: No symptoms or risks identified at this time. Initial Sepsis Screen: Does the patient meet any 2 criteria? No. Patient's initial sepsis screen is negative. Does the patient have a suspected source of infection? No. Patient's initial sepsis screen is negative. Risk Assessment: Do you want to hurt yourself or someone else? Patient reports no desire to harm self or others. Onset of symptoms was May 12, 2022. 18:38 Method Of Arrival: Wheelchair hb 18:38 Acuity: PARKER 3 hb Triage Assessment: 23:04 General: Appears in no apparent distress. Pain: Complains of pain in chest and left leg kl and left arm. Historical: - Allergies: 18:39 No Known Allergies; hb - PMHx: 18:39 Hypertensive disorder; hb 23:04 lymphadema left leg; kl - PSHx: 18:39 breast; Total abdominal hysterectomy; hb 23:04 tumor removal left leg; kl - Immunization history:: Adult Immunizations up to date. - Family history:: not pertinent. - Social history:: Smoking status: unknown. Screenin:54 [facility] ED Fall Risk Assessment (Adult) History of falling in the last 3 months, aa9 including since admission No falls in past 3 months (0 pts) Confusion or Disorientation No (0 pts) Intoxicated or Sedated No (0 pts) Impaired Gait Yes (1 pt) Mobility Assist Device Used Yes (1 pt) Altered Elimination No (0 pt) Score/Fall Risk Level 3 or more points = High Risk Oriented to surroundings, Educated pt \T\ family on fall prevention, incl call for assistance when getting out of bed. Abuse screen: Denies threats or abuse. Denies injuries from another. Nutritional screening: No deficits noted. Tuberculosis screening: No symptoms or risk factors identified. Assessment: 19:51 General: Appears in no apparent distress. uncomfortable, obese, Behavior is calm, aa9 cooperative, appropriate for age. Pain: Complains of pain in chest and left arm Quality of pain is described as tightening Pain began suddenly, Is. Cardiovascular: Patient's skin is warm and dry. Respiratory: Airway is patent Respiratory effort is even, unlabored. 21:17 Reassessment: Patient appears in no apparent distress at this time. Patient and/or kl family updated on plan of care and expected duration. Pain level reassessed. Patient is alert, oriented x 3, equal unlabored respirations, skin warm/dry/pink. Patient denies pain at this time. Patient states feeling better. Vital Signs: 18:38 BP 156 / 109; Pulse 88; Resp 16; Temp 97.7; Pulse Ox 100% on R/A; Weight 109.77 kg; hb Height 5 ft. 2 in. (157.48 cm); Pain 3/10; 19:45 BP 139 / 67; Pulse 72; Resp 20 S; Pulse Ox 100% on R/A; aa9 20:54 BP 123 / 54; Pulse 76; Resp 16 S; Pulse Ox 99% ; aa9 22:24 BP 109 / 45; Pulse 82; Resp 20; Pulse Ox 93% on R/A; kl 23:04 BP 121 / 73; kl 18:38 Body Mass Index 44.26 (109.77 kg, 157.48 cm) hb ED Course: 18:32 Patient arrived in ED. as 18:39 Triage completed. hb 18:39 Arm band placed on. hb 18:43 Fran Todd MD is Attending Physician. christina 18:44 Praveen Breen, RN is Primary Nurse. bp 19:00 Fran Grewal PA is PHCP. cp 19:40 XRAY Chest (1 view) In Process Unspecified. EDMS 20:10 US Extremity Venous W Compression Nish In Process Unspecified. EDMS 20:20 Initial lab(s) drawn, by me, sent to lab. Inserted saline lock: 18 gauge in right bb antecubital area, using aseptic technique. Blood collected. 20:55 Patient has correct armband on for positive identification. Client placed on continuous aa9 cardiac and pulse oximetry monitoring. NIBP monitoring applied. 20:55 No provider procedures requiring assistance completed. Patient maintains SpO2 aa9 saturation greater than 95% on room air. 21:16 Chest For Pe Angio In Process Unspecified. EDMS 22:17 Lucius Fleming MD is Hospitalizing Provider. cp 23:11 Patient admitted, IV remains in place. kl Administered Medications: 20:31 Drug: Aspirin Chewable Tablet 162 mg Route: PO; 20:32 Drug: NS 0.9% 1000 ml Route: IV; Rate: 125 ml/hr; Site: right antecubital; 22:41 Drug: Lovenox (enoxaparin) 1 mg/kg Route: Sub-Q; Site: left lower abdomen; Medication: 20:55 VIS not applicable for this client. aa9 Outcome: 22:18 Decision to Hospitalize by Provider. cp 23:11 Admitted to Med/surg accompanied by tech, via wheelchair, with chart, Report called to anastacia herrmann rn 23:11 Condition: stable 23:11 Discharge instructions given to patient, family, Instructed on the need for admit, Demonstrated understanding of instructions. 23:45 Patient left the ED. Signatures: Dispatcher [employer] EDMS Syl Chua, ABI RN Fran Ramires MD MD cha Martinez, Amelia as Ballard, Brenda, RN RN Fran Cintron, PA PA Saba Bradshaw, ABI RN Praveen Barnett RN RN bp Avalos, Aylin, RN RN aa9
--- NOTE | 2022-05-12 22:18 | EDPHYS ---
Physician Documentation [facility] Name: Grace Onofre Age: 66 yrs Sex: Female : 1955 Arrival Date: 05/12/2022 Time: 18:32 Bed 6 Private MD: ED Physician Fran Todd HPI: 05/12 18:53 This 66 yrs old Black Female presents to ER via Wheelchair with complaints of Chest christina Pain, Arm Pain. 18:53 The patient or guardian reports chest pain that is located primarily in the substernal christina area. Onset: just prior to arrival. The pain radiates to the left arm. Associated signs and symptoms: Pertinent positives: dizziness. The chest pain is described as dull. Duration: The patient or guardian reports a single episode, that is now resolved. Severity of pain: At its worst the pain was mild moderate just prior to arrival, in the emergency department the pain has resolved. The patient has not experienced similar symptoms in the past. Historical: - Allergies: 18:39 No Known Allergies; hb - PMHx: 18:39 Hypertensive disorder; hb 23:04 lymphadema left leg; kl - PSHx: 18:39 breast; Total abdominal hysterectomy; hb 23:04 tumor removal left leg; kl - Immunization history:: Adult Immunizations up to date. - Family history:: not pertinent. - Social history:: Smoking status: unknown. ROS: 18:53 Constitutional: Negative for fever, chills, and weight loss, Eyes: Negative for injury, christina pain, redness, and discharge, ENT: Negative for injury, pain, and discharge, Neck: Negative for injury, pain, and swelling, Respiratory: Negative for shortness of breath, cough, wheezing, and pleuritic chest pain, Abdomen/GI: Negative for abdominal pain, nausea, vomiting, diarrhea, and constipation, Back: Negative for injury and pain, : Negative for injury, bleeding, discharge, and swelling, Skin: Negative for injury, rash, and discoloration, Neuro: Negative for headache, weakness, numbness, tingling, and seizure, Psych: Negative for depression, anxiety, suicide ideation, homicidal ideation, and hallucinations, Allergy/Immunology: Negative for hives, rash, and allergies, Endocrine: Negative for neck swelling, polydipsia, polyuria, polyphagia, and marked weight changes, Hematologic/Lymphatic: Negative for swollen nodes, abnormal bleeding, and unusual bruising. 18:53 Cardiovascular: Positive for chest pain. 18:53 MS/extremity: Positive for decreased range of motion, of the left arm. Exam: 18:53 Constitutional: This is a well developed, well nourished patient who is awake, alert, christina and in no acute distress. Head/Face: Normocephalic, atraumatic. Eyes: Pupils equal round and reactive to light, extra-ocular motions intact. Lids and lashes normal. Conjunctiva and sclera are non-icteric and not injected. Cornea within normal limits. Periorbital areas with no swelling, redness, or edema. ENT: Nares patent. No nasal discharge, no septal abnormalities noted. Tympanic membranes are normal and external auditory canals are clear. Oropharynx with no redness, swelling, or masses, exudates, or evidence of obstruction, uvula midline. Mucous membranes moist. Neck: Trachea midline, no thyromegaly or masses palpated, and no cervical lymphadenopathy. Supple, full range of motion without nuchal rigidity, or vertebral point tenderness. No Meningismus. Chest/axilla: Normal chest wall appearance and motion. Nontender with no deformity. No lesions are appreciated. Cardiovascular: Regular rate and rhythm with a normal S1 and S2. No gallops, murmurs, or rubs. Normal PMI, no JVD. No pulse deficits. Respiratory: Lungs have equal breath sounds bilaterally, clear to auscultation and percussion. No rales, rhonchi or wheezes noted. No increased work of breathing, no retractions or nasal flaring. Abdomen/GI: Soft, non-tender, with normal bowel sounds. No distension or tympany. No guarding or rebound. No evidence of tenderness throughout. Back: No spinal tenderness. No costovertebral tenderness. Full range of motion. Female : Normal external genitalia. Skin: Warm, dry with normal turgor. Normal color with no rashes, no lesions, and no evidence of cellulitis. Neuro: Awake and alert, GCS 15, oriented to person, place, time, and situation. Cranial nerves II-XII grossly intact. Motor strength 5/5 in all extremities. Sensory grossly intact. Cerebellar exam normal. Normal gait. Psych: Awake, alert, with orientation to person, place and time. Behavior, mood, and affect are within normal limits. 18:53 Musculoskeletal/extremity: DVT Exam: No signs of deep vein thrombosis. no pain, no tenderness, negative Homans' sign noted on exam, no appreciated bluish discoloration, no erythema, no increased warmth, swelling, that is mild, of the left leg, of the left leg. 19:32 ECG was reviewed by the Attending Physician. cp Vital Signs: 18:38 BP 156 / 109; Pulse 88; Resp 16; Temp 97.7; Pulse Ox 100% on R/A; Weight 109.77 kg; hb Height 5 ft. 2 in. (157.48 cm); Pain 3/10; 19:45 BP 139 / 67; Pulse 72; Resp 20 S; Pulse Ox 100% on R/A; aa9 20:54 BP 123 / 54; Pulse 76; Resp 16 S; Pulse Ox 99% ; aa9 22:24 BP 109 / 45; Pulse 82; Resp 20; Pulse Ox 93% on R/A; kl 23:04 BP 121 / 73; kl 18:38 Body Mass Index 44.26 (109.77 kg, 157.48 cm) hb MDM: 18:43 Patient medically screened. christina 18:56 Differential diagnosis: abnormal EKG, acute myocardial infarction, anxiety, christina costochondritis, esophagitis, hiatal hernia, pancreatitis, pericarditis, stable angina, unstable angina. HEART Score:. The patient was given aspirin in the Emergency Department. Data reviewed: vital signs, nurses notes, lab test result(s), EKG, radiologic studies, doppler, plain films. Test interpretation: by ED physician or midlevel provider: ECG, plain radiologic studies. Counseling: I had a detailed discussion with the patient and/or guardian regarding: the historical points, exam findings, and any diagnostic results supporting the discharge/admit diagnosis, lab results, radiology results. 22:15 Physician consultation: Lucius Fleming MD was called at 22:15, was contacted at 22:15, cp regarding admission, to the telemetry unit. patient's condition. 05/12 18:44 Order name: Basic Metabolic Panel; Complete Time: 21:22 christina 05/12 21:23 Interpretation: Normal except: BUN 43; CRE 1.40; GFR 41. cp 05/12 18:44 Order name: CBC with Diff; Complete Time: 20:48 christina 05/12 18:44 Order name: LFT's; Complete Time: 21:22 [facility] 05/12 21:23 Interpretation: Normal except: GLOB 4.5; A/G 0.8. cp 05/12 18:44 Order name: Magnesium; Complete Time: 21:22 [facility] 05/12 18:44 Order name: NT PRO-BNP; Complete Time: 21:22 [facility] 05/12 18:44 Order name: PT-INR; Complete Time: 21:22 [facility] 05/12 18:44 Order name: Troponin HS; Complete Time: 21:22 [facility] 05/12 18:44 Order name: Lipase; Complete Time: 21:22 [facility] 05/12 18:44 Order name: SARS RAPID; Complete Time: 21:22 [facility] 05/12 19:51 Order name: Urine Dipstick-Ancillary; Complete Time: 20:06 [facility] 05/12 20:06 Interpretation: Reviewed. 05/12 20:37 Order name: D-Dimer; Complete Time: 21:22 [facility] 05/12 22:49 Order name: Basic Metabolic Panel [facility] 05/12 22:49 Order name: Basic Metabolic Panel [facility] 05/12 18:44 Order name: XRAY Chest (1 view); Complete Time: 20:06 [facility] 05/12 20:06 Interpretation: Report review. 05/12 18:44 Order name: EKG; Complete Time: 18:45 [facility] 05/12 18:53 Order name: US Extremity Venous W Compression Nish; Complete Time: 20:48 [facility] 05/12 20:50 Order name: CT Chest For PE Angio 05/12 20:54 Order name: Chest For Pe Angio [facility] 05/12 22:49 Order name: Regular EDPR 05/12 22:49 Order name: Echo with Doppler [facility] 05/12 22:49 Order name: EKG Electrocardiogram EDPR 05/12 22:49 Order name: CBC with Automated Diff [facility] 05/12 22:49 Order name: CBC with Automated Diff [facility] 05/12 22:49 Order name: Troponin High Sensitivity EDPR 05/12 22:49 Order name: Troponin High Sensitivity [facility] 05/12 22:49 Order name: Troponin High Sensitivity [facility] 05/12 18:44 Order name: Cardiac monitoring; Complete Time: 19:32 [facility] 05/12 18:44 Order name: EKG - Nurse/Tech; Complete Time: 19:32 [facility] 05/12 18:44 Order name: IV Saline Lock; Complete Time: 20:46 [facility] 05/12 18:44 Order name: Labs collected and sent; Complete Time: 20:46 [facility] 05/12 18:44 Order name: O2 Per Protocol; Complete Time: 19:32 [facility] 05/12 18:44 Order name: O2 Sat Monitoring; Complete Time: 19:32 [facility] 05/12 18:44 Order name: Urine Dipstick-Ancillary (obtain specimen); Complete Time: 20:46 [facility] 05/12 22:49 Order name: EKG Electrocardiogram EDMS 05/12 22:49 Order name: EKG Electrocardiogram EDMS 05/12 22:49 Order name: EKG Electrocardiogram EDPR EC:32 Rate is 71 beats/min. Rhythm is regular. CT interval is normal. QRS interval is normal. cp QT interval is normal. T waves are Inverted in lead aVR. Interpreted by me. Reviewed by me. Administered Medications: 20:31 Drug: Aspirin Chewable Tablet 162 mg Route: PO; kl 20:32 Drug: NS 0.9% 1000 ml Route: IV; Rate: 125 ml/hr; Site: right antecubital; kl 22:41 Drug: Lovenox (enoxaparin) 1 mg/kg Route: Sub-Q; Site: left lower abdomen; kl Disposition Summary: 05/12/22 22:18 Hospitalization Ordered Hospitalization Status: Observation cp Provider: Lucius Fleming cp Location: Telemetry/MedSurg (observation) cp Condition: Stable cp Problem: new cp Symptoms: have improved cp Bed/Room Type: Standard cp Room Assignment: 220(05/12/22 22:57) cg Diagnosis - Pulmonary embolism without acute cor pulmonale cp Forms: - Medication Reconciliation Form cp - SBAR form cp Signatures: Dispatcher [employer] EDMS Syl Chua RN RN kl Anderson, Corey, MD MD cha Page, Corey, PA PA cp Garcia, Cindy, RN RN cg Baxter, Heather, RN RN Corrections: (The following items were deleted from the chart) 20:36 18:59 D-DIMER+COAG.LAB.BRZ ordered. EDPR EDMS 22:57 22:18 cp cg
[2022-05-12] MEDS ORDERED: ENOXAPARIN 100 MG/ML SYR SQ ONE (22:32)
[2022-05-12] MEDS ORDERED: ONDANSETRON 4 MG/2 ML VIAL IV PRN (22:41)
[2022-05-13] MEDS ORDERED: MORPHINE 2 MG/ML SYR IV PRN (00:15)
[2022-05-13 00:20] VITALS: BMI 44.2
[2022-05-13 03:44] VITALS: O2SAT 99
[2022-05-13 04:01] LABS: Absolute Lymphocytes (CBC) 1.7 K/uL (0.7-4.9); Hematocrit 36.6 % (36.0-45.0); MCV 88.1 fL (80-100); MPV 8.1 fL (7.6-11.3); RBC Red Blood Cell Count 4.15 M/uL (3.86-4.86)
[2022-05-13 04:19] LABS: Potassium 4.3 mmol/L (3.5-5.1); Troponin High Sensitivity 14.4 pg/mL (<58.9)
[2022-05-13] MEDS ORDERED: ENOXAPARIN 100 MG/ML SYR SQ SCH (09:00)
[2022-05-13] MEDS ORDERED: ASPIRIN EC 81 MG TAB PO SCH (09:00)
[2022-05-13] MEDS ORDERED: PREGABALIN 150 MG CAP PO PRN (09:38)
[2022-05-13 10:24] LABS: CKMB Creatine Kinase MB 2.6 ng/mL (1.0-3.6); Troponin High Sensitivity 12.9 pg/mL (<58.9)
[2022-05-13 12:02] VITALS: BP 93/47; TEMP 97.3
--- NOTE | 2022-05-13 13:10 | P.SSS ---
Patient History Date of Service: 05/13/22 Reason for admission: R SIDE CHEST PAIN ONCE AND L SIDE ARM PAIN 3 TIMES History of Present Illness: DIDIER IS MOD OBESE LADY WITH HISTORY OF BREAST CANCER THAT IS CURED COMES WITH R SIDE CHEST PAIN. SHE HAS BEEN LESS ACTIVE LATELY. SHE ALSO HAD L SIDE ARM PAIN 3 TIMES AT REST LASTING ABOUT HALF AN HOUR. I ASKED DR. FIGUEREDO DO COME BY FOR THIS AND HE WILL DO STRESS TEST OUTPATIENT. SHE IS STABLE FOR DISCHARGE. Allergies No Known Allergies Allergy (Verified 05/12/22 23:52) Home medications list reviewed: Yes Home Medications: Aspirin [Aspirin EC 81 MG] 81 mg PO DAILY 05/13/22 Finasteride [Propecia] 1 mg PO DAILY 05/13/22 Pregabalin [Lyrica] 150 mg PO BID PRN 05/13/22 Rivaroxaban [Xarelto] 15 mg PO BID #42 tablet 05/13/22 Spironolactone [Aldactone] 50 mg PO DAILY 05/13/22 - Past Medical/Surgical History Has patient received pneumonia vaccine in the past: Yes Diabetic: No -: Fatty Tumor 1984 -: HTN -: Left leg lymphodema -: Hysterectom 1991 -: Rt side Breast Cx-chemo/radiation/sx -: Lt Knee tumor [id number] - Family History Mother -: Kidney disease Sister -: Kidney disease Brother Notes: copd sister2 -: Liver disease - Social History Smoking Status: Never smoker Alcohol use: No CD- Drugs: No Caffeine use: Yes Place of Residence: Home Review of Systems 10-point ROS is otherwise unremarkable Physical Examination - Vital Signs Temperature: 97.3 F Blood Pressure: 93/47 Pulse: 73 Respirations: 16 Pulse Ox (%): 99 - Physical Exam General: Alert, In no apparent distress HEENT: Atraumatic, PERRLA, Mucous membr. moist/pink, EOMI, Sclerae nonicteric Neck: Supple, 2+ carotid pulse no bruit, No LAD, Without JVD or thyroid abnormality Respiratory: Clear to auscultation bilaterally, Normal air movement Cardiovascular: Regular rate/rhythm, Normal S1 S2 Gastrointestinal: Normal bowel sounds, No tenderness Musculoskeletal: No tenderness Integumentary: No rashes Neurological: Normal gait, Normal speech, Normal strength at 5/5 x4 extr, Normal tone, Normal affect Lymphatics: No axilla or inguinal lymphadenopathy - Studies Laboratory Data (last 24 hrs) 05/12/22 20:20: PT 11.5, INR 1.05 05/12/22 20:20: WBC 6.20, Hgb 12.8, Hct 39.6, Plt Count 227 05/12/22 20:20: Sodium 138, Potassium 4.6, BUN 43 H, Creatinine 1.40 H, Glucose 82, Magnesium 2.0, Total Bilirubin 0.6, AST 18, ALT 24, Alkaline Phosphatase 52, Lipase 143 - Diagnosis (Problem(s)) (1) Pulmonary embolism Current Visit: Yes Status: Acute Plan: RIGHT SIDE PAIN. RESOLVED NOW. NO DYSPNEA, NO HYPOXIA SMALL PE ON CT SCAN. XAFRELTO PO THIS IS PROVOKED PE SHE IS LESS ACTIVE AND HAS LYMPHEDEMA. SHE WILL CONTINUE MEDS FOR ABOUT 3 MONTHS FOR A SMALL PE IF HAS RECURRENCE IT WILL BE FORE LIFE TIME. SHE UNDERSTANDS. Qualifiers: Pulmonary embolism type: single subsegmental (without acute cor pulmonale) Qualified Code(s): I26.93 - Single subsegmental pulmonary embolism without acute cor pulmonale (2) Atypical angina Current Visit: Yes Status: Acute Plan: L ARM PAIN CAN BE CARDIAC IN ORIGIN. CE NEG. DR. TERELL MULTANI. - Disposition Disposition: ROUTINE DISCHARGE Condition: FAIR
--- NOTE | 2022-05-13 14:42 | CON ---
Date of Consultation: 05/13/2022 Reason For Consultation: Pulmonary embolism and chest pain. History Of Present Illness: This is a middle-aged female with history of hypertension, lymphedema, p resented to the emergency room with the chest pain on the right side along with mild shortness of todd ath. On evaluation in the emergency room, CTA of the chest showed pulmonary embolism. The patient w as started on anticoagulation and she is pain free at the present time. There is no shortness of todd ath. Past Medical History: As outlined above in the HPI. Medications: Refer reconciliation sheet for detailed list. Allergies: NO KNOWN DRUG ALLERGIES. Family History: No premature coronary artery disease or cancer. Social History: She does not smoke or drink. Does not use any drugs. Review of Systems: All systems reviewed and they were negative except for mentioned in the HPI. Physical Examination: Vital Signs: Reviewed. Head and Neck: Pupils are equal, reactive to light. Intact eye movements. No JVD. No cervical lym phadenopathy. Neck is supple. Thyroid is not enlarged. Lungs: Clear to auscultation bilaterally. No rhonchi, rales, or crackles. No accessory muscle use. Heart: Regular rate and rhythm. No extra sounds. Abdomen: Soft, nontender. Bowel sounds positive. No organomegaly. No masses or hernia. No rigidi ty or rebound. Extremities: No edema, clubbing, or cyanosis. Intact pulses. Skin: No rashes. Neurologic: Alert, awake, oriented x3. No acute focal deficits appreciated. Investigations: Cardiac enzymes are negative. BUN 38, creatinine 1.04, and hemoglobin is 11.9, and the CTA of the lungs showed she has a pulmonary embolism in the medial right lower lobe that is mild. Assessment And Recommendation: 1.Acute pulmonary embolism. Patient is hemodynamically and clinically stable. No shortness of kita th. No hypoxia. No tachycardia. Start the patient on Xarelto and she can be released from Cardiolo gy standpoint and I will plan to evaluate her as an outpatient with an echocardiogram and stress test . 2.Chest pain. This is due to the pulmonary embolism. We will plan to follow up as an outpatient wi th the echo and stress test. Patient can be released from Cardiology standpoint. SR/MODL Voice ID: [id number] Report ID: [id number]
--- NOTE | 2022-05-13 16:03 | EKG ---
Test Date: 2022-05-13 Test Time: 08:31:42 Crisis Counselor: CIERA MEASUREMENT RESULTS: Intervals: Rate: 64 ND: 154 QRSD: 88 QT: 418 QTc: 431 [place]: P: 53 ND: 154 QRS: -5 T: 7 INTERPRETIVE STATEMENTS: Normal sinus rhythm Inferior infarct, age undetermined Possible Anterior infarct, age undetermined Abnormal ECG Compared to ECG 05/12/2022 19:26:40 Myocardial infarct finding now present Electronically Signed On 05-13-22 16:02:52 HOME HEALTH ADMINISTRATOR by Michael Black
--- NOTE | 2022-05-13 16:05 | EKG ---
Test Date: 2022-05-12 Test Time: 19:26:40 Packager Hand: AISSATOU MEASUREMENT RESULTS: Intervals: Rate: 71 MI: 158 QRSD: 82 QT: 370 QTc: 402 [place]: P: 63 MI: 158 QRS: -4 T: 24 INTERPRETIVE STATEMENTS: Normal sinus rhythm Normal ECG Compared to ECG 01/19/2022 03:09:30 Myocardial infarct finding no longer present Electronically Signed On 05-13-22 16:03:59 POWDERED SUGAR SUPERVISOR by Michael Black
[2022-05-14] MEDS ORDERED: FINASTERIDE 1 MG PO SCH (09:00)
[2022-05-14] MEDS ORDERED: SPIRONOLACTONE 25 MG TABLET PO SCH (09:00)
[2022-05-14] MEDS ORDERED: ASPIRIN EC 81 MG TAB PO SCH (09:00)
== END 2022-05-13 13:55 | disposition home or self-care (01) ==
LOC: ER 18:30 → ERHOLD 22:40 → 2ND 23:11
PROVIDERS: ADMIT Internal Medicine; ATTEND Internal Medicine
DX: I26.99 Other pulmonary embolism without acute cor pulmonale (principal); I20.9 Angina pectoris, unspecified; I89.0 Lymphedema, not elsewhere classified; Z85.3 Personal history of malignant neoplasm of breast; I10 Essential (primary) hypertension; Z20.822 Contact with and (suspected) exposure to COVID-19
CPT/HCPCS: 36415; 71045; 71275; 80048; 80076; 81003; 82550; 82553; 83690; 83735; 83880; 84484; 85025; 85379; 85610; 87811; 93005; 93970; 96372; 99285; G0378; J1650; J7030; Q9967